=== PATIENT | female | born 1970 | race Caucasian/White ===

== ENCOUNTER → 2020-02-23 11:46 | Outpatient (BNVA) | payer OTHER, SELFPAY | PROVIDERS: PCP Internal Medicine; Visit Provider Internal Medicine Medical Oncology | DX: I26.99 Other pulmonary embolism without acute cor pulmonale (principal); Z51.81 Encounter for therapeutic drug level monitoring; Z79.01 Long term (current) use of anticoagulants | CPT/HCPCS: 85610; 99211 ==

== ENCOUNTER → 2020-03-08 10:54 | Outpatient (BNVA) | payer OTHER, SELFPAY | PROVIDERS: PCP Internal Medicine; Visit Provider Internal Medicine | DX: I26.99 Other pulmonary embolism without acute cor pulmonale (principal); Z79.01 Long term (current) use of anticoagulants; Z51.81 Encounter for therapeutic drug level monitoring | CPT/HCPCS: 85610; 99211 ==

== ENCOUNTER → 2020-03-17 08:52 | Outpatient (BNVA) | payer OTHER, SELFPAY | PROVIDERS: PCP Internal Medicine; Referring Provider Internal Medicine; Visit Provider Internal Medicine | DX: I26.99 Other pulmonary embolism without acute cor pulmonale (principal); Z51.81 Encounter for therapeutic drug level monitoring; Z79.01 Long term (current) use of anticoagulants | CPT/HCPCS: 85610 ==

== ENCOUNTER → 2020-03-24 09:44 | Outpatient (BNVA) | payer OTHER, SELFPAY | PROVIDERS: PCP Internal Medicine; Visit Provider Internal Medicine | DX: I26.99 Other pulmonary embolism without acute cor pulmonale (principal); Z51.81 Encounter for therapeutic drug level monitoring; Z79.01 Long term (current) use of anticoagulants | CPT/HCPCS: 85610; 99211 ==

== ENCOUNTER → 2020-03-31 09:30 | Outpatient (BNVA) | payer OTHER, SELFPAY | PROVIDERS: PCP Internal Medicine; Visit Provider Internal Medicine | DX: I26.99 Other pulmonary embolism without acute cor pulmonale (principal); Z51.81 Encounter for therapeutic drug level monitoring; Z79.01 Long term (current) use of anticoagulants | CPT/HCPCS: 85610; 99211 ==

== ENCOUNTER → 2020-04-12 09:40 | Outpatient (BNVA) | payer OTHER, SELFPAY | PROVIDERS: PCP Internal Medicine; Visit Provider Internal Medicine | DX: I26.99 Other pulmonary embolism without acute cor pulmonale (principal); Z51.81 Encounter for therapeutic drug level monitoring; Z79.01 Long term (current) use of anticoagulants | CPT/HCPCS: 85610; 99211 ==

== ENCOUNTER → 2020-04-20 08:56 | Outpatient (BNVA) | payer OTHER, SELFPAY | PROVIDERS: PCP Internal Medicine; Visit Provider Internal Medicine | DX: I26.99 Other pulmonary embolism without acute cor pulmonale (principal); Z51.81 Encounter for therapeutic drug level monitoring; Z79.01 Long term (current) use of anticoagulants | CPT/HCPCS: 85610; 99211 ==

== ENCOUNTER 2020-04-25 07:26 | Outpatient (REF) | payer OTHER, SELFPAY ==
--- NOTE | 2020-04-25 07:30 | MM_ITS ---
EXAMINATION: MM DIAGNOSTIC DIGITAL BREAST TOMOSYNTHESIS, BILATERAL TARGETED LEFT BREAST ULTRASOUND CLINICAL INFORMATION: Palpable abnormality upper outer aspect of the left breast with redness and pain. The lifetime risk of breast cancer based on the Tyrer-Cuzick Model is 17.3%. COMPARISON: Mammography: 12/02/2018 and studies dating back to 12/28/2010. TECHNIQUE: Digital breast tomosynthesis is performed in both the craniocaudal and mediolateral oblique views along with computer-aided detection (CAD). Synthesized 2D images are generated from the tomosynthesis. Targeted left breast ultrasound upper outer aspect. FINDINGS: The breasts are heterogeneously dense, which may obscure small masses (ACR BI-RADS breast composition Category c). 3 circumscribed densities are seen within the upper outer aspect of the left breast with one corresponding to previously biopsied solid lesion which was benign. Targeted left breast ultrasound demonstrated a 1 x 1.8 x 1.1 cm cyst 2 o'clock position 7 cm from the nipple. Previously biopsied solid lesion 2 o'clock position 6 cm from nipple noted measuring approximately 2.0 x 1.3 cm in size. At the 2 o'clock position 3 cm from nipple there is a cyst measuring approximately 1.1 x 0.8 x 1.2 cm in size. At approximately 2 o'clock position 4 cm from nipple there is a hypoechoic lesion with distal sound shadowing and no distal sound enhancement. Ultrasound-guided core biopsy of this lesion is recommended. Results are discussed with the patient at time of visit. Dr. Champagne was notified of the above recommendation. MM/MM tomosynthesis diagnostic BI IMPRESSION: Numerous cysts upper outer aspect of the left breast. Hypoechoic poorly-circumscribed lesion with distal sound shadowing 2 o'clock position approximately 4 cm from the nipple of the left breast for which ultrasound-guided core biopsy is recommended. ASSESSMENT: BI-RADS 4: Suspicious RECOMMENDATION: Ultrasound-guided core biopsy left breast.
--- NOTE | 2020-04-25 07:32 | US_ITS ---
EXAMINATION: US DIAGNOSTIC ULTRASOUND BREAST, LEFT CLINICAL INFORMATION: Palpable region which is red and tender. COMPARISON: 2018 and 11/23/2018. TECHNIQUE: Ultrasound of the breast is performed with real-time nguyen scale imaging and color Doppler. FINDINGS: Targeted left breast ultrasound demonstrated a 1 x 1.8 x 1.1 cm cyst 2 o'clock position 7 cm from the nipple. Previously biopsied solid lesion 2 o'clock position 6 cm from nipple noted measuring approximately 2.0 x 1.3 cm in size. At the 2 o'clock position 3 cm from nipple there is a cyst measuring approximately 1.1 x 0.8 x 1.2 cm in size. At approximately 2 o'clock position 4 cm from nipple there is a hypoechoic lesion with distal sound shadowing and no distal sound enhancement. Ultrasound-guided core biopsy of this lesion is recommended. Results are discussed with the patient at time of visit. Dr. Champagne was notified of the above recommendation. US/US breast LT limited IMPRESSION: Numerous cysts upper outer aspect of the left breast. Hypoechoic poorly-circumscribed lesion with distal sound shadowing 2 o'clock position approximately 4 cm from the nipple of the left breast for which ultrasound-guided core biopsy is recommended. ASSESSMENT: BI-RADS 4: Suspicious RECOMMENDATION: Ultrasound-guided core biopsy left breast.
== END 2020-04-25 07:27 | disposition home or self-care (01) ==
LOC: HO.MAMMO 07:26
PROVIDERS: PCP Internal Medicine; Visit Provider Internal Medicine Medical Oncology
DX: N64.89 Other specified disorders of breast (principal)
CPT/HCPCS: 76642; 77062; 77066

== ENCOUNTER → 2020-04-28 09:14 | Outpatient (BNVA) | payer OTHER, SELFPAY | PROVIDERS: PCP Internal Medicine; Visit Provider Internal Medicine | DX: I26.99 Other pulmonary embolism without acute cor pulmonale (principal); Z51.81 Encounter for therapeutic drug level monitoring; Z79.01 Long term (current) use of anticoagulants | CPT/HCPCS: 85610; 99211 ==

== ENCOUNTER → 2020-05-05 13:08 | Outpatient (BNVA) | payer OTHER, SELFPAY | PROVIDERS: PCP Internal Medicine; Visit Provider Internal Medicine | DX: I26.99 Other pulmonary embolism without acute cor pulmonale (principal); Z51.81 Encounter for therapeutic drug level monitoring; Z79.01 Long term (current) use of anticoagulants | CPT/HCPCS: 85610; 99211 ==

== ENCOUNTER 2020-05-08 07:43 | Outpatient (REF) | payer OTHER, SELFPAY ==
--- NOTE | 2020-05-08 | US_ITS ---
EXAMINATION: US DIAGNOSTIC ULTRASOUND BREAST, LEFT CLINICAL INFORMATION: 49-year-old female with recent diagnostic evaluation for palpable area of concern red and tender following minor trauma. No correlate on diagnostic mammography but diagnostic ultrasound suggests hypoechoic poorly circumscribed lesion 2:00 position 4 cm from nipple. Ultrasound-guided core biopsy of the ultrasound finding requested. Prior history benign left ultrasound guided core biopsy 12/02/2018 (PASH and fibrocystic changes). COMPARISON: Targeted ultrasound 04/25/2020, 11/23/2018, ultrasound-guided core biopsy 12/02/2018. Mammography 04/25/2020, 12/02/2018, 11/23/2018, and 12/28/2010. FINDINGS: Proper informed consent is obtained from the patient after discussion of the procedure, potential risks and complications, and alternatives. Patient was given an opportunity for questions. The patient appeared to understand. The patient consented to the procedure and signed the consent form. GUIDANCE: Ultrasound-guided; aseptic technique. ULTRASOUND TARGETING: Ultrasound upper outer left breast is performed targeted to the area described on recent diagnostic ultrasound 04/25/2020. There are numerous areas of shadowing in the upper outer left breast of similar appearance to recent exam. It is difficult to discern which of the areas corresponds to the finding recommended for sampling. Review of recent mammography shows no mammographic correlate with patient's palpable concern. Patient is asked to point to the area of persistent palpable concern at time of today's imaging. This corresponds to the mid to posterior 12:00 position, rather than the upper outer quadrant or anterior breast. Additional targeted ultrasound of this area shows no cystic or solid mass or focal architectural abnormality. Case discussed with recent interpreting radiologist. Management: The scheduled ultrasound-guided core biopsy was not performed due to uncertainty of ultrasound target. Recommend surgical consult. If clinically indicated, diagnostic breast MRI may be considered for further evaluation. Otherwise, follow-up diagnostic left mammography recommended in 6 months. Patient agrees with the plan. Results called to office ([facility]) for Dr. Champagne on 05/08/2020. Women's center navigator assisted in securing surgical consult for next week. A follow up diagnostic mammography appointment in 6 months was also scheduled. US/US breast LT limited IMPRESSION: The scheduled ultrasound-guided core biopsy was not performed due to uncertainty of ultrasound target. ASSESSMENT: BI-RADS 4: Suspicious RECOMMENDATION: 1. Surgical consult (scheduled for next week). 2. If clinically indicated, further evaluation of the breasts could be performed with MRI without and with gadolinium. 3. Otherwise, short interval six-month follow-up diagnostic left mammography recommended. This patient's information was entered into a reminder system with a target due date for their next mammogram.
== END 2020-05-08 07:44 | disposition home or self-care (01) ==
LOC: HO.MAMMO 07:43
PROVIDERS: PCP Internal Medicine; Visit Provider Internal Medicine Medical Oncology
DX: Z13.89 Encounter for screening for other disorder (principal)
CPT/HCPCS: 76642

== ENCOUNTER → 2020-05-11 09:16 | Outpatient (BNVA) | payer OTHER, SELFPAY | PROVIDERS: PCP Internal Medicine; Visit Provider Internal Medicine | DX: I26.99 Other pulmonary embolism without acute cor pulmonale (principal); Z79.01 Long term (current) use of anticoagulants; Z51.81 Encounter for therapeutic drug level monitoring | CPT/HCPCS: 85610; 99211 ==

== ENCOUNTER → 2020-05-16 09:08 | Outpatient (BNVA) | payer OTHER, SELFPAY | PROVIDERS: PCP Internal Medicine; Visit Provider Internal Medicine | DX: I26.99 Other pulmonary embolism without acute cor pulmonale (principal); Z51.81 Encounter for therapeutic drug level monitoring; Z79.01 Long term (current) use of anticoagulants; N63.21 Unspecified lump in the left breast, upper outer quadrant | CPT/HCPCS: 85610; 99211 ==

== ENCOUNTER 2020-05-25 14:54 | Outpatient (REF) | payer OTHER, SELFPAY ==
--- NOTE | 2020-05-25 15:24 | MR_ITS ---
EXAMINATION: MR BREAST WITHOUT AND WITH CONTRAST, BILATERAL CLINICAL INFORMATION: Palpable abnormality in the upper outer left breast. Mammogram and ultrasound workup revealed an area of abnormality in the upper outer quadrant of the left breast, biopsy was recommended however then not performed due to uncertainty of correlation with palpable finding. COMPARISON: Bilateral mammogram 04/25/2020, targeted left breast ultrasound 04/25/2020 TECHNIQUE: Imaging was performed with a dedicated breast coil. Prior to the administration of contrast, bilateral axial T1 and bilateral axial T2 weighted sequences were obtained. After the uneventful administration of?10 mL of Gadavist, dynamic contrast-enhanced VIBRANT series through the breasts in the axial plane were performed. Subtracted images were performed and reviewed. A delayed sagittal sequence through both breasts was acquired. Additionally, CAD post-processing, including maximum intensity projections, 3-D reconstructions and kinetic analysis, were performed an independent workstation and reviewed by the interpreting radiologist is a portion of this exam. FINDINGS: The patient's heterogeneously dense fibroglandular tissue demonstrates moderate background enhancement, with multiple bilateral and innumerable scattered enhancing foci. . The heterogeneous background enhancement and innumerable foci limits the sensitivity of the study. LEFT BREAST: In the 3:00 position, 4 cm from the nipple there is an oval, mixed T2 signal and heterogeneously enhancing mass containing a biopsy marker clip, this measures 1.8 cm and is consistent with the previously biopsied area of PASH. This area likely corresponds to the ultrasound finding detailed in report of 04/25/2020. There is no dominant suspicious enhancing mass, area of architectural distortion, skin thickening or nipple retraction present. No duct dilatation or ductal type enhancement is seen. RIGHT BREAST: No suspicious masslike or non-masslike enhancement. No abnormal skin thickening or nipple retraction. No abnormal architectural distortion. Review of the T2 weighted images demonstrates no fibrocystic changes or dilated ducts. Review of kinetic images reveals no additional findings. There is no suspicious internal mammary chain or axillary adenopathy. Limited views of the chest and abdomen are unremarkable. MR/MR breast BI wo/w con IMPRESSION: No MR specific evidence of malignancy. Limited exam due to background enhancement and scattered enhancing foci. The oval enhancing mass in the left breast at 3 o'clock position contains a biopsy marker clip and correlates to previously biopsied finding (benign results). ASSESSMENT: LEFT BREAST: BI-RADS 3, probably benign. RIGHT BREAST: BI-RADS 3, probably benign. RECOMMENDATIONS: Recommend follow-up MRI in 6-12 months to assess background enhancement and scattered foci for stability. Clinical follow-up for area of palpable concern without suspicious MR correlate.
== END 2020-05-25 14:55 | disposition home or self-care (01) ==
LOC: HO.MRI 14:54
PROVIDERS: Visit Provider Surgery
DX: N63.20 Unspecified lump in the left breast, unspecified quadrant (principal); N64.89 Other specified disorders of breast
CPT/HCPCS: 77049; 85610; 99211; A9585

== ENCOUNTER → 2020-05-30 10:33 | Outpatient (BNVA) | payer OTHER, SELFPAY | PROVIDERS: PCP Internal Medicine; Visit Provider Surgery | DX: Z76.89 Persons encountering health services in other specified circumstances (principal) ==

== ENCOUNTER → 2020-06-05 09:11 | Outpatient (BNVA) | payer OTHER, SELFPAY | PROVIDERS: PCP Internal Medicine; Visit Provider Internal Medicine | DX: I26.99 Other pulmonary embolism without acute cor pulmonale (principal); Z51.81 Encounter for therapeutic drug level monitoring; Z79.01 Long term (current) use of anticoagulants | CPT/HCPCS: 85610; 99211 ==

== ENCOUNTER → 2020-06-23 10:47 | Outpatient (BNVA) | payer OTHER, SELFPAY | PROVIDERS: PCP Internal Medicine; Visit Provider Internal Medicine | DX: I26.99 Other pulmonary embolism without acute cor pulmonale (principal); Z51.81 Encounter for therapeutic drug level monitoring; Z79.01 Long term (current) use of anticoagulants | CPT/HCPCS: 85610; 99211 ==

== ENCOUNTER → 2020-06-29 13:03 | Outpatient (BNVA) | payer OTHER, SELFPAY | PROVIDERS: PCP Internal Medicine; Visit Provider Internal Medicine | DX: I26.99 Other pulmonary embolism without acute cor pulmonale (principal); Z51.81 Encounter for therapeutic drug level monitoring; Z79.01 Long term (current) use of anticoagulants | CPT/HCPCS: 85610; 99211 ==

== ENCOUNTER → 2020-07-06 13:05 | Outpatient (BNVA) | payer OTHER, SELFPAY | PROVIDERS: PCP Internal Medicine; Visit Provider Internal Medicine | DX: I26.99 Other pulmonary embolism without acute cor pulmonale (principal); Z51.81 Encounter for therapeutic drug level monitoring; Z79.01 Long term (current) use of anticoagulants | CPT/HCPCS: 85610; 99211 ==

== ENCOUNTER → 2020-07-12 08:26 | Outpatient (BNVA) | payer OTHER, SELFPAY | PROVIDERS: PCP Internal Medicine; Visit Provider Internal Medicine | DX: I26.99 Other pulmonary embolism without acute cor pulmonale (principal); Z51.81 Encounter for therapeutic drug level monitoring; Z79.01 Long term (current) use of anticoagulants | CPT/HCPCS: 85610; 99211 ==

== ENCOUNTER → 2020-07-20 08:23 | Outpatient (BNVA) | payer OTHER, SELFPAY | PROVIDERS: PCP Internal Medicine; Visit Provider Internal Medicine | DX: I26.99 Other pulmonary embolism without acute cor pulmonale (principal); Z51.81 Encounter for therapeutic drug level monitoring; Z79.01 Long term (current) use of anticoagulants | CPT/HCPCS: 85610; 99211 ==

== ENCOUNTER → 2020-07-27 08:59 | Outpatient (BNVA) | payer OTHER, SELFPAY | PROVIDERS: PCP Internal Medicine; Visit Provider Internal Medicine | DX: I26.99 Other pulmonary embolism without acute cor pulmonale (principal); Z51.81 Encounter for therapeutic drug level monitoring; Z79.01 Long term (current) use of anticoagulants | CPT/HCPCS: 85610; 99211 ==

== ENCOUNTER → 2020-08-02 09:05 | Outpatient (BNVA) | payer OTHER, SELFPAY | PROVIDERS: PCP Internal Medicine; Visit Provider Internal Medicine | DX: I26.99 Other pulmonary embolism without acute cor pulmonale (principal); Z51.81 Encounter for therapeutic drug level monitoring; Z79.01 Long term (current) use of anticoagulants | CPT/HCPCS: 85610; 99211 ==

== ENCOUNTER → 2020-08-09 08:58 | Outpatient (BNVA) | payer OTHER, SELFPAY | PROVIDERS: PCP Internal Medicine; Visit Provider Internal Medicine | DX: I26.99 Other pulmonary embolism without acute cor pulmonale (principal); Z51.81 Encounter for therapeutic drug level monitoring; Z79.01 Long term (current) use of anticoagulants | CPT/HCPCS: 85610; 99211 ==

== ENCOUNTER → 2020-08-21 08:55 | Outpatient (BNVA) | payer OTHER, SELFPAY | PROVIDERS: PCP Internal Medicine; Visit Provider Internal Medicine | DX: I26.99 Other pulmonary embolism without acute cor pulmonale (principal); Z79.01 Long term (current) use of anticoagulants; Z51.81 Encounter for therapeutic drug level monitoring | CPT/HCPCS: 85610; 99211 ==

== ENCOUNTER → 2020-08-24 08:41 | Outpatient (BNVA) | payer OTHER, SELFPAY | PROVIDERS: PCP Internal Medicine; Visit Provider Internal Medicine | DX: I26.99 Other pulmonary embolism without acute cor pulmonale (principal); Z79.01 Long term (current) use of anticoagulants; Z51.81 Encounter for therapeutic drug level monitoring | CPT/HCPCS: 85610; 99211 ==

== ENCOUNTER → 2020-09-07 08:45 | Outpatient (BNVA) | payer OTHER, SELFPAY | PROVIDERS: PCP Internal Medicine; Visit Provider Internal Medicine | DX: I26.99 Other pulmonary embolism without acute cor pulmonale (principal); Z79.01 Long term (current) use of anticoagulants; Z51.81 Encounter for therapeutic drug level monitoring | CPT/HCPCS: 85610; 99211 ==

== ENCOUNTER → 2020-09-21 08:43 | Outpatient (BNVA) | payer OTHER, SELFPAY | PROVIDERS: PCP Internal Medicine; Visit Provider Internal Medicine | DX: I26.99 Other pulmonary embolism without acute cor pulmonale (principal); Z79.01 Long term (current) use of anticoagulants; Z51.81 Encounter for therapeutic drug level monitoring | CPT/HCPCS: 85610; 99211 ==

== ENCOUNTER → 2020-10-05 08:51 | Outpatient (BNVA) | payer OTHER, SELFPAY | PROVIDERS: PCP Internal Medicine; Visit Provider Internal Medicine | DX: I26.99 Other pulmonary embolism without acute cor pulmonale (principal); Z51.81 Encounter for therapeutic drug level monitoring; Z79.01 Long term (current) use of anticoagulants | CPT/HCPCS: 85610; 99211 ==

== ENCOUNTER → 2020-10-19 08:54 | Outpatient (BNVA) | payer OTHER, SELFPAY | PROVIDERS: PCP Internal Medicine; Visit Provider Internal Medicine | DX: I26.99 Other pulmonary embolism without acute cor pulmonale (principal); Z51.81 Encounter for therapeutic drug level monitoring; Z79.01 Long term (current) use of anticoagulants | CPT/HCPCS: 85610; 99211 ==

== ENCOUNTER → 2020-11-01 15:58 | Outpatient (BNVA) | payer OTHER, SELFPAY | PROVIDERS: PCP Internal Medicine; Visit Provider Internal Medicine | DX: I26.99 Other pulmonary embolism without acute cor pulmonale (principal); Z51.81 Encounter for therapeutic drug level monitoring; Z79.01 Long term (current) use of anticoagulants | CPT/HCPCS: 85610; 99211 ==

== ENCOUNTER → 2020-11-17 09:52 | Outpatient (BNVA) | payer OTHER, SELFPAY | PROVIDERS: PCP Internal Medicine; Visit Provider Internal Medicine | DX: I26.99 Other pulmonary embolism without acute cor pulmonale (principal); Z51.81 Encounter for therapeutic drug level monitoring; Z79.01 Long term (current) use of anticoagulants | CPT/HCPCS: 85610; 99211 ==

== ENCOUNTER → 2020-11-29 09:10 | Outpatient (BNVA) | payer OTHER, SELFPAY | PROVIDERS: PCP Internal Medicine; Visit Provider Internal Medicine | DX: I26.99 Other pulmonary embolism without acute cor pulmonale (principal); Z51.81 Encounter for therapeutic drug level monitoring; Z79.01 Long term (current) use of anticoagulants | CPT/HCPCS: 85610 ==

== ENCOUNTER → 2020-12-07 10:03 | Outpatient (BNVA) | payer OTHER, SELFPAY | PROVIDERS: PCP Internal Medicine; Visit Provider Internal Medicine | DX: I26.99 Other pulmonary embolism without acute cor pulmonale (principal); Z51.81 Encounter for therapeutic drug level monitoring; Z79.01 Long term (current) use of anticoagulants | CPT/HCPCS: 85610; 99211 ==

== ENCOUNTER → 2020-12-13 08:32 | Outpatient (BNVA) | payer OTHER, SELFPAY | PROVIDERS: PCP Internal Medicine; Visit Provider Internal Medicine | DX: I26.99 Other pulmonary embolism without acute cor pulmonale (principal); Z51.81 Encounter for therapeutic drug level monitoring; Z79.01 Long term (current) use of anticoagulants | CPT/HCPCS: 85610; 99211 ==

== ENCOUNTER → 2020-12-27 16:07 | Outpatient (BNVA) | payer OTHER, SELFPAY | PROVIDERS: PCP Internal Medicine; Visit Provider Internal Medicine | DX: I26.99 Other pulmonary embolism without acute cor pulmonale (principal); Z79.01 Long term (current) use of anticoagulants; Z51.81 Encounter for therapeutic drug level monitoring | CPT/HCPCS: 85610; 99211 ==

== ENCOUNTER → 2021-01-01 13:44 | Outpatient (BNVA) | payer OTHER, SELFPAY | PROVIDERS: PCP Internal Medicine | DX: Z76.89 Persons encountering health services in other specified circumstances (principal) ==

== ENCOUNTER 2021-01-01 14:03 | Outpatient (REF) | payer OTHER, SELFPAY ==
--- NOTE | ~2021-01-01 | MM_ITS ---
EXAMINATION: MM DIAGNOSTIC DIGITAL BREAST TOMOSYNTHESIS, LEFT CLINICAL INFORMATION: Prior history left breast biopsy 12/02/2018 (PASH and fibrocystic changes; no atypia or carcinoma). Planned ultrasound guided biopsy left breast 05/08/2020 for hypoechoic area upper outer quadrant cancelled as finding not clearly identified at time of procedure. Subsequent breast MR 05/25/2020 showed no suspicious finding for tissue sampling (BI-RADS 3 MR). Today's exam is short interval follow-up diagnostic left mammography. The lifetime risk of breast cancer based on the Tyrer-Cuzick Model is 18%. COMPARISON: Mammography: 04/25/2020, 12/02/2018, 11/23/2018; ultrasound left breast 05/08/2020, MRI breasts 06/04/2020. TECHNIQUE: Digital breast tomosynthesis is performed in both the craniocaudal and mediolateral oblique views along with computer-aided detection (CAD). Synthesized 2D images are generated from the tomosynthesis. FINDINGS: The breasts are heterogeneously dense, which may obscure small masses (ACR BI-RADS breast composition Category c). 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 The remainder of the breast is unremarkable. There is no interval mass or developing density. No abnormal calcifications. The axilla and skin contours are unremarkable. Results are provided to the patient at time of visit by the technologist. MM/MM tomosynthesis diagnostic LT IMPRESSION: No significant changes from prior studies. ASSESSMENT: BI-RADS 2: Benign RECOMMENDATION: 1. Routine annual mammography screening, due in 6 months. 2. Patient due for follow up bilateral breast MR (no later than 05/2021). This patient's information was entered into a reminder system with a target due date for their next mammogram.
== END 2021-01-01 14:04 | disposition home or self-care (01) ==
LOC: HO.MAMMO 14:03
PROVIDERS: Visit Provider Internal Medicine
DX: N63.20 Unspecified lump in the left breast, unspecified quadrant (principal)
CPT/HCPCS: 77061; 77065

== ENCOUNTER → 2021-01-10 15:54 | Outpatient (BNVA) | payer OTHER, SELFPAY | PROVIDERS: PCP Internal Medicine; Visit Provider Internal Medicine | DX: I26.99 Other pulmonary embolism without acute cor pulmonale (principal); Z51.81 Encounter for therapeutic drug level monitoring; Z79.01 Long term (current) use of anticoagulants | CPT/HCPCS: 85610; 99211 ==

== ENCOUNTER → 2021-01-17 16:07 | Outpatient (BNVA) | payer OTHER, SELFPAY | PROVIDERS: PCP Internal Medicine; Visit Provider Internal Medicine | DX: I26.99 Other pulmonary embolism without acute cor pulmonale (principal); Z51.81 Encounter for therapeutic drug level monitoring; Z79.01 Long term (current) use of anticoagulants | CPT/HCPCS: 85610; 99211 ==

== ENCOUNTER → 2021-01-26 08:43 | Outpatient (BNVA) | payer OTHER, SELFPAY | PROVIDERS: PCP Internal Medicine; Visit Provider Internal Medicine | DX: I26.99 Other pulmonary embolism without acute cor pulmonale (principal); Z51.81 Encounter for therapeutic drug level monitoring; Z79.01 Long term (current) use of anticoagulants | CPT/HCPCS: 85610; 99211 ==

== ENCOUNTER → 2021-02-02 11:04 | Outpatient (BNVA) | payer OTHER, SELFPAY | PROVIDERS: PCP Internal Medicine; Visit Provider Internal Medicine | DX: I26.99 Other pulmonary embolism without acute cor pulmonale (principal); Z51.81 Encounter for therapeutic drug level monitoring; Z79.01 Long term (current) use of anticoagulants | CPT/HCPCS: 85610; 99211 ==

== ENCOUNTER → 2021-02-09 08:49 | Outpatient (BNVA) | payer OTHER, SELFPAY | PROVIDERS: PCP Internal Medicine; Visit Provider Internal Medicine | DX: I26.99 Other pulmonary embolism without acute cor pulmonale (principal); Z51.81 Encounter for therapeutic drug level monitoring; Z79.01 Long term (current) use of anticoagulants | CPT/HCPCS: 85610; 99211 ==

== ENCOUNTER → 2021-02-23 08:37 | Outpatient (BNVA) | payer OTHER, SELFPAY | PROVIDERS: PCP Internal Medicine; Visit Provider Internal Medicine | DX: I26.99 Other pulmonary embolism without acute cor pulmonale (principal); Z51.81 Encounter for therapeutic drug level monitoring; Z79.01 Long term (current) use of anticoagulants | CPT/HCPCS: 85610; 99211 ==

== ENCOUNTER → 2021-03-16 08:41 | Outpatient (BNVA) | payer OTHER, SELFPAY | PROVIDERS: PCP Internal Medicine; Visit Provider Internal Medicine | DX: I26.99 Other pulmonary embolism without acute cor pulmonale (principal); Z51.81 Encounter for therapeutic drug level monitoring; Z79.01 Long term (current) use of anticoagulants | CPT/HCPCS: 85610; 99211 ==

== ENCOUNTER → 2021-03-23 08:27 | Outpatient (BNVA) | payer OTHER, SELFPAY | PROVIDERS: PCP Internal Medicine; Visit Provider Internal Medicine | DX: I26.99 Other pulmonary embolism without acute cor pulmonale (principal); Z51.81 Encounter for therapeutic drug level monitoring; Z79.01 Long term (current) use of anticoagulants | CPT/HCPCS: 85610; 99211 ==

== ENCOUNTER → 2021-03-30 08:29 | Outpatient (BNVA) | payer OTHER, SELFPAY | PROVIDERS: PCP Internal Medicine; Visit Provider Internal Medicine | DX: I26.99 Other pulmonary embolism without acute cor pulmonale (principal); Z51.81 Encounter for therapeutic drug level monitoring; Z79.01 Long term (current) use of anticoagulants | CPT/HCPCS: 85610; 99211 ==

== ENCOUNTER → 2021-04-06 08:30 | Outpatient (BNVA) | payer OTHER, SELFPAY | PROVIDERS: PCP Internal Medicine; Visit Provider Internal Medicine | DX: I26.99 Other pulmonary embolism without acute cor pulmonale (principal); Z51.81 Encounter for therapeutic drug level monitoring; Z79.01 Long term (current) use of anticoagulants | CPT/HCPCS: 85610; 99211 ==

== ENCOUNTER → 2021-04-11 08:31 | Outpatient (BNVA) | payer OTHER, SELFPAY | PROVIDERS: PCP Internal Medicine; Visit Provider Internal Medicine | DX: I26.99 Other pulmonary embolism without acute cor pulmonale (principal); Z51.81 Encounter for therapeutic drug level monitoring; Z79.01 Long term (current) use of anticoagulants | CPT/HCPCS: 85610; 99211 ==

== ENCOUNTER → 2021-04-20 10:42 | Outpatient (BNVA) | payer OTHER, SELFPAY | PROVIDERS: PCP Internal Medicine; Visit Provider Internal Medicine | DX: I26.99 Other pulmonary embolism without acute cor pulmonale (principal); Z51.81 Encounter for therapeutic drug level monitoring; Z79.01 Long term (current) use of anticoagulants | CPT/HCPCS: 85610; 99211 ==

== ENCOUNTER → 2021-04-27 08:46 | Outpatient (BNVA) | payer OTHER, SELFPAY | PROVIDERS: PCP Internal Medicine; Visit Provider Internal Medicine | DX: I26.99 Other pulmonary embolism without acute cor pulmonale (principal); Z51.81 Encounter for therapeutic drug level monitoring; Z79.01 Long term (current) use of anticoagulants | CPT/HCPCS: 85610; 99211 ==

== ENCOUNTER → 2021-05-08 09:06 | Outpatient (BNVA) | payer OTHER, SELFPAY | PROVIDERS: PCP Internal Medicine; Visit Provider Internal Medicine | DX: I26.99 Other pulmonary embolism without acute cor pulmonale (principal); Z51.81 Encounter for therapeutic drug level monitoring; Z79.01 Long term (current) use of anticoagulants | CPT/HCPCS: 85610; 99211 ==

== ENCOUNTER → 2021-05-21 13:02 | Outpatient (BNVA) | payer OTHER, SELFPAY | PROVIDERS: PCP Internal Medicine; Visit Provider Internal Medicine | DX: I26.99 Other pulmonary embolism without acute cor pulmonale (principal); Z51.81 Encounter for therapeutic drug level monitoring; Z79.01 Long term (current) use of anticoagulants | CPT/HCPCS: 85610; 99211 ==

== ENCOUNTER → 2021-05-24 15:20 | Outpatient (BNV) | payer OTHER, SELFPAY | PROVIDERS: PCP Internal Medicine; Visit Provider Internal Medicine Medical Oncology | DX: I26.99 Other pulmonary embolism without acute cor pulmonale (principal); I82.401 Acute embolism and thrombosis of unspecified deep veins of right lower extremity; Z79.01 Long term (current) use of anticoagulants; D64.9 Anemia, unspecified | CPT/HCPCS: 99213; 99214 ==

== ENCOUNTER → 2021-05-31 15:57 | Outpatient (BNVA) | payer OTHER, SELFPAY | PROVIDERS: PCP Internal Medicine; Visit Provider Internal Medicine | DX: I26.99 Other pulmonary embolism without acute cor pulmonale (principal); Z51.81 Encounter for therapeutic drug level monitoring; Z79.01 Long term (current) use of anticoagulants | CPT/HCPCS: 85610; 99211 ==

== ENCOUNTER 2021-06-04 16:16 | Emergency (ER) | payer OTHER, SELFPAY ==
--- NOTE | ~2021-06-04 | XR_ITS ---
EXAMINATION: PORTABLE CHEST 1 VIEW CLINICAL INFORMATION: CHEST PAIN . COMPARISON: 05/14/2006. TECHNIQUE: Portable frontal view of the chest was obtained. FINDINGS: The lungs are well expanded. No focal infiltrate, effusion, edema, or pneumothorax. Cardiac and mediastinal silhouettes are within normal limits for technique. No acute bony abnormality seen. XR/XR chest 1V IMPRESSION: No evidence of acute disease.
--- NOTE | 2021-06-04 16:27 | ECG_ITS ---
Test Reason : CHEST PAIN Blood Pressure : / mmHG Vent. Rate : 069 BPM Atrial Rate : 069 BPM P-R Int : 204 ms QRS Dur : 086 ms QT Int : 410 ms P-R-T Axes : 051 014 024 degrees QTc Int : 439 ms Normal sinus rhythm Normal ECG No previous ECGs available Referred By: Generic ED Physician Electronically Signed By:Cody Russell
[2021-06-04 16:41] VITALS: BP 147/84; PULSE 71; RESP 16; TEMP 36.8; O2SAT 100; BMI 33.9
[2021-06-04 16:43] LABS: MANUAL DIFF FLAG NO
[2021-06-04 16:53] LABS: Basophils Absolute Auto 0.1 X10*3/uL (0.0-0.2); Basophils Percent Auto 0.7 % (0-2); Eosinophils Absolute Auto 0.2 X10*3/uL (0.0-0.4); Eosinophils Percent Auto 2.3 % (0-4); Hematocrit 36.8 % (37.0-47.0); Hemoglobin 11.7 g/dl (12.0-16.0); Imm Gran Abs Auto 0.03 X10*3/uL (0.00-0.03); Imm Gran Pct Auto 0.3 % (0.0-0.4); Lymphocytes Absolute Auto 2.1 X10*3/uL (1.2-4.9); Lymphocytes Percent Auto 23.4 % (20-40); Mean Corpuscular HGB Conc 31.8 g/dl (31.0-35.0); Mean Corpuscular Hemoglobin 26.7 pg (27.0-33.0); Mean Platelet Volume 9.4 fL (9.4-12.3); Monocytes Absolute Auto 0.7 X10*3/uL (0.1-1.2); Monocytes Percent Auto 7.5 % (2-11); Neutrophils Absolute Auto 5.9 x10*3/uL (2.0-8.3); Neutrophils Percent Auto 65.8 % (45-73); Platelet Count 335 X10*3/uL (160-400); Red Blood Count 4.38 X10*6/uL (4.20-5.50); Red Cell Distribution Width 13.9 % (11.0-16.0)
[2021-06-04 16:57] LABS: Anion Gap 11 (12-20); Blood Urea Nitrogen 14 mg/dL (9-16); Calcium 8.9 mg/dL (8.4-10.2); Carbon Dioxide 26 mmol/L (22-29); Chloride 106 mmol/L (96-108); Creatinine Clr Calc Pharmacy 88.9; Estimated Glomerular Filt Rate > 60; Glucose Random 95 mg/dL (60-115); Potassium 4.1 mmol/L (3.3-5.1); Sodium 139 mmol/L (135-145)
[2021-06-04 17:01] LABS: COVID-19 Test Negative (Negative); IDNOW Serial# 9DD0AD1C
[2021-06-04 17:05] LABS: Troponin-I High Sensitivity 5.6 ng/L (<3.5-17.0)
== END 2021-06-04 21:51 | disposition left against medical advice (07) ==
PROVIDERS: Emergency Provider Emergency Medicine
DX: R07.9 Chest pain, unspecified (principal); R51.9 Headache, unspecified; Z20.822 Contact with and (suspected) exposure to COVID-19; Z86.711 Personal history of pulmonary embolism; Z79.01 Long term (current) use of anticoagulants
CPT/HCPCS: 36415; 71045; 80048; 84484; 85025; 87635; 93005; 99283

== ENCOUNTER → 2021-06-11 16:04 | Outpatient (BNVA) | payer OTHER, SELFPAY | PROVIDERS: Visit Provider Internal Medicine | DX: I26.99 Other pulmonary embolism without acute cor pulmonale (principal); Z51.81 Encounter for therapeutic drug level monitoring; Z79.01 Long term (current) use of anticoagulants | CPT/HCPCS: 85610; 99211 ==

== ENCOUNTER → 2021-06-25 15:40 | Outpatient (BNVA) | payer OTHER, SELFPAY | PROVIDERS: PCP Internal Medicine; Referring Provider Internal Medicine; Visit Provider Nurse Practitioner ==

== ENCOUNTER → 2021-06-26 08:49 | Outpatient (BNVA) | payer OTHER, SELFPAY | PROVIDERS: PCP Internal Medicine; Visit Provider Internal Medicine | DX: I26.99 Other pulmonary embolism without acute cor pulmonale (principal); Z51.81 Encounter for therapeutic drug level monitoring; Z79.01 Long term (current) use of anticoagulants | CPT/HCPCS: 85610; 99211 ==

== ENCOUNTER → 2021-07-04 08:31 | Outpatient (BNVA) | payer OTHER, SELFPAY | PROVIDERS: PCP Internal Medicine; Visit Provider Internal Medicine | DX: I26.99 Other pulmonary embolism without acute cor pulmonale (principal); Z51.81 Encounter for therapeutic drug level monitoring; Z79.01 Long term (current) use of anticoagulants | CPT/HCPCS: 85610; 99211 ==

== ENCOUNTER → 2021-07-18 15:52 | Outpatient (BNVA) | payer OTHER, SELFPAY | PROVIDERS: PCP Internal Medicine; Visit Provider Internal Medicine | DX: I26.99 Other pulmonary embolism without acute cor pulmonale (principal); Z51.81 Encounter for therapeutic drug level monitoring; Z79.01 Long term (current) use of anticoagulants | CPT/HCPCS: 85610; 99211 ==

== ENCOUNTER → 2021-08-07 08:27 | Outpatient (BNVA) | payer OTHER, SELFPAY | PROVIDERS: PCP Internal Medicine; Visit Provider Internal Medicine | DX: I26.99 Other pulmonary embolism without acute cor pulmonale (principal); Z51.81 Encounter for therapeutic drug level monitoring; Z79.01 Long term (current) use of anticoagulants | CPT/HCPCS: 85610; 99211 ==

== ENCOUNTER → 2021-08-15 08:31 | Outpatient (BNVA) | payer OTHER, SELFPAY | PROVIDERS: PCP Internal Medicine; Visit Provider Internal Medicine | DX: I26.99 Other pulmonary embolism without acute cor pulmonale (principal); Z51.81 Encounter for therapeutic drug level monitoring; Z79.01 Long term (current) use of anticoagulants | CPT/HCPCS: 85610; 99211 ==

== ENCOUNTER → 2021-08-29 09:08 | Outpatient (BNVA) | payer OTHER, SELFPAY | PROVIDERS: PCP Internal Medicine; Visit Provider Internal Medicine | DX: I26.99 Other pulmonary embolism without acute cor pulmonale (principal); Z79.01 Long term (current) use of anticoagulants; Z51.81 Encounter for therapeutic drug level monitoring | CPT/HCPCS: 85610; 99211 ==

== ENCOUNTER → 2021-09-07 15:33 | Outpatient (BNVA) | payer OTHER, SELFPAY | PROVIDERS: PCP Internal Medicine; Visit Provider Internal Medicine | DX: I26.99 Other pulmonary embolism without acute cor pulmonale (principal); Z79.01 Long term (current) use of anticoagulants; Z51.81 Encounter for therapeutic drug level monitoring | CPT/HCPCS: 85610; 99211 ==

== ENCOUNTER → 2021-09-12 08:39 | Outpatient (BNVA) | payer OTHER, SELFPAY | PROVIDERS: PCP Internal Medicine; Visit Provider Internal Medicine | DX: I26.99 Other pulmonary embolism without acute cor pulmonale (principal); Z79.01 Long term (current) use of anticoagulants; Z51.81 Encounter for therapeutic drug level monitoring | CPT/HCPCS: 85610; 99211 ==

== ENCOUNTER → 2021-09-26 08:54 | Outpatient (BNVA) | payer OTHER, SELFPAY | PROVIDERS: PCP Internal Medicine; Visit Provider Internal Medicine | DX: I26.99 Other pulmonary embolism without acute cor pulmonale (principal); Z79.01 Long term (current) use of anticoagulants; Z51.81 Encounter for therapeutic drug level monitoring | CPT/HCPCS: 85610; 99211 ==

== ENCOUNTER → 2021-10-26 09:24 | Outpatient (BNVA) | payer OTHER, SELFPAY | PROVIDERS: PCP Internal Medicine; Visit Provider Internal Medicine | DX: I26.99 Other pulmonary embolism without acute cor pulmonale (principal); Z79.01 Long term (current) use of anticoagulants; Z51.81 Encounter for therapeutic drug level monitoring | CPT/HCPCS: 85610; 99211 ==

== ENCOUNTER → 2021-10-31 15:55 | Outpatient (BNVA) | payer OTHER, SELFPAY | PROVIDERS: PCP Internal Medicine; Visit Provider Internal Medicine | DX: I26.99 Other pulmonary embolism without acute cor pulmonale (principal); Z79.01 Long term (current) use of anticoagulants; Z51.81 Encounter for therapeutic drug level monitoring | CPT/HCPCS: 85610; 99211 ==

== ENCOUNTER → 2021-11-05 15:45 | Outpatient (BNVA) | payer OTHER, SELFPAY | PROVIDERS: PCP Internal Medicine; Visit Provider Internal Medicine | DX: I26.99 Other pulmonary embolism without acute cor pulmonale (principal); Z51.81 Encounter for therapeutic drug level monitoring; Z79.01 Long term (current) use of anticoagulants | CPT/HCPCS: 85610; 99211 ==

== ENCOUNTER 2021-12-05 06:08 | Outpatient (REF) | payer OTHER, SELFPAY ==
[2021-12-05 06:18] LABS: MANUAL DIFF FLAG NO
[2021-12-05 07:32] LABS: Basophils Absolute Auto 0.1 X10*3/uL (0.0-0.2); Eosinophils Absolute Auto 0.2 X10*3/uL (0.0-0.4); Eosinophils Percent Auto 2.6 % (0-4); Hematocrit 36.3 % (37.0-47.0); Hemoglobin 11.7 g/dl (12.0-16.0); Imm Gran Abs Auto 0.03 X10*3/uL (0.00-0.03); Imm Gran Pct Auto 0.4 % (0.0-0.4); Lymphocytes Absolute Auto 2.1 X10*3/uL (1.2-4.9); Lymphocytes Percent Auto 29.1 % (20-40); Mean Corpuscular HGB Conc 32.2 g/dl (31.0-35.0); Mean Corpuscular Hemoglobin 26.6 pg (27.0-33.0); Mean Corpuscular Volume 82.5 fL (80.0-98.0); Mean Platelet Volume 9.9 fL (9.4-12.3); Monocytes Absolute Auto 0.7 X10*3/uL (0.1-1.2); Monocytes Percent Auto 9.8 % (2-11); Neutrophils Absolute Auto 4.2 x10*3/uL (2.0-8.3); Neutrophils Percent Auto 57.1 % (45-73); Platelet Count 308 X10*3/uL (160-400); Red Cell Distribution Width 15.5 % (11.0-16.0); White Blood Count 7.3 X10*3/uL (4.8-10.8)
[2021-12-05 07:41] LABS: D Dimer High Sensitivity < 150 NG/ML
[2021-12-05 08:06] LABS: Alanine Aminotransferase 29 U/L (0-31); Albumin Level 3.7 g/dL (3.5-5.0); Alkaline Phosphatase 94 U/L (39-117); Anion Gap 11 (12-20); Aspartate Amino Transferase 36 U/L (5-31); Bilirubin Total 0.2 mg/dL (0.0-1.0); Blood Urea Nitrogen 15 mg/dL (9-16); Calcium 8.8 mg/dL (8.4-10.2); Carbon Dioxide 24 mmol/L (22-29); Chloride 108 mmol/L (96-108); Estimated Glomerular Filt Rate > 60; Glucose Random 114 mg/dL (60-115); Potassium 4.7 mmol/L (3.3-5.1); Sodium 138 mmol/L (135-145); Total Protein 6.4 g/dL (6.5-8.0)
[2021-12-08 15:48] LABS: TS Negative Control Passed; TS Panel A 0; TS Panel B 0; TS Positive Control Passed; TSpotTB Negative (Negative)
== END 2021-12-05 06:09 | disposition home or self-care (01) ==
LOC: HO.LAB 06:08
PROVIDERS: PCP Internal Medicine; Visit Provider Internal Medicine Medical Oncology
DX: I26.99 Other pulmonary embolism without acute cor pulmonale (principal); I82.403 Acute embolism and thrombosis of unspecified deep veins of lower extremity, bilateral
CPT/HCPCS: 80053; 85025; 85379; 86481

== ENCOUNTER → 2021-12-10 10:00 | Outpatient (BNVA) | payer OTHER, SELFPAY | PROVIDERS: PCP Internal Medicine; Visit Provider Internal Medicine | DX: I26.99 Other pulmonary embolism without acute cor pulmonale (principal); Z51.81 Encounter for therapeutic drug level monitoring; Z79.01 Long term (current) use of anticoagulants | CPT/HCPCS: 85610; 99211 ==

== ENCOUNTER → 2021-12-25 09:05 | Outpatient (BNVA) | payer OTHER, SELFPAY | PROVIDERS: PCP Internal Medicine; Visit Provider Internal Medicine | DX: I26.99 Other pulmonary embolism without acute cor pulmonale (principal); Z51.81 Encounter for therapeutic drug level monitoring; Z79.01 Long term (current) use of anticoagulants | CPT/HCPCS: 85610; 99211 ==

== ENCOUNTER → 2021-12-25 09:49 | Outpatient (BNVA) | payer OTHER, SELFPAY | PROVIDERS: PCP Internal Medicine | DX: Z02.83 Encounter for blood-alcohol and blood-drug test (principal) ==

== ENCOUNTER → 2022-01-02 10:13 | Outpatient (BNVA) | payer OTHER, SELFPAY | PROVIDERS: PCP Internal Medicine; Visit Provider Internal Medicine | DX: I26.99 Other pulmonary embolism without acute cor pulmonale (principal); Z51.81 Encounter for therapeutic drug level monitoring; Z79.01 Long term (current) use of anticoagulants | CPT/HCPCS: 85610; 99211 ==

== ENCOUNTER → 2022-01-04 15:39 | Outpatient (BNVA) | payer OTHER, SELFPAY | PROVIDERS: PCP Internal Medicine; Visit Provider Internal Medicine | DX: I26.99 Other pulmonary embolism without acute cor pulmonale (principal); Z51.81 Encounter for therapeutic drug level monitoring; Z79.01 Long term (current) use of anticoagulants | CPT/HCPCS: Q3014 ==

== ENCOUNTER → 2022-01-07 08:41 | Outpatient (BNVA) | payer OTHER, SELFPAY | PROVIDERS: PCP Internal Medicine; Visit Provider Internal Medicine | DX: I26.99 Other pulmonary embolism without acute cor pulmonale (principal); Z51.81 Encounter for therapeutic drug level monitoring; Z79.01 Long term (current) use of anticoagulants | CPT/HCPCS: 85610; 99211 ==

== ENCOUNTER → 2022-01-16 08:57 | Outpatient (BNVA) | payer OTHER, SELFPAY | PROVIDERS: PCP Internal Medicine; Visit Provider Internal Medicine | DX: I26.99 Other pulmonary embolism without acute cor pulmonale (principal); Z51.81 Encounter for therapeutic drug level monitoring; Z79.01 Long term (current) use of anticoagulants | CPT/HCPCS: 85610; 99211 ==

== ENCOUNTER → 2022-01-23 15:36 | Outpatient (BNVA) | payer OTHER, SELFPAY | PROVIDERS: PCP Internal Medicine; Visit Provider Internal Medicine | DX: I26.99 Other pulmonary embolism without acute cor pulmonale (principal); Z51.81 Encounter for therapeutic drug level monitoring; Z79.01 Long term (current) use of anticoagulants | CPT/HCPCS: 85610; 99211 ==

== ENCOUNTER → 2022-02-01 08:35 | Outpatient (BNVA) | payer OTHER, SELFPAY | PROVIDERS: PCP Internal Medicine; Visit Provider Internal Medicine | DX: I26.99 Other pulmonary embolism without acute cor pulmonale (principal); Z51.81 Encounter for therapeutic drug level monitoring; Z79.01 Long term (current) use of anticoagulants | CPT/HCPCS: 85610; 99211 ==

== ENCOUNTER → 2022-02-07 08:28 | Outpatient (BNVA) | payer OTHER, SELFPAY | PROVIDERS: PCP Internal Medicine; Visit Provider Internal Medicine | DX: I26.99 Other pulmonary embolism without acute cor pulmonale (principal); Z51.81 Encounter for therapeutic drug level monitoring; Z79.01 Long term (current) use of anticoagulants | CPT/HCPCS: 85610; 99211 ==

== ENCOUNTER → 2022-02-13 10:55 | Outpatient (BNVA) | payer OTHER, SELFPAY | PROVIDERS: PCP Internal Medicine; Visit Provider Internal Medicine | DX: I26.99 Other pulmonary embolism without acute cor pulmonale (principal); Z79.01 Long term (current) use of anticoagulants; Z51.81 Encounter for therapeutic drug level monitoring | CPT/HCPCS: 85610; 99211 ==

== ENCOUNTER → 2022-02-20 11:03 | Outpatient (BNVA) | payer OTHER, SELFPAY | PROVIDERS: PCP Internal Medicine; Visit Provider Internal Medicine | DX: I26.99 Other pulmonary embolism without acute cor pulmonale (principal); Z79.01 Long term (current) use of anticoagulants; Z51.81 Encounter for therapeutic drug level monitoring | CPT/HCPCS: 85610; 99211 ==

== ENCOUNTER → 2022-03-06 11:14 | Outpatient (BNVA) | payer OTHER, SELFPAY | PROVIDERS: PCP Internal Medicine; Visit Provider Internal Medicine | DX: I26.99 Other pulmonary embolism without acute cor pulmonale (principal); Z79.01 Long term (current) use of anticoagulants; Z51.81 Encounter for therapeutic drug level monitoring | CPT/HCPCS: 85610; 99211 ==

== ENCOUNTER → 2022-03-20 11:16 | Outpatient (BNVA) | payer OTHER, SELFPAY | PROVIDERS: PCP Internal Medicine; Visit Provider Internal Medicine | DX: I26.99 Other pulmonary embolism without acute cor pulmonale (principal); Z79.01 Long term (current) use of anticoagulants; Z51.81 Encounter for therapeutic drug level monitoring | CPT/HCPCS: 85610; 99211 ==

== ENCOUNTER → 2022-04-03 11:12 | Outpatient (BNVA) | payer OTHER, SELFPAY | PROVIDERS: PCP Internal Medicine; Visit Provider Internal Medicine | DX: I26.99 Other pulmonary embolism without acute cor pulmonale (principal); Z79.01 Long term (current) use of anticoagulants; Z51.81 Encounter for therapeutic drug level monitoring | CPT/HCPCS: 85610; 99211 ==

== ENCOUNTER → 2022-04-17 11:01 | Outpatient (BNVA) | payer OTHER, SELFPAY | PROVIDERS: PCP Internal Medicine; Visit Provider Internal Medicine | DX: I26.99 Other pulmonary embolism without acute cor pulmonale (principal); Z51.81 Encounter for therapeutic drug level monitoring; Z79.01 Long term (current) use of anticoagulants | CPT/HCPCS: 85610; 99211 ==

== ENCOUNTER → 2022-05-02 09:24 | Outpatient (BNVA) | payer OTHER, SELFPAY | PROVIDERS: PCP Internal Medicine; Visit Provider Internal Medicine | DX: I26.99 Other pulmonary embolism without acute cor pulmonale (principal); Z79.01 Long term (current) use of anticoagulants; Z51.81 Encounter for therapeutic drug level monitoring | CPT/HCPCS: 85610; 99211 ==

== ENCOUNTER → 2022-05-21 08:58 | Outpatient (BNVA) | payer OTHER, SELFPAY | PROVIDERS: PCP Internal Medicine; Visit Provider Internal Medicine | DX: I26.99 Other pulmonary embolism without acute cor pulmonale (principal); Z51.81 Encounter for therapeutic drug level monitoring; Z79.01 Long term (current) use of anticoagulants | CPT/HCPCS: 85610; 99211 ==

== ENCOUNTER → 2022-05-27 10:08 | Outpatient (BNVA) | payer OTHER, SELFPAY | PROVIDERS: PCP Internal Medicine; Visit Provider Internal Medicine | DX: I26.99 Other pulmonary embolism without acute cor pulmonale (principal); Z51.81 Encounter for therapeutic drug level monitoring; Z79.01 Long term (current) use of anticoagulants | CPT/HCPCS: 85610; 99211 ==

== ENCOUNTER 2022-05-29 15:32 | Outpatient (REF) | payer OTHER, SELFPAY ==
[2022-05-29 16:52] LABS: Erythrocyte Sedimentation Rate 7 MM/HR (0-20)
[2022-05-31 05:28] LABS: Lyme Abs Screen <0.90 index
[2022-05-31 13:48] LABS: Anti Nuclear Antibody Screen NEGATIVE (NEGATIVE)
[2022-06-04 10:44] LABS: IgA 123 mg/dL (47-310); IgG 923 mg/dL (600-1640); IgM 65 mg/dL (50-300)
== END 2022-05-29 15:33 | disposition home or self-care (01) ==
LOC: HO.LAB 15:32
PROVIDERS: PCP Internal Medicine; Visit Provider Psychiatry & Neurology Neurology
DX: G93.40 Encephalopathy, unspecified (principal)
CPT/HCPCS: 36415; 82784; 85652; 86038; 86039; 86334; 86617; 86618

== ENCOUNTER 2022-05-30 10:10 | Outpatient (REF) | payer OTHER, SELFPAY ==
--- NOTE | ~2022-05-30 | MR_ITS ---
EXAMINATION: MR BRAIN WITHOUT AND WITH CONTRAST CLINICAL INFORMATION: Encephalopathy COMPARISON: None TECHNIQUE: Multiplanar multisequence MR imaging of the brain was obtained without and following the administration of 10 mL Gadavist intravenous contrast. FINDINGS: There is no acute infarct on diffusion-weighted imaging. There is no intracranial hemorrhage on iron-sensitive imaging. No extra-axial collection or mass effect/herniation. Normal parenchymal signal characteristics. No hydrocephalus. The ventricles are normal in morphology and size. No abnormal parenchymal or extra-axial enhancement. The major flow voids at the skull base are preserved. The midline structures are normal. The cerebellar tonsils are normally positioned. The craniocervical junction is normal. Marrow signal is within normal limits. The visualized soft tissues are without significant abnormality. Left mastoid fluid. MR/MR head/brain wo/w con IMPRESSION: Unremarkable contrast enhanced MRI of the brain.
== END 2022-05-30 10:11 | disposition home or self-care (01) ==
LOC: HO.MRI 10:10
PROVIDERS: PCP Internal Medicine; Visit Provider Psychiatry & Neurology Neurology
DX: G93.40 Encephalopathy, unspecified (principal)
CPT/HCPCS: 70553; A9585

== ENCOUNTER → 2022-06-03 08:56 | Outpatient (BNVA) | payer OTHER, SELFPAY | PROVIDERS: PCP Internal Medicine; Visit Provider Internal Medicine | DX: I26.99 Other pulmonary embolism without acute cor pulmonale (principal); Z51.81 Encounter for therapeutic drug level monitoring; Z79.01 Long term (current) use of anticoagulants | CPT/HCPCS: 85610; 99211 ==

== ENCOUNTER → 2022-06-06 10:24 | Outpatient (BNVA) | payer OTHER, SELFPAY | PROVIDERS: PCP Internal Medicine; Visit Provider Internal Medicine | DX: I26.99 Other pulmonary embolism without acute cor pulmonale (principal); Z51.81 Encounter for therapeutic drug level monitoring; Z79.01 Long term (current) use of anticoagulants | CPT/HCPCS: 85610; 99211 ==

== ENCOUNTER → 2022-06-11 11:15 | Outpatient (BNVA) | payer OTHER, SELFPAY | PROVIDERS: PCP Internal Medicine; Visit Provider Internal Medicine | DX: I26.99 Other pulmonary embolism without acute cor pulmonale (principal); Z51.81 Encounter for therapeutic drug level monitoring; Z79.01 Long term (current) use of anticoagulants | CPT/HCPCS: 85610; 99211 ==

== ENCOUNTER → 2022-06-19 11:00 | Outpatient (BNVA) | payer OTHER, SELFPAY | PROVIDERS: PCP Internal Medicine; Visit Provider Internal Medicine | DX: I26.99 Other pulmonary embolism without acute cor pulmonale (principal); Z51.81 Encounter for therapeutic drug level monitoring; Z79.01 Long term (current) use of anticoagulants | CPT/HCPCS: 85610; 99211 ==

== ENCOUNTER → 2022-07-03 11:09 | Outpatient (BNVA) | payer OTHER, SELFPAY | PROVIDERS: PCP Internal Medicine; Visit Provider Internal Medicine | DX: I26.99 Other pulmonary embolism without acute cor pulmonale (principal); Z51.81 Encounter for therapeutic drug level monitoring; Z79.01 Long term (current) use of anticoagulants | CPT/HCPCS: 85610; 99211 ==

== ENCOUNTER → 2022-07-18 08:36 | Outpatient (BNVA) | payer OTHER, SELFPAY | PROVIDERS: PCP Internal Medicine; Visit Provider Internal Medicine | DX: I26.99 Other pulmonary embolism without acute cor pulmonale (principal); Z51.81 Encounter for therapeutic drug level monitoring; Z79.01 Long term (current) use of anticoagulants | CPT/HCPCS: 85610; 99211 ==

== ENCOUNTER → 2022-08-06 10:51 | Outpatient (BNVA) | payer OTHER, SELFPAY | PROVIDERS: PCP Internal Medicine; Visit Provider Internal Medicine | DX: I26.99 Other pulmonary embolism without acute cor pulmonale (principal); Z51.81 Encounter for therapeutic drug level monitoring; Z79.01 Long term (current) use of anticoagulants | CPT/HCPCS: 85610; 99211 ==

== ENCOUNTER → 2022-08-13 11:15 | Outpatient (BNVA) | payer OTHER, SELFPAY | PROVIDERS: PCP Internal Medicine; Visit Provider Internal Medicine | DX: I26.99 Other pulmonary embolism without acute cor pulmonale (principal); Z51.81 Encounter for therapeutic drug level monitoring; Z79.01 Long term (current) use of anticoagulants | CPT/HCPCS: 85610; 99211 ==

== ENCOUNTER → 2022-08-21 10:29 | Outpatient (BNVA) | payer OTHER, SELFPAY | PROVIDERS: PCP Internal Medicine; Visit Provider Internal Medicine | DX: I26.99 Other pulmonary embolism without acute cor pulmonale (principal); Z51.81 Encounter for therapeutic drug level monitoring; Z79.01 Long term (current) use of anticoagulants | CPT/HCPCS: 85610; 99211 ==

== ENCOUNTER → 2022-09-10 11:06 | Outpatient (BNVA) | payer OTHER, SELFPAY | PROVIDERS: PCP Internal Medicine; Visit Provider Internal Medicine | DX: I26.99 Other pulmonary embolism without acute cor pulmonale (principal); Z51.81 Encounter for therapeutic drug level monitoring; Z79.01 Long term (current) use of anticoagulants | CPT/HCPCS: 85610; 99211 ==

== ENCOUNTER → 2022-09-25 10:46 | Outpatient (BNVA) | payer OTHER, SELFPAY | PROVIDERS: PCP Internal Medicine; Visit Provider Internal Medicine | DX: I26.99 Other pulmonary embolism without acute cor pulmonale (principal); Z51.81 Encounter for therapeutic drug level monitoring; Z79.01 Long term (current) use of anticoagulants | CPT/HCPCS: 85610; 99211 ==

== ENCOUNTER → 2022-10-02 08:23 | Outpatient (BNVA) | payer OTHER, SELFPAY | PROVIDERS: PCP Internal Medicine; Visit Provider Internal Medicine | DX: Z51.81 Encounter for therapeutic drug level monitoring (principal); Z79.01 Long term (current) use of anticoagulants; I26.99 Other pulmonary embolism without acute cor pulmonale | CPT/HCPCS: 85610; 99211 ==

== ENCOUNTER → 2022-10-10 08:16 | Outpatient (BNVA) | payer OTHER, SELFPAY | PROVIDERS: PCP Internal Medicine; Visit Provider Internal Medicine | DX: Z51.81 Encounter for therapeutic drug level monitoring (principal); Z79.01 Long term (current) use of anticoagulants; I26.99 Other pulmonary embolism without acute cor pulmonale | CPT/HCPCS: 85610; 99211 ==

== ENCOUNTER → 2022-10-17 08:21 | Outpatient (BNVA) | payer OTHER, SELFPAY | PROVIDERS: PCP Internal Medicine; Visit Provider Internal Medicine | DX: I26.99 Other pulmonary embolism without acute cor pulmonale (principal); Z51.81 Encounter for therapeutic drug level monitoring; Z79.01 Long term (current) use of anticoagulants | CPT/HCPCS: 85610; 99211 ==

== ENCOUNTER → 2022-10-31 08:18 | Outpatient (BNVA) | payer OTHER, SELFPAY | PROVIDERS: PCP Internal Medicine; Visit Provider Internal Medicine | DX: Z51.81 Encounter for therapeutic drug level monitoring (principal); Z79.01 Long term (current) use of anticoagulants; I26.99 Other pulmonary embolism without acute cor pulmonale | CPT/HCPCS: 85610; 99211 ==

== ENCOUNTER → 2022-11-14 08:26 | Outpatient (BNVA) | payer OTHER, SELFPAY | PROVIDERS: PCP Internal Medicine; Visit Provider Internal Medicine | DX: Z51.81 Encounter for therapeutic drug level monitoring (principal); Z79.01 Long term (current) use of anticoagulants | CPT/HCPCS: 85610; 99211 ==

== ENCOUNTER 2022-11-28 08:16 | Outpatient (AMB) | payer OTHER, SELFPAY ==
--- NOTE | 2022-11-28 08:23 | MHC.OFFVISCO ---
Intake Intake Visit Reasons: Anticoagulation Allergies ciprofloxacin [From CIPRO] Allergy (Severe, Verified 11/28/22 08:19) ANAPHYLAXIS coconut [COCONUT] Allergy (Severe, Verified 11/28/22 08:19) Anaphylaxis fentanyl [FENTANYL] Allergy (Severe, Verified 11/28/22 08:19) ANAPHYLAXIS levofloxacin [From LEVAQUIN] Allergy (Severe, Verified 11/28/22 08:19) Anaphylaxis morphine [MORPHINE] Allergy (Severe, Verified 11/28/22 08:19) ANAPHYLAXIS oxycodone [OXYCODONE] Allergy (Severe, Verified 11/28/22 08:19) ANAPHYLAXIS Narcotics Allergy (Severe, Uncoded 11/28/22 08:19) Anaphylaxis Medication List - Last Reconciled 11/28/22 by Lakesha Winkler RN atorvastatin 20 mg PO BEDTIME 90 days krill oil mg PO DAILY [L theanine 200 mg PO DAILY] [MULTI VITAMIN 1 tab PO DAILY] [MUSHROOM SUPPLEMENT PO .PRN] [TURMERIC PO .PRN] warfarin (Jantoven) 10 mg See Protocol PO DAILY warfarin 2.5 mg See Protocol PO DAILY Nursing Note INR: 3.0 in therapeutic range Medications and supplements reviewed- no changes No changes in health, diet, medications, or supplements, Denies any signs and symptoms of bleeding or bruising or clotting. Bleeding, bruising, clotting discussed Nutritional guidance given Dose: 7.5mg x 2, 10mg x 5 F/U INR: 2 weeks Patient verbalizes understanding of instructions given Anti-Coag Initial Assessment Social Hx Patient Tobacco Use Status: Former Tobacco user Tobacco use type: Cigarette alcohol intake: current Alcohol intake frequency: holidays/special occasions only Coding Level of Care Code Est Patient Level 1 Diagnoses Current use of anticoagulant therapy Z79.01 Assessment & Plan Assessment & Plan (1) Current use of anticoagulant therapy: Code(s): Z79.01 - [facility] (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
[2022-11-28 08:25] LABS: Prothrombin Time Whole Bld POC 35.8 sec (11.1-13.5)
== END 2022-11-28 08:28 | disposition home or self-care (01) ==
LOC: HO.ACS 08:16
PROVIDERS: PCP Internal Medicine; Visit Provider Internal Medicine
DX: Z79.01 Long term (current) use of anticoagulants (principal)

== ENCOUNTER → 2022-11-28 08:16 | Outpatient (BNVA) | payer OTHER, SELFPAY | PROVIDERS: PCP Internal Medicine; Visit Provider Internal Medicine | DX: Z51.81 Encounter for therapeutic drug level monitoring (principal); Z79.01 Long term (current) use of anticoagulants; I26.99 Other pulmonary embolism without acute cor pulmonale | CPT/HCPCS: 85610; 99211 ==

== ENCOUNTER 2022-12-12 08:12 | Outpatient (AMB) | payer OTHER, SELFPAY ==
--- NOTE | 2022-12-12 08:32 | MHC.OFFVISCO ---
Intake Intake Visit Reasons: Anticoagulation Allergies ciprofloxacin [From CIPRO] Allergy (Severe, Verified 12/12/22 08:27) ANAPHYLAXIS coconut [COCONUT] Allergy (Severe, Verified 12/12/22 08:27) Anaphylaxis fentanyl [FENTANYL] Allergy (Severe, Verified 12/12/22 08:27) ANAPHYLAXIS levofloxacin [From LEVAQUIN] Allergy (Severe, Verified 12/12/22 08:27) Anaphylaxis morphine [MORPHINE] Allergy (Severe, Verified 12/12/22 08:27) ANAPHYLAXIS oxycodone [OXYCODONE] Allergy (Severe, Verified 12/12/22 08:27) ANAPHYLAXIS Narcotics Allergy (Severe, Uncoded 12/12/22 08:27) Anaphylaxis Medication List - Last Reconciled 12/12/22 by Lakesha Winkler RN atorvastatin 20 mg PO BEDTIME 90 days krill oil mg PO DAILY [L theanine 200 mg PO DAILY] [MULTI VITAMIN 1 tab PO DAILY] [MUSHROOM SUPPLEMENT PO .PRN] [TURMERIC PO .PRN] warfarin (Jantoven) 10 mg See Protocol PO DAILY warfarin 2.5 mg See Protocol PO DAILY Nursing Note INR 1.8-?? out of therapeutic range Medications and supplements reviewed Patient status: pt dieting and eating large amounts of proteins, decreased stress Medications or supplements: no changes Diet: appetite good Denies any signs and symptoms of bleeding or clotting or unusual bruising Bleeding, bruising, clotting discussed Nutritional guidance given: no greens for 2 days, eat a red today Dose: 10mg today and increase weekly dosing to 10mg x6, 7.5mg x 1 due to increased protein intake F/U INR Date : 1 week? Patient verbalizing understanding of instructions given. 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
[2022-12-13 08:43] LABS: ~PT, ~INR - Anti Coag Clinic 1.8 (0.9-1.1)
== END 2022-12-12 08:41 | disposition home or self-care (01) ==
LOC: HO.ACS 08:12
PROVIDERS: PCP Internal Medicine; Visit Provider Internal Medicine
DX: Z79.01 Long term (current) use of anticoagulants (principal)

== ENCOUNTER → 2022-12-12 08:12 | Outpatient (BNVA) | payer OTHER, SELFPAY | PROVIDERS: PCP Internal Medicine; Visit Provider Internal Medicine | DX: Z51.81 Encounter for therapeutic drug level monitoring (principal); Z79.01 Long term (current) use of anticoagulants; I26.99 Other pulmonary embolism without acute cor pulmonale | CPT/HCPCS: 85610; 99211 ==

== ENCOUNTER 2022-12-19 08:36 | Outpatient (AMB) | payer OTHER, SELFPAY ==
[2022-12-19 08:51] LABS: Prothrombin Time Whole Bld POC 26.8 sec (11.1-13.5); ~PT, ~INR - Anti Coag Clinic 2.2 (0.9-1.1)
--- NOTE | 2022-12-19 08:54 | MHC.OFFVISCO ---
Intake Intake Visit Reasons: Anticoagulation Allergies ciprofloxacin [From CIPRO] Allergy (Severe, Verified 12/19/22 08:44) ANAPHYLAXIS coconut [COCONUT] Allergy (Severe, Verified 12/19/22 08:44) Anaphylaxis fentanyl [FENTANYL] Allergy (Severe, Verified 12/19/22 08:44) ANAPHYLAXIS levofloxacin [From LEVAQUIN] Allergy (Severe, Verified 12/19/22 08:44) Anaphylaxis morphine [MORPHINE] Allergy (Severe, Verified 12/19/22 08:44) ANAPHYLAXIS oxycodone [OXYCODONE] Allergy (Severe, Verified 12/19/22 08:44) ANAPHYLAXIS Narcotics Allergy (Severe, Uncoded 12/19/22 08:44) Anaphylaxis Medication List - Last Reconciled 12/19/22 by Kacey Duke RN atorvastatin 20 mg PO BEDTIME 90 days krill oil mg PO DAILY [L theanine 200 mg PO DAILY] [MULTI VITAMIN 1 tab PO DAILY] [MUSHROOM SUPPLEMENT PO .PRN] [TURMERIC PO .PRN] warfarin (Jantoven) 10 mg See Protocol PO DAILY warfarin 2.5 mg See Protocol PO DAILY Nursing Note Amb to [facility] feeling ok Medications and supplements reviewed No changes in health, diet, medications, or supplements- pt continues on her high protein diet Denies any unusual signs and symptoms of bruising, bleeding Denies any new Chest pain, SOB, or clotting INR:2.2 in therapeutic range Nutritional guidance given: balance greens and reds in diet Dose: continue new dosing; 7.5mg x 1 day and 10mg x 6 days F/U INR: 1 week, booked for a friday as leaving 12/26 Patient verbalizes understanding of instructions given with accurate read back/ teach back of dosing Anti-Coag Initial Assessment Social Hx Patient Tobacco Use Status: Former Tobacco user Tobacco use type: Cigarette alcohol intake: current Alcohol intake frequency: holidays/special occasions only Coding Level of Care Code Est Patient Level 1 Diagnoses Current use of anticoagulant therapy Z79.01 Time Spent (min) 15 Assessment & Plan Assessment & Plan (1) Current use of anticoagulant therapy: 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
== END 2022-12-19 09:25 | disposition home or self-care (01) ==
LOC: HO.ACS 08:36
PROVIDERS: PCP Internal Medicine; Visit Provider Internal Medicine
DX: Z79.01 Long term (current) use of anticoagulants (principal)

== ENCOUNTER → 2022-12-19 08:36 | Outpatient (BNVA) | payer OTHER, SELFPAY | PROVIDERS: PCP Internal Medicine; Visit Provider Internal Medicine | DX: Z51.81 Encounter for therapeutic drug level monitoring (principal); Z79.01 Long term (current) use of anticoagulants; I26.99 Other pulmonary embolism without acute cor pulmonale | CPT/HCPCS: 85610; 99211 ==

== ENCOUNTER 2022-12-25 08:37 | Outpatient (AMB) | payer OTHER, SELFPAY ==
[2022-12-25 08:43] LABS: Prothrombin Time Whole Bld POC 28.3 sec (11.1-13.5); ~PT, ~INR - Anti Coag Clinic 2.4 (0.9-1.1)
--- NOTE | 2022-12-25 08:48 | MHC.OFFVISCO ---
Intake Intake Visit Reasons: Anticoagulation Allergies ciprofloxacin [From CIPRO] Allergy (Severe, Verified 12/25/22 08:38) ANAPHYLAXIS coconut [COCONUT] Allergy (Severe, Verified 12/25/22 08:38) Anaphylaxis fentanyl [FENTANYL] Allergy (Severe, Verified 12/25/22 08:38) ANAPHYLAXIS levofloxacin [From LEVAQUIN] Allergy (Severe, Verified 12/25/22 08:38) Anaphylaxis morphine [MORPHINE] Allergy (Severe, Verified 12/25/22 08:38) ANAPHYLAXIS oxycodone [OXYCODONE] Allergy (Severe, Verified 12/25/22 08:38) ANAPHYLAXIS Narcotics Allergy (Severe, Uncoded 12/19/22 08:44) Anaphylaxis Medication List - Last Reconciled 12/25/22 by Tiffanie Rosario RN atorvastatin 20 mg PO BEDTIME 90 days krill oil mg PO DAILY [L theanine 200 mg PO DAILY] [MULTI VITAMIN 1 tab PO DAILY] [MUSHROOM SUPPLEMENT PO .PRN] [TURMERIC PO .PRN] warfarin (Jantoven) 10 mg See Protocol PO DAILY warfarin 2.5 mg See Protocol PO DAILY Nursing Note NO CP,SOB,DIET/MED CHANGES,FALLS OR SX OF BLEEDING. CONTINUE PRESENT DOSE AND FOLLOW-UP IN 2 WEEKS. GOOD UNDERSTANDING OF DOSING INSTR. 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
== END 2022-12-25 08:50 | disposition home or self-care (01) ==
LOC: HO.ACS 08:37
PROVIDERS: PCP Internal Medicine; Visit Provider Internal Medicine
DX: Z79.01 Long term (current) use of anticoagulants (principal)

== ENCOUNTER → 2022-12-25 08:37 | Outpatient (BNVA) | payer OTHER, SELFPAY | PROVIDERS: PCP Internal Medicine; Visit Provider Internal Medicine | DX: Z51.81 Encounter for therapeutic drug level monitoring (principal); Z79.01 Long term (current) use of anticoagulants; I26.99 Other pulmonary embolism without acute cor pulmonale | CPT/HCPCS: 85610; 99211 ==

== ENCOUNTER 2023-01-06 08:29 | Outpatient (AMB) | payer OTHER, SELFPAY ==
[2023-01-06 09:05] LABS: Prothrombin Time Whole Bld POC 20.6 sec (11.1-13.5); ~PT, ~INR - Anti Coag Clinic 1.7 (0.9-1.1)
--- NOTE | 2023-01-06 09:14 | MHC.OFFVISCO ---
Intake Intake Visit Reasons: Anticoagulation Allergies ciprofloxacin [From CIPRO] Allergy (Severe, Verified 01/06/23 08:54) ANAPHYLAXIS coconut [COCONUT] Allergy (Severe, Verified 01/06/23 08:54) Anaphylaxis fentanyl [FENTANYL] Allergy (Severe, Verified 01/06/23 08:54) ANAPHYLAXIS levofloxacin [From LEVAQUIN] Allergy (Severe, Verified 01/06/23 08:54) Anaphylaxis morphine [MORPHINE] Allergy (Severe, Verified 01/06/23 08:54) ANAPHYLAXIS oxycodone [OXYCODONE] Allergy (Severe, Verified 01/06/23 08:54) ANAPHYLAXIS Narcotics Allergy (Severe, Uncoded 01/06/23 08:54) Anaphylaxis Medication List - Last Reconciled 01/06/23 by Ericka Brady RN atorvastatin 20 mg PO BEDTIME 90 days krill oil mg PO DAILY [L theanine 200 mg PO DAILY] [LIVER HEALTH PO] [MULTI VITAMIN 1 tab PO DAILY] [MUSHROOM SUPPLEMENT PO .PRN] [TURMERIC PO .PRN] warfarin (Jantoven) 10 mg See Protocol PO DAILY warfarin 2.5 mg See Protocol PO DAILY Nursing Note INR: 1.7 OUT OF THERAPEUTIC RANGE Medications and supplements reviewed SHE STATED SHE STARTED ANOTHER SUPPLEMENT LIVER HEALTH CONTAINING SEVERAL INGREDIENTS THAT CAN ALTER THE INR - SOME MAY CANCLE EACH OTHER OUT - HOWEVER IT IS POSSIBLE IT MAY STILL RAISE THE INR - PT ENC TO PROCEED WITH CAUTION ONLY TAKING 1 TAB DAILY INSTEAD OF 2 DUE TO RISK OF BLEEDING Denies any signs and symptoms of bleeding or bruising or clotting. 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
== END 2023-01-06 11:16 | disposition home or self-care (01) ==
LOC: HO.ACS 08:29
PROVIDERS: PCP Internal Medicine; Visit Provider Internal Medicine
DX: Z79.01 Long term (current) use of anticoagulants (principal)

== ENCOUNTER → 2023-01-06 08:29 | Outpatient (BNVA) | payer OTHER, SELFPAY | PROVIDERS: PCP Internal Medicine; Visit Provider Internal Medicine | DX: I26.99 Other pulmonary embolism without acute cor pulmonale (principal); Z51.81 Encounter for therapeutic drug level monitoring; Z79.01 Long term (current) use of anticoagulants | CPT/HCPCS: 85610; 99211 ==

== ENCOUNTER 2023-01-13 08:44 | Outpatient (AMB) | payer OTHER, SELFPAY ==
[2023-01-13 09:43] LABS: Prothrombin Time Whole Bld POC 35.3 sec (11.1-13.5); ~PT, ~INR - Anti Coag Clinic 2.9 (0.9-1.1)
--- NOTE | 2023-01-13 09:45 | MHC.OFFVISCO ---
Intake Intake Visit Reasons: Anticoagulation Allergies ciprofloxacin [From CIPRO] Allergy (Severe, Verified 01/13/23 09:38) ANAPHYLAXIS coconut [COCONUT] Allergy (Severe, Verified 01/13/23 09:38) Anaphylaxis fentanyl [FENTANYL] Allergy (Severe, Verified 01/13/23 09:38) ANAPHYLAXIS levofloxacin [From LEVAQUIN] Allergy (Severe, Verified 01/13/23 09:38) Anaphylaxis morphine [MORPHINE] Allergy (Severe, Verified 01/13/23 09:38) ANAPHYLAXIS oxycodone [OXYCODONE] Allergy (Severe, Verified 01/13/23 09:38) ANAPHYLAXIS Narcotics Allergy (Severe, Uncoded 01/13/23 09:38) Anaphylaxis Medication List - Last Reconciled 01/13/23 by Lakesha Winkler RN atorvastatin 20 mg PO BEDTIME 90 days krill oil mg PO DAILY [L theanine 200 mg PO DAILY] [LIVER HEALTH PO] [MULTI VITAMIN 1 tab PO DAILY] [MUSHROOM SUPPLEMENT PO .PRN] [TURMERIC PO .PRN] warfarin (Jantoven) 10 mg See Protocol PO DAILY warfarin 2.5 mg See Protocol PO DAILY Nursing Note INR: 2.9- in therapeutic range Medications and supplements reviewed- cont on liver health supp, taking tumeric 3x week No changes in health, diet, medications, or supplements, Denies any signs and symptoms of bleeding or bruising or clotting. Bleeding, bruising, clotting discussed Nutritional guidance given Dose: 10mg x 7 F/U INR: 1 week Patient verbalizes understanding of instructions given Anti-Coag Initial Assessment Social Hx Patient Tobacco Use Status: Former Tobacco user Tobacco use type: Cigarette alcohol intake: current Alcohol intake frequency: holidays/special occasions only Coding Level of Care Code Est Patient Level 1 Diagnoses Current use of anticoagulant therapy Z79.01 Assessment & Plan Assessment & Plan (1) Current use of anticoagulant therapy: Code(s): Z79.01 - [facility] (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 Medications: Resumed [TURMERIC] PO .PRN
== END 2023-01-13 09:53 | disposition home or self-care (01) ==
LOC: HO.ACS 08:44
PROVIDERS: PCP Internal Medicine; Visit Provider Internal Medicine
DX: Z79.01 Long term (current) use of anticoagulants (principal)

== ENCOUNTER → 2023-01-13 08:44 | Outpatient (BNVA) | payer OTHER, SELFPAY | PROVIDERS: PCP Internal Medicine; Visit Provider Internal Medicine | DX: I26.99 Other pulmonary embolism without acute cor pulmonale (principal); Z51.81 Encounter for therapeutic drug level monitoring; Z79.01 Long term (current) use of anticoagulants | CPT/HCPCS: 85610; 99211 ==

== ENCOUNTER 2023-01-21 08:41 | Outpatient (AMB) | payer OTHER, SELFPAY ==
--- NOTE | 2023-01-21 08:57 | MHC.OFFVISCO ---
Intake Intake Visit Reasons: Anticoagulation Allergies ciprofloxacin [From CIPRO] Allergy (Severe, Verified 01/21/23 08:49) ANAPHYLAXIS fentanyl [FENTANYL] Allergy (Severe, Verified 01/21/23 08:49) ANAPHYLAXIS levofloxacin [From LEVAQUIN] Allergy (Severe, Verified 01/21/23 08:49) Anaphylaxis morphine [MORPHINE] Allergy (Severe, Verified 01/21/23 08:49) ANAPHYLAXIS oxycodone [OXYCODONE] Allergy (Severe, Verified 01/21/23 08:49) ANAPHYLAXIS Narcotics Allergy (Severe, Uncoded 01/21/23 08:49) Anaphylaxis Medication List - Last Reconciled 01/21/23 by Kacey Duke RN atorvastatin 20 mg PO BEDTIME 90 days krill oil mg PO DAILY [L theanine 200 mg PO DAILY] [LIVER HEALTH PO] [MULTI VITAMIN 1 tab PO DAILY] [MUSHROOM SUPPLEMENT PO .PRN] [TURMERIC PO .PRN] warfarin (Jantoven) 10 mg See Protocol PO DAILY warfarin 2.5 mg See Protocol PO DAILY Nursing Note Amb to [facility] feeling well Medications and supplements reviewed No changes in health, diet, medications, or supplements Denies any unusual signs and symptoms of bruising, bleeding Denies any new Chest pain, SOB, or clotting INR:2.9 in therapeutic range Nutritional guidance given: balance greens and reds in diet, sts she had a lot of raspberries this week but has also been on a high protein diet Dose: continue usual dosing; 10 mg daily F/U INR: 2 weeks, however requested 1 week as she knew her work schedule Patient verbalizes understanding of instructions given with accurate read back/ teach back of dosing Anti-Coag Initial Assessment Social Hx Patient Tobacco Use Status: Former Tobacco user Tobacco use type: Cigarette alcohol intake: current Alcohol intake frequency: holidays/special occasions only Coding Level of Care Code Est Patient Level 1 Diagnoses Current use of anticoagulant therapy Z79.01 Time Spent (min) 15 Assessment & Plan Assessment & Plan (1) Current use of anticoagulant therapy: Code(s): Z79.01 - [facility] (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
[2023-01-21 09:01] LABS: Prothrombin Time Whole Bld POC 33.6 sec (11.1-13.5); ~PT, ~INR - Anti Coag Clinic 2.8 (0.9-1.1)
== END 2023-01-21 11:27 | disposition home or self-care (01) ==
LOC: HO.ACS 08:41
PROVIDERS: PCP Internal Medicine; Visit Provider Internal Medicine
DX: Z79.01 Long term (current) use of anticoagulants (principal)

== ENCOUNTER → 2023-01-21 08:41 | Outpatient (BNVA) | payer OTHER, SELFPAY | PROVIDERS: PCP Internal Medicine; Visit Provider Internal Medicine | DX: I26.99 Other pulmonary embolism without acute cor pulmonale (principal); Z51.81 Encounter for therapeutic drug level monitoring; Z79.01 Long term (current) use of anticoagulants | CPT/HCPCS: 85610; 99211 ==

== ENCOUNTER 2023-01-29 08:35 | Outpatient (AMB) | payer OTHER, SELFPAY ==
--- NOTE | 2023-01-29 08:58 | MHC.OFFVISCO ---
Intake Intake Visit Reasons: Anticoagulation Allergies ciprofloxacin [From CIPRO] Allergy (Severe, Verified 01/29/23 08:54) ANAPHYLAXIS fentanyl [FENTANYL] Allergy (Severe, Verified 01/29/23 08:54) ANAPHYLAXIS levofloxacin [From LEVAQUIN] Allergy (Severe, Verified 01/29/23 08:54) Anaphylaxis morphine [MORPHINE] Allergy (Severe, Verified 01/29/23 08:54) ANAPHYLAXIS oxycodone [OXYCODONE] Allergy (Severe, Verified 01/29/23 08:54) ANAPHYLAXIS Narcotics Allergy (Severe, Uncoded 01/29/23 08:54) Anaphylaxis Medication List - Last Reconciled 01/29/23 by Lakesha Winkler RN atorvastatin 20 mg PO BEDTIME 90 days krill oil mg PO DAILY [L theanine 200 mg PO DAILY] [LIVER HEALTH PO] [MULTI VITAMIN 1 tab PO DAILY] [MUSHROOM SUPPLEMENT PO .PRN] [TURMERIC PO .PRN] warfarin (Jantoven) 10 mg See Protocol PO DAILY warfarin 2.5 mg See Protocol PO DAILY warfarin 2.5 mg PO DAILY Nursing Note INR 1.9-? out of therapeutic range Medications and supplements reviewed Patient status: no c.o, pt states has fatty liver and is taking liver supp with minerva, tumeric, milk thistle and dandelion root and artichoke Medications or supplements: no changes Diet: eating more protein Denies any signs and symptoms of bleeding or clotting or unusual bruising Bleeding, bruising, clotting discussed Nutritional guidance given: no greens for 2 days, eat a red today Dose: 12.5mg today then 10mg x 7 F/U INR Date : 2 weeks Patient verbalizing understanding of instructions given. 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
[2023-01-29 08:59] LABS: Prothrombin Time Whole Bld POC 22.8 sec (11.1-13.5); ~PT, ~INR - Anti Coag Clinic 1.9 (0.9-1.1)
== END 2023-01-29 09:05 | disposition home or self-care (01) ==
LOC: HO.ACS 08:35
PROVIDERS: PCP Internal Medicine; Visit Provider Internal Medicine
DX: Z79.01 Long term (current) use of anticoagulants (principal)

== ENCOUNTER → 2023-01-29 08:35 | Outpatient (BNVA) | payer OTHER, SELFPAY | PROVIDERS: PCP Internal Medicine; Visit Provider Internal Medicine | DX: I26.99 Other pulmonary embolism without acute cor pulmonale (principal); Z51.81 Encounter for therapeutic drug level monitoring; Z79.01 Long term (current) use of anticoagulants | CPT/HCPCS: 85610; 99211 ==

== ENCOUNTER 2023-02-06 10:33 | Outpatient (REF) | payer OTHER, SELFPAY ==
[2023-02-06 11:13] LABS: Alanine Aminotransferase 15 U/L (0-31); Albumin Level 4.2 g/dL (3.5-5.0); Alkaline Phosphatase 82 U/L (39-117); Anion Gap 11 (12-20); Aspartate Amino Transferase 22 U/L (5-31); Bilirubin Total 0.5 mg/dL (0.0-1.0); Blood Urea Nitrogen 11 mg/dL (9-16); Calcium 9.3 mg/dL (8.4-10.2); Carbon Dioxide 24 mmol/L (22-29); Chloride 109 mmol/L (96-108); Estimated Glomerular Filt Rate > 60; Glucose Random 100 mg/dL (60-115); Potassium 4.1 mmol/L (3.3-5.1); Sodium 140 mmol/L (135-145); Total Protein 6.8 g/dL (6.5-8.0)
[2023-02-06 11:23] LABS: Free T4 (Free Thyroxine) 0.91 ng/dL (0.71-1.85); Thyroid Stimulating Hormone 1.64 uIU/mL (0.32-4.0)
[2023-02-08 03:19] LABS: Triiodothyronine T3 Total 110 ng/dL (76-181)
== END 2023-02-06 10:34 | disposition home or self-care (01) ==
LOC: HO.LAB 10:33
PROVIDERS: PCP Internal Medicine; Visit Provider Internal Medicine
DX: R41.89 Other symptoms and signs involving cognitive functions and awareness (principal); R94.6 Abnormal results of thyroid function studies
CPT/HCPCS: 36415; 80053; 84439; 84443; 84480

== ENCOUNTER 2023-02-10 12:10 | Emergency (ER) | payer OTHER, SELFPAY ==
--- NOTE | ~2023-02-10 | XR_ITS ---
EXAMINATION: XR CHEST CLINICAL INFORMATION: Dizziness. COMPARISON: 06/04/2021 TECHNIQUE: 2 views of the chest were obtained. FINDINGS: The lungs are well expanded. No focal consolidation. No pleural effusion. Cardiac silhouette is unchanged. XR/XR chest 2V IMPRESSION: No acute abnormality.
--- NOTE | 2023-02-10 12:15 | ECG_ITS ---
Test Reason : BRADYCARDIA Blood Pressure : / mmHG Vent. Rate : 062 BPM Atrial Rate : 062 BPM P-R Int : 178 ms QRS Dur : 084 ms QT Int : 410 ms P-R-T Axes : 040 008 015 degrees QTc Int : 416 ms Normal sinus rhythm Possible Left atrial enlargement Borderline ECG When compared with ECG of 04-JUN-2021 16:30, No significant change was found Referred By: Generic ED Physician Electronically Signed By:BON NICK
[2023-02-10 12:49] VITALS: BP 126/86; PULSE 71; RESP 18; TEMP 36.6; O2SAT 98; BMI 32.3
--- NOTE | 2023-02-10 12:49 | ED.GENADULT ---
HPI - General Adult General Chief complaint: Dizziness Stated complaint: low pulse Time Seen by Provider: 02/10/23 17:50 Source: patient, RN notes reviewed and old records reviewed Mode of arrival: ambulatory Limitations: no limitations History of Present Illness HPI narrative: 52-year-old female with past medical history significant for fatty liver, IBS, anemia, GERD, rheumatoid arthritis, PE on Coumadin presents for evaluation of ?bradycardia. ? Patient reports for last few months she has had increased weakness dizziness. She states ?my watch tells me that I am bradycardic as low as 42 per minute. ? Patient states that she has not on any blood pressure medications was typically she is not on any beta-quirino She reports that she has been taking herbal supplements for her ?fatty liver. ? She states that she has been fatigued have decreased energy going back at least 4 years She feels that her primary doctor is not helping her Denies any chest pain, headache Related Data Home Medications Medication Instructions Recorded Confirmed MULTI VITAMIN 1 tab PO DAILY 08/24/20 01/21/23 L theanine 200 mg PO DAILY 09/25/22 01/21/23 MUSHROOM SUPPLEMENT PO .PRN 10/17/22 01/21/23 TURMERIC PO .PRN 10/17/22 01/21/23 krill oil 500 mg capsule mg PO DAILY 11/14/22 01/21/23 LIVER HEALTH PO 01/06/23 01/21/23 Previous Rx's Medication Instructions Recorded warfarin 10 mg tablet (Jantoven) 10 mg PO DAILY #90 tabs 11/13/21 atorvastatin 20 mg tablet 20 mg PO BEDTIME 90 days #90 tabs 01/13/23 warfarin 2.5 mg tablet 2.5 mg PO DAILY #90 tabs 01/27/23 Allergies Allergy/AdvReac Type Severity Reaction Status Date / Time ciprofloxacin [From CIPRO] Allergy Severe ANAPHYLAXIS Verified 01/29/23 08:54 fentanyl [FENTANYL] Allergy Severe ANAPHYLAXIS Verified 01/29/23 08:54 levofloxacin [From LEVAQUIN] Allergy Severe Anaphylaxis Verified 01/29/23 08:54 morphine [MORPHINE] Allergy Severe ANAPHYLAXIS Verified 01/29/23 08:54 oxycodone [OXYCODONE] Allergy Severe ANAPHYLAXIS Verified 01/29/23 08:54 Narcotics Allergy Severe Anaphylaxis Uncoded 01/29/23 08:54 Review of Systems Constitutional: Constitutional: Denies chills, Reports fatigue, Denies fever(s), Denies headache(s), Reports lethargy, Reports malaise and Denies weakness Eyes: Eyes: Denies blurry vision ENT: Denies headache(s) Cardiovascular: Cardiovascular: Denies chest pain and Denies dyspnea Comments: Reports slow heart rate Respiratory: Respiratory: Denies cough and Denies dyspnea Gastrointestinal: Gastrointestinal: Denies abdominal pain and Denies vomiting Genitourinary: Genitourinary: Denies difficulty voiding Musculoskeletal: Musculoskeletal: Denies back pain Integumentary/Breasts: Skin/Breast: Denies rash Neurologic: Denies headache(s) and Denies weakness Endocrine: Endocrine: Reports fatigue PMFSH Past Medical History Medical History (Updated 02/10/23 @ 18:24 by Sae Low) Headache Annual physical exam Pulmonary embolus Weight gain Epigastric pain Pure hypercholesterolemia Osteoarthritis of right knee Hypercoagulable state Obesity (BMI 30-39.9) Thrombophlebitis of lower extremities Attention deficit disorder (ADD) Irritable bowel syndrome (IBS) Lyme disease Rheumatoid arthritis Pseudoangiomatous stromal hyperplasia of breast Breast pain Surgical History H/O arthroscopy of right knee (~11/28/17) H/O colonoscopy Status post medial meniscus repair (~11/28/17) Status post laser ablation of incompetent vein (~2005) History of hernia repair (~2014) History of knee replacement (~10/2018) Family History Family History Paternal Uncle Family history of prostate cancer Paternal Aunt History of uterine cancer Other History of lung cancer Social History Social History Household Members: Spouse and Children Housing: House Are you a primary primary care physician to a significant other at home: No Do you presently have visiting nurse or other home services: No Alcohol intake: never Patient Tobacco Use Status: Former Tobacco user Tobacco use type: Cigarette Smoked in Last 30 Days: No e-Cigarette/Vaping Use: Never Used Second Hand Smoke Exposure: No Use of substances other than those prescribed or required for medical reasons: No Advance Directives: No Advance Directives Information Provided: Yes Patient : No service: No Current occupational status: employed Cognitive needs: No Hearing needs: No Vision needs: No Physical Exam ED Vital Signs: Vital Signs - 24 hr 02/10/23 12:49 02/10/23 17:27 Temperature 98 F Pulse Rate 71 60 Respiratory Rate 18 12 Blood Pressure 126/86 142/78 H Pulse Oximetry 98 100 Oxygen Delivery Method Room Air Room Air BMI result Body Mass Index 32.3 Const General: healthy appearing, comfortable, no acute distress, alert and awake Nutritional Appearance: well nourished Orientation/consciousness: patient oriented x3 HENMT Head: Yes normocephalic and Yes atraumatic Eyes Eyelids: Yes eyelids normal Conjunctivae: conjunctivae normal Sclerae: sclerae normal Corneas: corneas normal Pupils: Equal, round and reactive pupils present EOM: EOMs intact bilaterally Neck Neck: Yes full ROM Resp Effort & Inspection: normal respiratory effort, able to speak in complete sentences, no audible wheezes and not labored Auscultation: clear to auscultation bilaterally Cardio Rate: regular rate Rhythm: regular rhythm GI Inspection: No distended Palpation (GI): Soft to palpation, not firm, nontender, no guarding and not rigid Skin General skin exam: no rashes or lesions noted and elasticity normal Neuro General: patient oriented x3 Cranial nerves: Yes Equal, round and reactive pupils present and Yes Bilaterally intact EOM present Cognition (Neuro): normal cognition Extrem Other: Moving all extremities well without any obvious deformities Course Course Course Narrative: RME performed by Zahra Grimes PA-C. Patient is a 52 year old assigned female at presenting to the emergency department with dizziness / feeling drunk and a low pulse. Labs ordered. Patient placed back in the waiting room pending room availability and results. Medical Decision Making Medical Decision Making MDM Narrative: 52-year-old female presents for evaluation of ?bradycardia and dizziness. ? She is not on any beta-blockers or other rate control medications. Her EKG is sinus rhythm with a rate of 62 beats per minute. I saw her as low as 52 on the monitor. However given that she is not hypotensive, she is not on any kind of heart block, that she can be safely discharged to follow-up with her PCP. The remainder of her labs are reassuring Differential Diagnosis Differential Diagnoses: The differential diagnosis associated with the presentation includes Symptomatic bradycardia First-degree heart block Secondary heart block Arrhythmia Anemia Lab Data [facility] Lab Attestation statement: I reviewed the patient's lab results. No leukocytosis, no significant anemia, normal platelet count. No electrolyte abnormalities. Troponin less than 2 points of 02/10/23 14:05 02/10/23 14:05 Labs: Lab Results 02/10/23 02/10/23 Range/Units 14:05 17:33 WBC 7.3 (4.8-10.8) X10*3/uL RBC 4.77 (4.20-5.50) X10*6/uL Hgb 12.9 (12.0-16.0) g/dl Hct 39.7 (37.0-47.0) % MCV 83.2 (80.0-98.0) fL MCH 27.0 (27.0-33.0) pg MCHC 32.5 (31.0-35.0) g/dl RDW 13.7 (11.0-16.0) % Plt Count 287 (160-400) X10*3/uL MPV 9.6 (9.4-12.3) fL Immature Gran % (Auto) 0.4 (0.0-0.4) % Neut % (Auto) 63.4 (45-73) % Lymph % (Auto) 26.5 (20-40) % [place] % (Auto) 7.4 (2-11) % Eos % (Auto) 1.6 (0-4) % Baso % (Auto) 0.7 (0-2) % Lymph # (Auto) 1.9 (1.2-4.9) X10*3/uL [place] # (Auto) 0.5 (0.1-1.2) X10*3/uL Eos # (Auto) 0.1 (0.0-0.4) X10*3/uL Baso # (Auto) 0.1 (0.0-0.2) X10*3/uL Abs Immat Gran (auto) 0.03 (0.00-0.03) X10*3/uL Absolute Neuts (auto) 4.6 (2.0-8.3) x10*3/uL Absolute Nucleated RBC 0.000 (0.0-0.012) X10*3/uL Nucleated RBC % (auto) 0.0 (0.0-0.2) /100WBC PT 32.4 H (11.1-13.3) SEC INR 2.7 H (0.9-1.1) APTT 46.6 H (26.0-36.4) SEC Sodium 141 (135-145) mmol/L Potassium 3.9 (3.3-5.1) mmol/L Chloride 108 (96-108) mmol/L Carbon Dioxide 23 (22-29) mmol/L Anion Gap 14 (12-20) BUN 10 (9-16) mg/dL Creatinine 0.75 (0.5-1.4) mg/dL Estim Creat Clear Calc 99.5 Estimated GFR > 60 Random Glucose 97 (60-115) mg/dL Calcium 9.5 (8.4-10.2) mg/dL Magnesium 2.2 (1.6-2.6) mg/dL Total Bilirubin 0.4 (0.0-1.0) mg/dL AST 24 (5-31) U/L ALT 10 (0-31) U/L Alkaline Phosphatase 84 (39-117) U/L Troponin I High Sens < 2.7 (<3.5-17.0) ng/L Total Protein 6.9 (6.5-8.0) g/dL Albumin 4.3 (3.5-5.0) g/dL TSH 1.26 (0.32-4.0) uIU/mL Urine Color Yellow Urine Appearance Clear Urine pH 5.5 (5.0-9.0) Ur Specific [place] 1.015 (1.005-1.025) Urine Protein Negative (Neg-Trace) mg/dL Urine Glucose (UA) Negative (Negative) mg/dL Urine Ketones Negative (Negative) mg/dL Urine Blood Negative (Negative) Urine Nitrite Negative (Negative) Ur Leukocyte Esterase Negative (Negative) Discharge Plan Discharge Clinical Impression: Bradycardia Patient Disposition: Home, Self-Care Instructions: Bradycardia (ED) Additional Instructions: Your heart rate in the ER was as low as 52 This is a sinus rhythm and there is no evidence of heart block Your blood pressure has been adequate Your blood work was all reassuring Your EKG was a sinus rhythm at 62 beats per minute. You may follow-up with Cardiology given your symptoms Prescriptions: No Action atorvastatin 20 mg tablet 20 mg PO BEDTIME 90 Days Qty: 90 1RF warfarin 2.5 mg Tablet 2.5 mg PO DAILY Qty: 90 3RF Protocol: Dose Management Condition: Friday (Week One) Dose/Route: 10 mg Instruction: 1 x 10 mg tablet Condition: Friday Dose/Route: 10 mg Instruction: 1 x 10 mg tablet Condition: Friday Dose/Route: 10 mg Instruction: 1 x 10 mg tablet Condition: Friday Dose/Route: 12.5 mg Instruction: 1 x 2.5 mg tablet, 1 x 10 mg tablet Condition: Dose/Route: 10 mg Instruction: 1 x 10 mg tablet Condition: Friday Dose/Route: 10 mg Instruction: 1 x 10 mg tablet Condition: Friday Dose/Route: 10 mg Instruction: 1 x 10 mg tablet Condition: Friday ( Two) Dose/Route: 10 mg Instruction: 1 x 10 mg tablet Condition: Friday Dose/Route: 10 mg Instruction: 1 x 10 mg tablet Condition: Friday Dose/Route: 10 mg Instruction: 1 x 10 mg tablet Condition: Friday Dose/Route: 10 mg Instruction: 1 x 10 mg tablet Condition: Dose/Route: 10 mg Instruction: 1 x 10 mg tablet Condition: Friday Dose/Route: 10 mg Instruction: 1 x 10 mg tablet Condition: Friday Dose/Route: 10 mg Instruction: 1 x 10 mg tablet Protocol Text: Adjustment Start Date: Friday01/29/23 INR Value: 1.9 INR Date: 01/29/23 Recheck Date: 02/12/23 Additional Instructions: take 12.5mg today then cont reg dosing no greens for 2 days, eat a red today warfarin [Maytoven] 10 mg Tablet 10 mg PO DAILY Qty: 90 4RF Protocol: Dose Management Condition: Friday (Week One) Dose/Route: 10 mg Instruction: 1 x 10 mg tablet Condition: Friday Dose/Route: 10 mg Instruction: 1 x 10 mg tablet Condition: Friday Dose/Route: 10 mg Instruction: 1 x 10 mg tablet Condition: Friday Dose/Route: 12.5 mg Instruction: 1 x 2.5 mg tablet, 1 x 10 mg tablet Condition: Dose/Route: 10 mg Instruction: 1 x 10 mg tablet Condition: Friday Dose/Route: 10 mg Instruction: 1 x 10 mg tablet Condition: Friday Dose/Route: 10 mg Instruction: 1 x 10 mg tablet Condition: Friday (Week Two) Dose/Route: 10 mg Instruction: 1 x 10 mg tablet Condition: Friday Dose/Route: 10 mg Instruction: 1 x 10 mg tablet Condition: Friday Dose/Route: 10 mg Instruction: 1 x 10 mg tablet Condition: Friday Dose/Route: 10 mg Instruction: 1 x 10 mg tablet Condition: Dose/Route: 10 mg Instruction: 1 x 10 mg tablet Condition: Friday Dose/Route: 10 mg Instruction: 1 x 10 mg tablet Condition: Friday Dose/Route: 10 mg Instruction: 1 x 10 mg tablet Protocol Text: Adjustment Start Date: Friday01/29/23 INR Value: 1.9 INR Date: 01/29/23 Recheck Date: 02/12/23 Additional Instructions: take 12.5mg today then cont reg dosing no greens for 2 days, eat a red today Rx Instructions: Take 10 mg p.o. daily for 6 days a week. Take 7.5 mg p.o. 1 day a week. MULTI VITAMIN 1 tab PO DAILY Hold Instructions: PT NOT TAKING TURMERIC PO .PRN Hold Instructions: IN OTHER SUPPLEMENT MUSHROOM SUPPLEMENT PO .PRN Hold Instructions: PT NOT TAKING L theanine 200 mg PO DAILY Hold Instructions: PT NOT TAKING LIVER HEALTH PO Patient Comments: BEET ROOT, ARTICHOIKE EXTRACT, MILK THISTLE AND TUMERIC, DANDELION ROOT, L CYSTEINE, TUMERIC ROOT , VBEET ROOT, GLYCINE, AD ROOT, ORGANIC ALPHALPHA, BLACK LICORICE ROOT, BIOPRINE, BLACK PEPPER FRUIT EXTRACT krill oil 500 mg capsule PO DAILY Referrals: Hima Vazquez MD [Physician] - (bradycardia) Interventions: ED Discharge Assessment Last Done: 02/10/23 18:31 Discharge Date/Time: 02/10/23 18:34
[2023-02-10 14:09] LABS: MANUAL DIFF FLAG NO
[2023-02-10 14:14] LABS: Basophils Absolute Auto 0.1 X10*3/uL (0.0-0.2); Basophils Percent Auto 0.7 % (0-2); Eosinophils Absolute Auto 0.1 X10*3/uL (0.0-0.4); Eosinophils Percent Auto 1.6 % (0-4); Hematocrit 39.7 % (37.0-47.0); Hemoglobin 12.9 g/dl (12.0-16.0); Imm Gran Abs Auto 0.03 X10*3/uL (0.00-0.03); Imm Gran Pct Auto 0.4 % (0.0-0.4); Lymphocytes Absolute Auto 1.9 X10*3/uL (1.2-4.9); Lymphocytes Percent Auto 26.5 % (20-40); Mean Corpuscular HGB Conc 32.5 g/dl (31.0-35.0); Mean Corpuscular Volume 83.2 fL (80.0-98.0); Mean Platelet Volume 9.6 fL (9.4-12.3); Monocytes Absolute Auto 0.5 X10*3/uL (0.1-1.2); Monocytes Percent Auto 7.4 % (2-11); Neutrophils Absolute Auto 4.6 x10*3/uL (2.0-8.3); Neutrophils Percent Auto 63.4 % (45-73); Platelet Count 287 X10*3/uL (160-400); Red Blood Count 4.77 X10*6/uL (4.20-5.50); Red Cell Distribution Width 13.7 % (11.0-16.0); White Blood Count 7.3 X10*3/uL (4.8-10.8)
[2023-02-10 14:22] LABS: INTERNATIONAL NORM RATIO 2.7 (0.9-1.1); Prothrombin Time 32.4 SEC (11.1-13.3)
[2023-02-10 14:25] LABS: Partial Thromboplastin Time 46.6 SEC (26.0-36.4)
[2023-02-10 14:34] LABS: Alanine Aminotransferase 10 U/L (0-31); Albumin Level 4.3 g/dL (3.5-5.0); Alkaline Phosphatase 84 U/L (39-117); Anion Gap 14 (12-20); Aspartate Amino Transferase 24 U/L (5-31); Bilirubin Total 0.4 mg/dL (0.0-1.0); Blood Urea Nitrogen 10 mg/dL (9-16); Calcium 9.5 mg/dL (8.4-10.2); Carbon Dioxide 23 mmol/L (22-29); Chloride 108 mmol/L (96-108); Creatinine Clr Calc Pharmacy 99.5; Estimated Glomerular Filt Rate > 60; Glucose Random 97 mg/dL (60-115); Magnesium 2.2 mg/dL (1.6-2.6); Potassium 3.9 mmol/L (3.3-5.1); Sodium 141 mmol/L (135-145); Total Protein 6.9 g/dL (6.5-8.0)
[2023-02-10 14:37] LABS: Troponin-I High Sensitivity < 2.7 ng/L (<3.5-17.0)
[2023-02-10 14:49] LABS: TSH reflex Free T4 1.26 uIU/mL (0.32-4.0)
[2023-02-10 17:27] VITALS: BP 142/78; PULSE 60; RESP 12; O2SAT 100
[2023-02-10 17:39] LABS: Appearance Urine Clear; Color Urine Yellow; Glucose Urine UA Negative (Negative); Leukocyte Esterase Urine Negative (Negative); Nitrite Urine Negative (Negative); PH 5.5 (5.0-9.0); Specific Gravity - Urine 1.015 (1.005-1.025); Urine Blood Negative (Negative); Urine Ketones Negative (Negative); Urine Protein Negative (Neg-Trace)
--- NOTE | 2023-02-10 17:42 | PC.NURSE ---
pt a&ox3, vss, nsr/sinus ladi on the manager cardiac. pt comes in today d/t being bradycardic/dizzy/weak/lightheaded for the past 2 months. pt states that she feels like she has felt this way for about a year but didn't realize until she started wearing her watch to work when she realized that at the times she felt dizzy her heart rate drops on the watch. pt verbalizes that her friends notice an unsteady gait while she is ambulating at work. pt denies use of assistive devices. pt denies n/v/d lately. pt worried that she has a thyroid issue and would like to get those level checked. pt resting comfortably in no apparent distress. respirations even and unlabored.call baez placed within reach.
== END 2023-02-10 18:34 | disposition home or self-care (01) ==
PROVIDERS: Physician Assistant Medical; Emergency Provider Internal Medicine; PCP Internal Medicine
DX: R00.1 Bradycardia, unspecified (principal); E78.00 Pure hypercholesterolemia, unspecified; Z86.711 Personal history of pulmonary embolism; Z86.718 Personal history of other venous thrombosis and embolism; Z87.891 Personal history of nicotine dependence; Z79.01 Long term (current) use of anticoagulants
CPT/HCPCS: 36415; 71046; 80053; 81003; 83735; 84443; 84484; 85025; 85610; 85730; 93005; 99283; 99284

== ENCOUNTER 2023-02-13 08:13 | Outpatient (AMB) | payer OTHER, SELFPAY ==
[2023-02-13 08:34] LABS: Prothrombin Time Whole Bld POC 23.5 sec (11.1-13.5)
--- NOTE | 2023-02-13 08:42 | MHC.OFFVISCO ---
Intake Intake Visit Reasons: Anticoagulation Allergies ciprofloxacin [From CIPRO] Allergy (Severe, Verified 02/13/23 08:25) ANAPHYLAXIS fentanyl [FENTANYL] Allergy (Severe, Verified 02/13/23 08:25) ANAPHYLAXIS levofloxacin [From LEVAQUIN] Allergy (Severe, Verified 02/13/23 08:25) Anaphylaxis morphine [MORPHINE] Allergy (Severe, Verified 02/13/23 08:25) ANAPHYLAXIS oxycodone [OXYCODONE] Allergy (Severe, Verified 02/13/23 08:25) ANAPHYLAXIS Narcotics Allergy (Severe, Uncoded 02/13/23 08:25) Anaphylaxis Medication List - Last Reconciled 02/13/23 by Kacey Duke RN atorvastatin 20 mg PO BEDTIME 90 days krill oil mg PO DAILY [L theanine 200 mg PO DAILY] [LIVER HEALTH PO] [MULTI VITAMIN 1 tab PO DAILY] [MUSHROOM SUPPLEMENT PO .PRN] [TURMERIC PO .PRN] warfarin (Jantoven) 10 mg See Protocol PO DAILY warfarin 2.5 mg See Protocol PO DAILY Nursing Note Amb to [facility] feeling exhausted sts she has not felt well for a while, brain fog, tired sts went to the ED on Friday for symptomatic bradycardia pt relates to being very concerned over her symptoms, thyroid concerns, and no answers 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 and 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 for 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 thyroid concerns Medications and supplements reviewed-sts off most of the supplements at present No changes in health, diet, medications, or supplements, continues on a high protein diet for weight loss, sts down about 20lbs Denies any unusual signs and symptoms of bruising, bleeding Denies any new Chest pain, SOB, or clotting INR: 2.0 just in therapeutic range, sts it was 2.9 Saturday 02/10 in ED Nutritional guidance given: no greens next 2 days, reds to help raise, then balance greens and reds in diet Dose: continue usual dosing;10mg daily (may need weekly dosing adjustment if continued low or below range) F/U INR: 2 weeks Patient verbalizes understanding of instructions given with accurate read back/ teach back of dosing Anti-Coag Initial Assessment Social Hx Patient Tobacco Use Status: Former Tobacco user Tobacco use type: Cigarette alcohol intake: never Alcohol intake frequency: holidays/special occasions only Coding Level of Care Code Est Patient Level 1 Diagnoses Current use of anticoagulant therapy Z79.01 Time Spent (min) 15 Assessment & Plan Assessment & Plan (1) Current use of anticoagulant therapy: Code(s): Z79.01 - nursing 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
== END 2023-02-13 08:50 | disposition home or self-care (01) ==
LOC: HO.ACS 08:13
PROVIDERS: PCP Internal Medicine; Visit Provider Internal Medicine
DX: Z79.01 Long term (current) use of anticoagulants (principal)

== ENCOUNTER → 2023-02-13 08:13 | Outpatient (BNVA) | payer OTHER, SELFPAY | PROVIDERS: PCP Internal Medicine; Visit Provider Internal Medicine | DX: I26.99 Other pulmonary embolism without acute cor pulmonale (principal); Z51.81 Encounter for therapeutic drug level monitoring; Z79.01 Long term (current) use of anticoagulants | CPT/HCPCS: 85610; 99211 ==

== ENCOUNTER 2023-02-21 12:34 | Outpatient (AMB) | payer OTHER, SELFPAY ==
--- NOTE | 2023-02-21 12:47 | MHC.OFFVIS ---
Intake Vital Signs 02/21/23 12:48 Height 5 ft 6 in Weight 196 lb 3.382 oz BMI 31.7 BP 114/70 Blood Pressure Location Lt brachial Position Sitting Pulse 70 Intake Visit Reasons: New patient was in [facility] ed ? need Intake Note: New patient was in [facility] ED was told to have stress and holter c/o dizziness and chest pain Store Standards Associate Required: No Allergies ciprofloxacin [From CIPRO] Allergy (Severe, Verified 02/13/23 08:25) ANAPHYLAXIS fentanyl [FENTANYL] Allergy (Severe, Verified 02/13/23 08:25) ANAPHYLAXIS levofloxacin [From LEVAQUIN] Allergy (Severe, Verified 02/13/23 08:25) Anaphylaxis morphine [MORPHINE] Allergy (Severe, Verified 02/13/23 08:25) ANAPHYLAXIS oxycodone [OXYCODONE] Allergy (Severe, Verified 02/13/23 08:25) ANAPHYLAXIS Narcotics Allergy (Severe, Uncoded 02/13/23 08:25) Anaphylaxis Medication List - Last Reconciled 02/21/23 by Kiara Diaz NP atorvastatin 20 mg PO BEDTIME 90 days krill oil mg PO DAILY [LIVER HEALTH PO] [TURMERIC PO .PRN] warfarin (Jantoven) 10 mg See Protocol PO DAILY warfarin 2.5 mg See Protocol PO DAILY HPI HPI Comments History of Present Illness Details 52-year-old female presents today for a [facility] follow-up for bradycardia. 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 She states she has episodes of bradycardia with blurry vision that have been occurring for the last year. She reports as low as 42 bpm on her watch but when she has these episodes but usually high 40s-50s and feels as if she will faint but hasnt and feeling fatigued. This has been ongoing for about 1 year. She reports her mother has a history of CT and TIAs, her father has HLD and a mitral valve replacement, and her sister has Sick sinus syndrome. She does report she has been using diet supplements to assist with weight loss along with decreased carb intake but has since stopped the diet supplements with a little impovement in symptoms but she only recently stopped. [facility] Medical History Headache Annual physical exam Pulmonary embolus Weight gain Epigastric pain Pure hypercholesterolemia Osteoarthritis of right knee Hypercoagulable state Obesity (BMI 30-39.9) Thrombophlebitis of lower extremities Attention deficit disorder (ADD) Irritable bowel syndrome (IBS) Lyme disease Rheumatoid arthritis Pseudoangiomatous stromal hyperplasia of breast Breast pain Surgical History H/O arthroscopy of right knee (~11/28/17) H/O colonoscopy Status post medial meniscus repair (~11/28/17) Status post laser ablation of incompetent vein (~2005) History of hernia repair (~2014) History of knee replacement (~10/2018) Family History Paternal Uncle Family history of prostate cancer Paternal Aunt History of uterine cancer Mother Heart attack TIA (transient ischemic attack) Father Hyperlipidemia FH: mitral valve repair Sister Sick sinus syndrome Other History of lung cancer Social History Household Members: Spouse and Children Housing: House Are you a primary home care aide to a significant other at home: No Do you presently have visiting nurse or other home services: No Alcohol intake: never Patient Tobacco Use Status: Former Tobacco user Tobacco use type: Cigarette e-Cigarette/Vaping Use: Never Used Second Hand Smoke Exposure: No service: No Current occupational status: employed Cognitive needs: No Hearing needs: No Vision needs: No Review of Systems Const Denies chills, Denies daytime sleepiness, Denies fatigue, Denies fever(s), Denies frequent falls, Denies poor appetite, Denies snoring, Denies stops breathing during sleep, Denies weakness, Denies weight gain and Denies weight loss Eyes Denies loss of vision ENT Denies dizziness and Denies hearing loss Card Denies chest pain, Denies claudication, Denies leg edema, Denies lightheadedness, Denies palpitations, Denies dyspnea, Denies dyspnea on exertion and Denies orthopnea Resp Denies cough, Denies excessive phlegm production, Denies dyspnea, Denies dyspnea on exertion, Denies snoring and Denies wheezing GI Denies abdominal pain, Denies hematochezia, Denies change in bowel habits, Denies nausea and Denies vomiting Denies urinary frequency and Denies dysuria Musc Denies arthralgias, Denies muscle weakness, Denies numbness and Denies other (frequent falls) Skin/Breast Denies nail changes and Denies rash Neuro Denies Abnormal speech present, Denies dizziness, Denies frequent falls, Denies loss of vision, Denies memory loss, Denies numbness and Denies weakness Psych Denies depression and Denies memory loss Endo Denies fatigue and Denies palpitations Brenton/Lymph Reports easy bruising and Reports other (anemia) Aller/Immun Denies wheezing Physical Exam Vital Signs: Last Vital Signs Pulse 70 02/21/23 12:48 BP 114/70 02/21/23 12:48 BMI result Body Mass Index 31.7 Const General: healthy appearing and no acute distress Orientation/consciousness: patient oriented x3 HEENT Head: Yes normal to inspection Eyes General: appearance normal, both eyes and all related structures Neck Neck: Yes normal visual inspection Chest Chest palpation & inspection: normal inspection of the chest Resp Effort & Inspection: normal respiratory effort Auscultation: clear to auscultation bilaterally Cardio Jugular venous distension: no JVD Palpation: normal PMI Rate: regular rate Rhythm: regular rhythm Heart sounds: S1 normal heart sound present, S2 normal heart sound present, no click, no gallops, no murmurs and no rubs GI Inspection: Yes normal to inspection Palpation (GI): Soft to palpation Skin General skin exam: no rashes or lesions noted Neuro General: patient oriented x3 Speech: No Abnormal speech present Extrem General: Yes normal to inspection Psych Appearance: grossly normal Assessment & Plan Assessment & Plan (1) Bradycardia: Code(s): R00.1 - Bradycardia, unspecified Plan Will order heart monitor to assess for arrhythmias, echocardiogram to assess for structural issues, and a ETT to assess chronotropic competence. If any syncope to occur seek ED care. Will have her return in 6 months to meet with Dr. Vazquez or sooner if needed. Orders: Orders CA stress test Today R00.1 - Bradycardia, unspecified CA echo transthoracic complete Today R00.1 - Bradycardia, unspecified ECG 3 day holter monitor Today R00.1 - Bradycardia, unspecified Coding Level of Care Code Est Pt Level 3 (43382) Diagnoses Bradycardia R00.1
[2023-02-21 12:48] VITALS: BP 114/70; PULSE 70; BMI 31.7
== END 2023-02-21 13:23 | disposition home or self-care (01) ==
PROVIDERS: PCP Internal Medicine; Visit Provider Nurse Practitioner
DX: R00.1 Bradycardia, unspecified (principal)
CPT/HCPCS: 99213

== ENCOUNTER → 2023-02-21 12:34 | Outpatient (BNVA) | payer OTHER, SELFPAY | PROVIDERS: PCP Internal Medicine; Visit Provider Nurse Practitioner ==

== ENCOUNTER 2023-02-26 08:13 | Outpatient (AMB) | payer OTHER, SELFPAY ==
--- NOTE | 2023-02-26 08:36 | MHC.OFFVISCO ---
Intake Intake Visit Reasons: Anticoagulation Allergies ciprofloxacin [From CIPRO] Allergy (Severe, Verified 02/26/23 08:20) ANAPHYLAXIS fentanyl [FENTANYL] Allergy (Severe, Verified 02/26/23 08:20) ANAPHYLAXIS levofloxacin [From LEVAQUIN] Allergy (Severe, Verified 02/26/23 08:20) Anaphylaxis morphine [MORPHINE] Allergy (Severe, Verified 02/26/23 08:20) ANAPHYLAXIS oxycodone [OXYCODONE] Allergy (Severe, Verified 02/26/23 08:20) ANAPHYLAXIS Narcotics Allergy (Severe, Uncoded 02/26/23 08:20) Anaphylaxis Medication List - Last Reconciled 02/26/23 by Ericka Brady RN atorvastatin 20 mg PO BEDTIME 90 days krill oil mg PO DAILY [LIVER HEALTH PO] [TURMERIC PO .PRN] warfarin (Jantoven) 10 mg See Protocol PO DAILY warfarin 2.5 mg See Protocol PO DAILY Nursing Note INR: 2.2 in therapeutic range Medications and supplements reviewed Pt recovering from a cold s/p about 5 days mostly URI with cough, denies covid , states her bradycardia is better, still tiered, took tylenol x 1 day last week for headache stated that she stopped the high protein low carb diet, eating as usual, Denies any signs and symptoms of bleeding or bruising or clotting. Bleeding, bruising, clotting discussed Nutritional guidance given - eat a balanced diet, orange and reds onions and garlic can help raise the INR Dose: keep same for now 10mg daily f/u 2 weeks if still low then increase dose , states she may try a cabbage soup diet few days / week - she was strongly enc to add vegetables to offset the cabbage,she verbalized the vegetables she would use. F/U INR: 03/10/23 same day as PCP f/u appt Patient verbalizes understanding of instructions given Anti-Coag Initial Assessment Social Hx Patient Tobacco Use Status: Former Tobacco user Tobacco use type: Cigarette alcohol intake: never Alcohol intake frequency: holidays/special occasions only Coding Level of Care Code Est Patient Level 1 Diagnoses Current use of anticoagulant therapy Z79.01 Assessment & Plan Assessment & Plan (1) Current use of anticoagulant therapy: Code(s): Z79.01 - longterm (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 Medications: New [mushroom supplement] PO
== END 2023-02-26 08:43 | disposition home or self-care (01) ==
LOC: HO.ACS 08:13
PROVIDERS: PCP Internal Medicine; Visit Provider Internal Medicine
DX: Z79.01 Long term (current) use of anticoagulants (principal)

== ENCOUNTER → 2023-02-26 08:13 | Outpatient (BNVA) | payer OTHER, SELFPAY | PROVIDERS: PCP Internal Medicine; Visit Provider Internal Medicine | DX: I26.99 Other pulmonary embolism without acute cor pulmonale (principal); Z51.81 Encounter for therapeutic drug level monitoring; Z79.01 Long term (current) use of anticoagulants | CPT/HCPCS: 85610; 99211 ==

== ENCOUNTER 2023-03-10 08:52 | Outpatient (AMB) | payer OTHER, SELFPAY ==
[2023-03-10 09:27] LABS: Prothrombin Time Whole Bld POC 20.3 sec (11.1-13.5); ~PT, ~INR - Anti Coag Clinic 1.7 (0.9-1.1)
--- NOTE | 2023-03-10 09:36 | MHC.OFFVISCO ---
Intake Intake Visit Reasons: Anticoagulation Allergies ciprofloxacin [From CIPRO] Allergy (Severe, Verified 03/10/23 09:21) ANAPHYLAXIS fentanyl [FENTANYL] Allergy (Severe, Verified 03/10/23 09:21) ANAPHYLAXIS levofloxacin [From LEVAQUIN] Allergy (Severe, Verified 03/10/23 09:21) Anaphylaxis morphine [MORPHINE] Allergy (Severe, Verified 03/10/23 09:21) ANAPHYLAXIS oxycodone [OXYCODONE] Allergy (Severe, Verified 03/10/23 09:21) ANAPHYLAXIS Narcotics Allergy (Severe, Uncoded 03/10/23 09:21) Anaphylaxis Medication List - Last Reconciled 03/10/23 by Ericka Brady RN atorvastatin 20 mg PO BEDTIME 90 days krill oil mg PO DAILY [LIVER HEALTH PO] [mushroom supplement PO] [TURMERIC PO .PRN] warfarin 10 mg PO DAILY warfarin 2.5 mg See Protocol PO DAILY Nursing Note INR: 1.7 OUT OF therapeutic range Medications and supplements reviewed pt eating a cabbage soup diet daily to help loose weight Denies any signs and symptoms of bleeding or bruising or clotting. Bleeding, bruising, clotting discussed Nutritional guidance given - eat more orange and reds to offset the cabbage Dose: she stated she took 15mg yesterday due to the soup it was explained it needs a few more days to have an effect, then dose 12.5mg x 2 days/ 10mg x 5 days F/U INR: 1 week due to the drop Patient verbalizes understanding of instructions given Anti-Coag Initial Assessment Social Hx Patient Tobacco Use Status: Former Tobacco user Tobacco use type: Cigarette alcohol intake: never Alcohol intake frequency: holidays/special occasions only Coding Level of Care Code Est Patient Level 1 Diagnoses Current use of anticoagulant therapy Z79.01 Assessment & Plan Assessment & Plan (1) Current use of anticoagulant therapy: Code(s): Z79.01 - residential (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
== END 2023-03-10 09:39 | disposition home or self-care (01) ==
LOC: HO.ACS 08:52
PROVIDERS: PCP Internal Medicine; Visit Provider Internal Medicine
DX: Z79.01 Long term (current) use of anticoagulants (principal)

== ENCOUNTER → 2023-03-10 08:52 | Outpatient (BNVA) | payer OTHER, SELFPAY | PROVIDERS: PCP Internal Medicine; Visit Provider Internal Medicine | DX: I26.99 Other pulmonary embolism without acute cor pulmonale (principal); Z51.81 Encounter for therapeutic drug level monitoring; Z79.01 Long term (current) use of anticoagulants | CPT/HCPCS: 85610; 99211 ==

== ENCOUNTER 2023-03-18 07:58 | Outpatient (AMB) | payer OTHER, SELFPAY ==
[2023-03-18 08:30] LABS: Prothrombin Time Whole Bld POC 33.4 sec (11.1-13.5); ~PT, ~INR - Anti Coag Clinic 2.8 (0.9-1.1)
--- NOTE | 2023-03-18 08:32 | MHC.OFFVISCO ---
Intake Intake Visit Reasons: Anticoagulation Allergies ciprofloxacin [From CIPRO] Allergy (Severe, Verified 03/18/23 08:23) ANAPHYLAXIS fentanyl [FENTANYL] Allergy (Severe, Verified 03/18/23 08:23) ANAPHYLAXIS levofloxacin [From LEVAQUIN] Allergy (Severe, Verified 03/18/23 08:23) Anaphylaxis morphine [MORPHINE] Allergy (Severe, Verified 03/18/23 08:23) ANAPHYLAXIS oxycodone [OXYCODONE] Allergy (Severe, Verified 03/18/23 08:23) ANAPHYLAXIS Narcotics Allergy (Severe, Uncoded 03/18/23 08:23) Anaphylaxis Medication List - Last Reconciled 03/18/23 by Ericka Brady RN atorvastatin 20 mg PO BEDTIME 90 days krill oil mg PO DAILY [LIVER HEALTH PO] [mushroom supplement PO] [TURMERIC PO .PRN] warfarin 10 mg See Protocol PO DAILY warfarin 2.5 mg See Protocol PO DAILY Nursing Note INR: 2.8 in therapeutic range Medications and supplements reviewed PT STOPPED CABBAGE SOUP DIET, STARTED HERBAL LIFE MULTIVITAMIN Denies any signs and symptoms of bleeding or bruising or clotting. Bleeding, bruising, clotting discussed Nutritional guidance given Dose: 12.5MG X 1 DAY/ 10MG X 6 DAYS F/U INR: 2 WEEKS Patient verbalizes understanding of instructions given Anti-Coag Initial Assessment Social Hx Patient Tobacco Use Status: Former Tobacco user Tobacco use type: Cigarette alcohol intake: never Alcohol intake frequency: holidays/special occasions only Coding Level of Care Code Est Patient Level 1 Diagnoses Current use of anticoagulant therapy Z79.01 Assessment & Plan Assessment & Plan (1) Current use of anticoagulant therapy: Code(s): Z79.01 - convex grinder (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 Medications: New [herbal life multivitamin] PO
== END 2023-03-18 08:36 | disposition home or self-care (01) ==
LOC: HO.ACS 07:58
PROVIDERS: PCP Internal Medicine; Visit Provider Internal Medicine
DX: Z79.01 Long term (current) use of anticoagulants (principal)

== ENCOUNTER → 2023-03-18 07:58 | Outpatient (BNVA) | payer OTHER, SELFPAY | PROVIDERS: PCP Internal Medicine; Visit Provider Internal Medicine | DX: I26.99 Other pulmonary embolism without acute cor pulmonale (principal); Z51.81 Encounter for therapeutic drug level monitoring; Z79.01 Long term (current) use of anticoagulants | CPT/HCPCS: 85610; 99211 ==

== ENCOUNTER → 2023-03-27 07:39 | Outpatient (REF) | payer OTHER, SELFPAY ==
--- NOTE | 2023-03-27 08:10 | CA_ITS ---
Transthoracic Echocardiogram Patient (Last, First, Middle): Ravinder Vera J Gender: Female Date of : 1970 Age: 52 Procedure Date: 03/27/2023 Procedure Type: Transthoracic Echocardiogram Location: OP Height: 170.18 cm Weight: 85.73 kg BSA: 1.97 m2 Heart Rate: bpm BP: 112 / 68 mmHg Franchise Consultant: TO Referring MD: Kiara Diaz THEATRE DIRECTOR Radar Air Traffic Controller: Hima Vazquez MD Symptoms: R00.1 - Bradycardia, unspecified Study Quality: Adequate with contrast ECG Rhythm: Sinus Conclusions: - 1. Mildly reduced LV ejection fraction of 45-50% with grade 1 diastolic dysfunction 2. Mild aortic and mitral regurgitation 3. Upper limits of normal ascending aortic size 4. Normal RV systolic pressure 5. No pericardial effusion Findings Procedure Information Contrast agent, definity, is being given per protocol without apparent complications. Left Ventricle Normal left ventricular cavity size. There is normal left ventricular wall thickness. The left ventricular systolic function is mildly decreased. The visually estimated ejection fraction is between 45-50%. Spectral Doppler is indicative of an impaired relaxation filling pattern. E/E prime ratio is <8, consistent with normal filling pressures. Evidence suggests grade I (mild) diastolic dysfunction. Right Ventricle Normal right ventricular cavity size and systolic function. Atria The left atrium is mildly dilated. There is no evidence of interatrial shunt. The right atrium is normal in size. Aortic Valve Normal aortic valve structure and function. There is no aortic valve stenosis. There is mild aortic valve regurgitation. Mitral Valve There is mild anterior and posterior mitral leaflet thickening. There is mild mitral valve regurgitation. There is no mitral valve stenosis. Pulmonic Valve The pulmonic valve is likely normal. There is trace pulmonic valve regurgitation. Tricuspid Valve Normal tricuspid valve structure. There is mild tricuspid valve regurgitation. The right ventricular systolic pressure is normal. The right ventricular systolic pressure is 32 mmHg. Normal right atrial pressure. There is no evidence of pulmonary hypertension. Great Vessels The pulmonary artery was not well visualized. Venous The inferior vena cava is normal in size and collapses greater than 50% with inspiration. Pericardium/Pleural There is a trivial loculated pericardial effusion overlying the left ventricle. Prior Study Comparison No prior study available for comparison. Measurements 2D Linear Measurements IVSd: 0.78 0.6-0.9/0.6-1.0 cm LVIDd: 5.31 3.9-5.3/4.2-5.9 cm LVIDd Index: 2.70 2.4-3.2/2.2-3.1 cm/m2 LVIDs: 4.01 2.0-3.6 cm LVPWd: 0.78 0.7-1.1 cm LA Diam: 3.50 2.7-3.8/3.0-4.0 cm LAIDs Index: 1.78 1.5-2.3 cm/m2 LV Mass: 181.65 67-162/88-224 g LV Mass Index: 92.21 43-95/49-115 g/m2 LVOT Diam: 2.10 3.0+(-)1.3 cm 2D Systolic Function EF 4C: 49.50 >55% EF 2C: 50.30 >55% EF BiP: 46.20 >55% Mitral Valve MV Pk E: 0.68 MV PK A: 0.66 MV Decel Time: 194.00 E/A: 1.00 E'Lateral: 10.60 E'Medial: 6.31 E/E' Med: 10.80 E/E' Lat: 6.40 PHT: 57.00 MVA PHT: 3.86 Decel [place]: 3.52 Aortic Valve AoV Pk Gino: 1.46 AoV Mn Gino: 1.01 AoV VTI: 0.36 AoV Pk Grad: 9.00 Aov Mn Grad: 4.00 IFEOMA Cont.VTI: 1.91 AI Pk Gino: 3.84 AI [place]: 1.89 LVOT LVOT Pk Gino: 0.80 LVOT Mn Gino: 0.58 LVOT VTI: 0.20 LVOT Pk Grad: 3.00 LVOT Mn Grad: 1.00 LVOT Diam: 2.10 LVOT Area: 3.46 Diastolic Function MV Pk E: 0.68 MV Pk A: 0.66 E/A: 1.00 E'Medial: 6.31 E/E' Med: 10.80 E' Laterial: 10.60 E/E' Lat: 6.40 Right Ventricle TAPSE (mm): 30.00 TVS' Gino: 12.10 Tricuspid Valve TR Pk Gino: 2.43 TR Pk Grad: 24.00 RA Press: 8.00 RVSP: 32.00 Great Vessels Aorta Sinus of Valsalva: 2.99 2.0-3.5 cm Ao Asc: 3.50 2.1-3.4 cm Updated in Other Vendor System with Status of Final Hima Vazquez MD electronically signed on 03/28/2023 1:38:19 PM with status of Final
--- NOTE | 2023-03-27 10:34 | HM_ITS ---
* Total monitoring time about 3 days. * Underlying rhythm is sinus with an average rate of 68/Min. Range 42-131/Min. * Rare supraventricular ectopy with some brief runs. Longest 18 beats. Cannot exclude atrial fibrillation. * Very rare ventricular ectopy. * No significant pauses or AV blocks. * No patient markers or events in diary. MTDD
--- NOTE | 2023-03-27 11:13 | CA_ITS ---
Acquisition Time: 2023-03-27 09:16:22 Total Exercise Time: 00:08:13 Test Indications: Abnormal ECG BRADYCARDIA Medications: ATORVASTATIN WRFARIN Protocol: FRANCY Max HR: 144 BPM 85% of Pred: 168 BPM Max BP: 132/080 mmHG Max Work Load: 10.1 METS Exercise stress test exercise 8 min 13 sec of Francy protocol achieving 85% MPHR, without anginal symptoms, without arrhythmias, with normotensive and normal chronotropic response, without EKG chnages. Test reviewed with Dr. dudley Referred By: Kiara Diaz Overread By: Kiara Diaz
== END ==
LOC: HO.CARD 07:39
PROVIDERS: PCP Internal Medicine; Visit Provider Nurse Practitioner
DX: R00.1 Bradycardia, unspecified (principal)
CPT/HCPCS: 93017; 93242; 93306; Q9957

== ENCOUNTER → 2023-03-27 11:13 | Outpatient (BNV) | payer OTHER, SELFPAY | PROVIDERS: PCP Internal Medicine; Visit Provider Nurse Practitioner | DX: I47.10 Supraventricular tachycardia, unspecified (principal) | CPT/HCPCS: 93016; 93018; 93244; 93306 ==

== ENCOUNTER 2023-04-02 08:05 | Outpatient (AMB) | payer OTHER, SELFPAY ==
--- NOTE | 2023-04-02 08:40 | MHC.OFFVISCO ---
Intake Intake Visit Reasons: Anticoagulation Allergies ciprofloxacin [From CIPRO] Allergy (Severe, Verified 04/02/23 08:32) ANAPHYLAXIS fentanyl [FENTANYL] Allergy (Severe, Verified 04/02/23 08:32) ANAPHYLAXIS levofloxacin [From LEVAQUIN] Allergy (Severe, Verified 04/02/23 08:32) Anaphylaxis morphine [MORPHINE] Allergy (Severe, Verified 04/02/23 08:32) ANAPHYLAXIS oxycodone [OXYCODONE] Allergy (Severe, Verified 04/02/23 08:32) ANAPHYLAXIS Narcotics Allergy (Severe, Uncoded 04/02/23 08:32) Anaphylaxis Medication List - Last Reconciled 04/02/23 by Lakesha Winkler RN atorvastatin 20 mg PO BEDTIME 90 days [herbal life multivitamin PO] krill oil mg PO DAILY [LIVER HEALTH PO] [mushroom supplement PO] [TURMERIC PO .PRN] warfarin 10 mg See Protocol PO DAILY warfarin 2.5 mg See Protocol PO DAILY Nursing Note INR: 3.0- in therapeutic range 2-3 Medications and supplements reviewed- no changes No changes in health, diet, medications, or supplements, Denies any signs and symptoms of bleeding or bruising or clotting. Bleeding, bruising, clotting discussed Nutritional guidance given - eat a green today Dose: 10mg x 6, 12.5mg x 1 F/U INR: 2 weeks Patient verbalizes understanding of instructions given Anti-Coag Initial Assessment Social Hx Patient Tobacco Use Status: Former Tobacco user Tobacco use type: Cigarette alcohol intake: never Alcohol intake frequency: holidays/special occasions only Coding Level of Care Code Est Patient Level 1 Diagnoses Current use of anticoagulant therapy Z79.01 Results AMB INR Fingerstick AMB INR Fingerstick 3.0 Last Edit by Lakesha Winkler RN on 04/02/23 08:42 Assessment & Plan Assessment & Plan (1) Current use of anticoagulant therapy: Code(s): Z79.01 - FPC (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
[2023-04-03 13:34] LABS: Prothrombin Time Whole Bld POC 35.6 sec (11.1-13.5)
== END 2023-04-02 08:47 | disposition home or self-care (01) ==
LOC: HO.ACS 08:05
PROVIDERS: PCP Internal Medicine; Visit Provider Internal Medicine
DX: Z79.01 Long term (current) use of anticoagulants (principal)

== ENCOUNTER → 2023-04-02 08:05 | Outpatient (BNVA) | payer OTHER, SELFPAY | PROVIDERS: PCP Internal Medicine; Visit Provider Internal Medicine | DX: I26.99 Other pulmonary embolism without acute cor pulmonale (principal); Z51.81 Encounter for therapeutic drug level monitoring; Z79.01 Long term (current) use of anticoagulants | CPT/HCPCS: 85610; 99211 ==

== ENCOUNTER 2023-04-17 08:05 | Outpatient (AMB) | payer OTHER, SELFPAY ==
[2023-04-17 08:33] LABS: Prothrombin Time Whole Bld POC 15.3 sec (11.1-13.5); ~PT, ~INR - Anti Coag Clinic 1.3 (0.9-1.1)
--- NOTE | 2023-04-17 11:59 | MHC.OFFVISCO ---
Intake Intake Visit Reasons: Anticoagulation Allergies ciprofloxacin [From CIPRO] Allergy (Severe, Verified 04/17/23 08:20) ANAPHYLAXIS fentanyl [FENTANYL] Allergy (Severe, Verified 04/17/23 08:20) ANAPHYLAXIS levofloxacin [From LEVAQUIN] Allergy (Severe, Verified 04/17/23 08:20) Anaphylaxis morphine [MORPHINE] Allergy (Severe, Verified 04/17/23 08:20) ANAPHYLAXIS oxycodone [OXYCODONE] Allergy (Severe, Verified 04/17/23 08:20) ANAPHYLAXIS Narcotics Allergy (Severe, Uncoded 04/02/23 08:32) Anaphylaxis Medication List - Last Reconciled 04/17/23 by Tiffanie Rosario, RN atorvastatin 20 mg PO BEDTIME 90 days [herbal life multivitamin PO] krill oil mg PO DAILY [LIVER HEALTH PO] [mushroom supplement PO] [TURMERIC PO .PRN] warfarin 10 mg See Protocol PO DAILY warfarin 2.5 mg See Protocol PO DAILY Nursing Note PT.STATES THAT SHE MISSED ONE DOSE THIS WEEK. NO CP,SOB,DIET/MED CHANGE OR SX OF BLEEDING. 15MGM TODAY AND TOMORROW THEN RESUME USUAL DOSE AND FOLLOW-UP ON 04/21. NO GREENS 2-3 DAYS GOOD UNDERSTANDING VERB. (NADER,RN) NOTIFIED OF INR AND PLAN OF CARE. 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
== END 2023-04-17 12:04 | disposition home or self-care (01) ==
LOC: HO.ACS 08:05
PROVIDERS: PCP Internal Medicine; Visit Provider Internal Medicine
DX: Z79.01 Long term (current) use of anticoagulants (principal)

== ENCOUNTER → 2023-04-17 08:05 | Outpatient (BNVA) | payer OTHER, SELFPAY | PROVIDERS: PCP Internal Medicine; Visit Provider Internal Medicine | DX: I26.99 Other pulmonary embolism without acute cor pulmonale (principal); Z51.81 Encounter for therapeutic drug level monitoring; Z79.01 Long term (current) use of anticoagulants | CPT/HCPCS: 85610; 99211 ==

== ENCOUNTER 2023-04-21 08:25 | Outpatient (AMB) | payer OTHER, SELFPAY ==
[2023-04-21 08:44] VITALS: BP 114/62; PULSE 60; BMI 32.2
--- NOTE | 2023-04-21 08:44 | MHC.OFFVIS ---
Intake Vital Signs 04/21/23 08:44 Height 5 ft 6 in Weight 199 lb 4.766 oz BMI 32.2 BP 114/62 Blood Pressure Location Lt brachial Position Sitting Pulse 60 Pulse Source Pulse Oximeter Intake Visit Reasons: f/u after testing Allergies ciprofloxacin [From CIPRO] Allergy (Severe, Verified 04/21/23 09:43) ANAPHYLAXIS fentanyl [FENTANYL] Allergy (Severe, Verified 04/21/23 09:43) ANAPHYLAXIS levofloxacin [From LEVAQUIN] Allergy (Severe, Verified 04/21/23 09:43) Anaphylaxis morphine [MORPHINE] Allergy (Severe, Verified 04/21/23 09:43) ANAPHYLAXIS oxycodone [OXYCODONE] Allergy (Severe, Verified 04/21/23 09:43) ANAPHYLAXIS Narcotics Allergy (Severe, Uncoded 04/21/23 09:43) Anaphylaxis Medication List - Last Reconciled 04/21/23 by Gely Williamson, RN FIELD CASE MANAGER-C [herbal life multivitamin PO] krill oil mg PO DAILY [LIVER HEALTH PO] [TURMERIC PO .PRN] warfarin 10 mg See Protocol PO DAILY warfarin 2.5 mg See Protocol PO DAILY HPI f/u after testing HPI Details Ravinder is a 52-year-old female who had been seen in the emergency room with concern of bradycardia. She has a smart watch which recorded her heart rate as low as 42. On last visit she had cardiology consultation and Holter monitor, echocardiogram and ETT were ordered. She now presents for follow-up, to discuss test results. 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 She does 12 hour day shifts,has fatigue and high stress levels at home. She is not having any lightheadedness, presyncope, syncope, falls. When she lays down at night she can notice brief rapid heart palpitations at times. No chest discomfort at rest with activity. No shortness of breath, PND, orthopnea or edema. Active at work but no routine exercise. She has arthritis in her left knee and has no plans for total knee replacement. No routine alcohol use. No illicit substance use. Takes all meds as directed. [facility] Medical History Headache Annual physical exam Pulmonary embolus Weight gain Epigastric pain Pure hypercholesterolemia Osteoarthritis of right knee Hypercoagulable state Obesity (BMI 30-39.9) Thrombophlebitis of lower extremities Attention deficit disorder (ADD) Irritable bowel syndrome (IBS) Lyme disease Rheumatoid arthritis Pseudoangiomatous stromal hyperplasia of breast Breast pain Surgical History H/O arthroscopy of right knee (~11/28/17) H/O colonoscopy Status post medial meniscus repair (~11/28/17) Status post laser ablation of incompetent vein (~2005) History of hernia repair (~2014) History of knee replacement (~10/2018) Family History Paternal Uncle Family history of prostate cancer Paternal Aunt History of uterine cancer Mother Heart attack TIA (transient ischemic attack) Father Hyperlipidemia FH: mitral valve repair Sister Sick sinus syndrome Other History of lung cancer Social History Household Members: Spouse and Children Housing: House Are you a primary daytime caregiver to a significant other at home: No Do you presently have visiting nurse or other home services: No Alcohol intake: never Patient Tobacco Use Status: Former Tobacco user Tobacco use type: Cigarette e-Cigarette/Vaping Use: Never Used Second Hand Smoke Exposure: No service: No Current occupational status: employed Cognitive needs: No Hearing needs: No Vision needs: No Review of Systems Const Details: fatigue All systems reviewed & are unremarkable except as noted in HPI and below ENT Denies dizziness Card Details: brief rapid palpitations. Denies chest pain, Denies chest pain at rest, Denies chest pain with activity, Denies pedal edema, Denies edema, Denies leg edema, Denies lightheadedness, Denies palpitations, Denies dyspnea, Denies dyspnea on exertion and Denies orthopnea Resp Denies cough, Denies dyspnea and Denies dyspnea on exertion GI Denies hematochezia and Denies change in stool character Musc Denies abnormal gait, Denies limited range of motion, Denies muscle cramps, Denies muscle weakness, Denies numbness, Denies radiating pain into limb, Denies stiffness and Denies tingling Neuro Denies abnormal gait, Denies dizziness, Denies numbness and Denies tingling Endo Denies palpitations Physical Exam Vital Signs: Last Vital Signs Pulse 60 12/04/23 08:44 BP 114/62 04/21/23 08:44 BMI result Body Mass Index 32.2 Const General: cooperative, healthy appearing, comfortable and no acute distress Orientation/consciousness: patient oriented x3 Neck Neck: Yes normal visual inspection Resp Effort & Inspection: normal respiratory effort Auscultation: clear to auscultation bilaterally, no crackles, no rales, no rhonchi and no wheezes Cardio Jugular venous distension: no JVD Rate: regular rate Rhythm: regular rhythm Heart sounds: S1 normal heart sound present, S2 normal heart sound present, no murmurs and no rubs Neuro General: patient oriented x3 Extrem General: Yes normal to inspection, No no pedal edema and No calf tenderness Psych Appearance: grossly normal Mental Status: mental status grossly normal Speech and movement: Normal speech and movement present Assessment & Plan Assessment & Plan (1) Cardiomyopathy: Code(s): I42.9 - Cardiomyopathy, unspecified Qualifiers: Cardiomyopathy type: unspecified Qualified Code(s): I42.9 - Cardiomyopathy, unspecified Plan: Incidental finding of mild cardiomyopathy on recent echocardiogram. Echo 03/27/2023 shows EF 45-50%, grade 1 diastolic dysfunction, mild AR, mild MR, left atrium mildly dilated. Holter monitor done 03/27/2023 for 3 days shows sinus rhythm with average heart rate 68, heart rate range 42 to 131, rare SVE, short runs, can not exclude AF, rare VE. An exercise stress test was done 03/27/2023 with exercise just over 8 minutes, no anginal symptoms, normal chronotropic response and no EKG changes of ischemia. At present unclear cause of her cardiomyopathy. She does not appear fluid overloaded on exam. She is reporting an intermittent cough which started recently. Lungs are very clear on examination. Reviewed case with Dr. Vazquez. Recent labs show TSH normal. No known history of sleep apnea. She does have fatigue. Will order a sleep study to evaluate for sleep apnea. Will order a cardiac MRI to evaluate for any structural cause of her cardiomyopathy. Will order a repeat limited echocardiogram in 4-6 months to re-evaluate EF. Diagnosis of cardiomyopathy reviewed with her. Signs and symptoms of heart failure reviewed. Plan to call her with test results. Cardiology follow-up in office 6 months, sooner if needed. ED care if ever needed for concerning symptoms. (2) Bradycardia: Code(s): R00.1 - Bradycardia, unspecified Plan: Patient Concern for bradycardia. She monitors her pulse using a smart watch. She has been seen in the ER for reported heart rate in the 40s and No acute findings identified. Holter monitor as above showing sinus rhythm with average heart rate 68. Can not exclude brief AFib. She will continue to monitor heart rate and palpitations. Instructed to notify this office if she is having any increasing heart palpitations. She is already on Coumadin for hyper coagulable state. If has increasing heart palpitations and AFib is confirmed then she may need rate slowing agents. (3) Palpitation: Code(s): R00.2 - Palpitations Plan: As above. Brief episodes of AF not excluded (4) Current use of anticoagulant therapy: Code(s): Z79.01 - alf (current) use of anticoagulants Plan: Chronically on Coumadin. Orders: Orders MR cardiac morph fnct w con Today I42.9 - Cardiomyopathy, unspecified Basic Metabolic Panel Today I42.9 - Cardiomyopathy, unspecified RT home sleep study Today G47.10 - Hypersomnia, unspecified, I42.9 - Cardiomyopathy, unspecified CA echo limited 08/18/23 I42.9 - Cardiomyopathy, unspecified Coding Level of Care Code Est Pt Level 4 (60044) Diagnoses Cardiomyopathy, unspecified type I42.9 Cardiomyopathy type: unspecified Bradycardia R00.1 Palpitation R00.2 Current use of anticoagulant therapy Z79.01 Time Spent (min) 30
== END 2023-04-21 10:49 | disposition home or self-care (01) ==
PROVIDERS: PCP Internal Medicine; Visit Provider Nurse Practitioner Family
DX: I42.9 Cardiomyopathy, unspecified (principal); R00.1 Bradycardia, unspecified; R00.2 Palpitations; Z79.01 Long term (current) use of anticoagulants
CPT/HCPCS: 99214

== ENCOUNTER → 2023-04-21 08:25 | Outpatient (BNVA) | payer OTHER, SELFPAY | PROVIDERS: PCP Internal Medicine; Visit Provider Nurse Practitioner Family | DX: I42.9 Cardiomyopathy, unspecified (principal); R00.1 Bradycardia, unspecified; R00.2 Palpitations; D68.59 Other primary thrombophilia; Z79.01 Long term (current) use of anticoagulants | CPT/HCPCS: 85610; 99211 ==

== ENCOUNTER 2023-04-21 09:38 | Outpatient (AMB) | payer OTHER, SELFPAY ==
--- NOTE | 2023-04-21 09:50 | MHC.OFFVISCO ---
Intake Intake Visit Reasons: Anticoagulation Allergies ciprofloxacin [From CIPRO] Allergy (Severe, Verified 04/21/23 09:43) ANAPHYLAXIS fentanyl [FENTANYL] Allergy (Severe, Verified 04/21/23 09:43) ANAPHYLAXIS levofloxacin [From LEVAQUIN] Allergy (Severe, Verified 04/21/23 09:43) Anaphylaxis morphine [MORPHINE] Allergy (Severe, Verified 04/21/23 09:43) ANAPHYLAXIS oxycodone [OXYCODONE] Allergy (Severe, Verified 04/21/23 09:43) ANAPHYLAXIS Narcotics Allergy (Severe, Uncoded 04/21/23 09:43) Anaphylaxis Nursing Note INR: 2.2- in therapeutic range of 2-3 Medications and supplements reviewed, no changes No changes in health, diet, medications, or supplements, Denies any signs and symptoms of bleeding or bruising or clotting. 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
[2023-04-21 09:51] LABS: Prothrombin Time Whole Bld POC 26.2 sec (11.1-13.5); ~PT, ~INR - Anti Coag Clinic 2.2 (0.9-1.1)
--- NOTE | 2023-04-21 09:52 | MHC.OFFVISCO ---
Intake Intake Visit Reasons: Anticoagulation Allergies ciprofloxacin [From CIPRO] Allergy (Severe, Verified 04/21/23 09:43) ANAPHYLAXIS fentanyl [FENTANYL] Allergy (Severe, Verified 04/21/23 09:43) ANAPHYLAXIS levofloxacin [From LEVAQUIN] Allergy (Severe, Verified 04/21/23 09:43) Anaphylaxis morphine [MORPHINE] Allergy (Severe, Verified 04/21/23 09:43) ANAPHYLAXIS oxycodone [OXYCODONE] Allergy (Severe, Verified 04/21/23 09:43) ANAPHYLAXIS Narcotics Allergy (Severe, Uncoded 04/21/23 09:43) Anaphylaxis Nursing Note INR: 2.2- in therapeutic range of 2-3 Medications and supplements reviewed- no changes No changes in health, diet, medications, or supplements, Denies any signs and symptoms of bleeding or bruising or clotting. 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
== END 2023-04-21 09:59 | disposition home or self-care (01) ==
LOC: HO.ACS 09:38
PROVIDERS: PCP Internal Medicine; Visit Provider Internal Medicine
DX: Z79.01 Long term (current) use of anticoagulants (principal)

== ENCOUNTER 2023-05-08 08:13 | Outpatient (AMB) | payer OTHER, SELFPAY ==
[2023-05-08 08:43] LABS: ~PT, ~INR - Anti Coag Clinic 1.9 (0.9-1.1)
--- NOTE | 2023-05-08 08:48 | MHC.OFFVISCO ---
Intake Intake Visit Reasons: Anticoagulation Allergies ciprofloxacin [From CIPRO] Allergy (Severe, Verified 05/08/23 08:38) ANAPHYLAXIS fentanyl [FENTANYL] Allergy (Severe, Verified 05/08/23 08:38) ANAPHYLAXIS levofloxacin [From LEVAQUIN] Allergy (Severe, Verified 05/08/23 08:38) Anaphylaxis morphine [MORPHINE] Allergy (Severe, Verified 05/08/23 08:38) ANAPHYLAXIS oxycodone [OXYCODONE] Allergy (Severe, Verified 05/08/23 08:38) ANAPHYLAXIS Narcotics Allergy (Severe, Uncoded 05/08/23 08:38) Anaphylaxis Medication List - Last Reconciled 05/08/23 by Kacey Duke RN [herbal life multivitamin PO] krill oil mg PO DAILY [LIVER HEALTH PO] [TURMERIC PO .PRN] warfarin 10 mg See Protocol PO DAILY warfarin 2.5 mg See Protocol PO DAILY Nursing Note Amb to [facility] feeling ok Medications and supplements reviewed,has resumed multi-vitamin sts she was not feeling well last week, head cold, sts she didn't take anything for it upped fluids No other changes in health, diet, medications, or supplements Denies any unusual signs and symptoms of bruising, bleeding Denies any new Chest pain, SOB, or clotting INR:1.9 just below therapeutic range Nutritional guidance given: no greens today then balance greens and reds in diet Dose: increase dose today to 12.5mg then resume usual dosing;12.5mg x 1 day and 10mg x 6 days F/U INR: 2 weeks Patient verbalizes understanding of instructions given with accurate read back/ teach back of dosing Anti-Coag Initial Assessment Social Hx Patient Tobacco Use Status: Former Tobacco user Tobacco use type: Cigarette alcohol intake: never Alcohol intake frequency: holidays/special occasions only Questionnaires HAS-BLED Does the patient had uncontrolled Hypertension?: No Does the patient have renal disease?: No Does the patient have liver disease?: No Does the patient have a history of stroke?: No Has the patient had major bleeding or predisposition to bleeding?: No Does the patient have labile INRs?: Yes Is the patient over 65 years of age?: No Is the patient on medications that gives them a predisposition to bleeding?: Yes Does the patient use alcohol?: Yes HAS-BLED Score: 3 CHADSVASC Age: <65 Gender: Female Does the patient have a history of CHF?: No Does the patient have a history of Hypertension?: No Does the patient have a history of Stroke/TIA/Thromboembolism?: Yes Does the patient have a history of Vascular Disease (prior OR, PAD or aortic plaque)?: No Does the patient have a history of Diabetes?: No CHADS VACS Score: 3 Amanda Prediction Score Rsk VTE Active Cancer: No Previous VTE, excluding superficial vein thrombosis: Yes Reduced mobility: No With-in last month Trauma and/or Surgery: No Elderly 70 year or older: No Heart and/or Respiratory Failure: No Acute Myocardial infarction and/or Ischemic Stroke: No Acute Infection and/or Rheumatologic Disorder: No Obesity (BMI 30 or greater): Yes Ongoing Hormonal Treatment: No Score: 4 Amanda Score less than 4; Low Risk of VTE Amanda Score 4 or greater; High Risk of VTE Coding Level of Care Code Est Patient Level 1 Diagnoses Current use of anticoagulant therapy Z79.01 Time Spent (min) 15 Assessment & Plan Assessment & Plan (1) Current use of anticoagulant therapy: Code(s): Z79.01 - longterm (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
== END 2023-05-08 11:38 | disposition home or self-care (01) ==
LOC: HO.ACS 08:13
PROVIDERS: PCP Internal Medicine; Visit Provider Internal Medicine
DX: Z79.01 Long term (current) use of anticoagulants (principal)

== ENCOUNTER → 2023-05-08 08:13 | Outpatient (BNVA) | payer OTHER, SELFPAY | PROVIDERS: PCP Internal Medicine; Visit Provider Internal Medicine | DX: I26.99 Other pulmonary embolism without acute cor pulmonale (principal); Z51.81 Encounter for therapeutic drug level monitoring; Z79.01 Long term (current) use of anticoagulants | CPT/HCPCS: 85610; 99211 ==

== ENCOUNTER → 2023-05-23 08:29 | Outpatient (BNVA) | payer OTHER, SELFPAY | PROVIDERS: PCP Internal Medicine; Visit Provider Internal Medicine ==

== ENCOUNTER 2023-05-26 08:01 | Outpatient (AMB) | payer OTHER, SELFPAY ==
--- NOTE | 2023-05-26 08:45 | MHC.OFFVISCO ---
Intake Intake Visit Reasons: Anticoagulation Allergies ciprofloxacin [From CIPRO] Allergy (Severe, Verified 05/26/23 08:06) ANAPHYLAXIS fentanyl [FENTANYL] Allergy (Severe, Verified 05/26/23 08:06) ANAPHYLAXIS levofloxacin [From LEVAQUIN] Allergy (Severe, Verified 05/26/23 08:06) Anaphylaxis morphine [MORPHINE] Allergy (Severe, Verified 05/26/23 08:06) ANAPHYLAXIS oxycodone [OXYCODONE] Allergy (Severe, Verified 05/26/23 08:06) ANAPHYLAXIS Narcotics Allergy (Severe, Uncoded 05/26/23 08:06) Anaphylaxis Medication List - Last Reconciled 05/26/23 by Ericka Brady RN [herbal life multivitamin PO] krill oil mg PO DAILY [LIVER HEALTH PO] medroxyprogesterone 10 mg PO Q12H [TURMERIC PO .PRN] warfarin 10 mg See Protocol PO DAILY warfarin 2.5 mg See Protocol PO DAILY Nursing Note INR: 1.7 out of therapeutic range Medications and supplements reviewed pt had significant vaginal bleeding was treated at [facility] last week and is on depovera 10mg po bid x 30days to stop the bleeding, it has stopped, Micromedex states no known interactio Uptodate states it could either raise the INR or lower it and to monitor INR Her INR was 3.0 her Sat warfarin dose was decreased with hopes to have INR closer to 2.0 she may also have a UTI and will be discussing with md - she will call if she starts any new medications Denies any signs and symptoms of bleeding or bruising or clotting. Bleeding, bruising, clotting discussed Nutritional guidance given - avoid greens x 3 days, eat orange or reds or have a small glass of cranberry and or blueberry to help decrease UTI risk Dose: keep same for now due to recent bleeding 12.5mg mondays/ 10mg x 6 days recheck friday F/U INR: 05/30/23 Patient verbalizes understanding of instructions given Anti-Coag Initial Assessment Social Hx Patient Tobacco Use Status: Former Tobacco user Tobacco use type: Cigarette alcohol intake: never Alcohol intake frequency: holidays/special occasions only Coding Level of Care Code Est Patient Level 1 Diagnoses Current use of anticoagulant therapy Z79.01 Assessment & Plan Assessment & Plan (1) Current use of anticoagulant therapy: Code(s): 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
== END 2023-05-26 08:59 | disposition home or self-care (01) ==
LOC: HO.ACS 08:01
PROVIDERS: PCP Internal Medicine; Visit Provider Internal Medicine
DX: Z79.01 Long term (current) use of anticoagulants (principal)

== ENCOUNTER → 2023-05-26 08:01 | Outpatient (BNVA) | payer OTHER, SELFPAY | PROVIDERS: PCP Internal Medicine; Visit Provider Internal Medicine | DX: I26.99 Other pulmonary embolism without acute cor pulmonale (principal); Z51.81 Encounter for therapeutic drug level monitoring; Z79.01 Long term (current) use of anticoagulants | CPT/HCPCS: 85610; 99211 ==

== ENCOUNTER 2023-05-30 08:03 | Outpatient (AMB) | payer OTHER, SELFPAY ==
[2023-05-30 08:26] LABS: Prothrombin Time Whole Bld POC 25.6 sec (11.1-13.5); ~PT, ~INR - Anti Coag Clinic 2.1 (0.9-1.1)
--- NOTE | 2023-05-30 08:31 | MHC.OFFVISCO ---
Intake Intake Visit Reasons: Anticoagulation Allergies ciprofloxacin [From CIPRO] Allergy (Severe, Verified 05/30/23 08:21) ANAPHYLAXIS fentanyl [FENTANYL] Allergy (Severe, Verified 05/30/23 08:21) ANAPHYLAXIS levofloxacin [From LEVAQUIN] Allergy (Severe, Verified 05/30/23 08:21) Anaphylaxis morphine [MORPHINE] Allergy (Severe, Verified 05/30/23 08:21) ANAPHYLAXIS oxycodone [OXYCODONE] Allergy (Severe, Verified 05/30/23 08:21) ANAPHYLAXIS Narcotics Allergy (Severe, Uncoded 05/30/23 08:21) Anaphylaxis Medication List - Last Reconciled 05/30/23 by Ericka Brady, RN [herbal life multivitamin PO] krill oil mg PO DAILY [LIVER HEALTH PO] medroxyprogesterone 10 mg PO Q12H [TURMERIC PO .PRN] warfarin 10 mg See Protocol PO DAILY warfarin 2.5 mg See Protocol PO DAILY Nursing Note INR: 2.1 in therapeutic range Medications and supplements reviewed no current vaginal bleeding - still on Depovera 9 medroxyprogesterone -could increase or decrease INR planning possible D+C mid jun to see hem onc and cardiology firts Denies any signs and symptoms of bleeding or bruising or clotting. Bleeding, bruising, clotting discussed Nutritional guidance given - eat a mix of fruits and vegetables Dose: keep same for now 12.5mg x 1 day/ 10mg x 6days F/U INR: weekly for now Patient verbalizes understanding of instructions given Anti-Coag Initial Assessment Social Hx Patient Tobacco Use Status: Former Tobacco user Tobacco use type: Cigarette alcohol intake: never Alcohol intake frequency: holidays/special occasions only Coding Level of Care Code Est Patient Level 1 Diagnoses Current use of anticoagulant therapy Z79.01 Results AMB INR Fingerstick AMB INR Fingerstick 2.1 Last Edit by Ericka Brady RN on 05/30/23 08:26 manual entry Assessment & Plan Assessment & Plan (1) Current use of anticoagulant therapy: Code(s): Z79.01 - group 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
== END 2023-05-30 08:34 | disposition home or self-care (01) ==
LOC: HO.ACS 08:03
PROVIDERS: PCP Internal Medicine; Visit Provider Internal Medicine
DX: Z79.01 Long term (current) use of anticoagulants (principal)

== ENCOUNTER 2023-05-30 08:03 | Outpatient (REF) | payer OTHER, SELFPAY | END 2023-05-30 08:04 | disposition home or self-care (01) | LOC: CF 08:03 | PROVIDERS: PCP Internal Medicine; Visit Provider Internal Medicine | DX: I26.99 Other pulmonary embolism without acute cor pulmonale (principal); Z51.81 Encounter for therapeutic drug level monitoring; Z79.01 Long term (current) use of anticoagulants | CPT/HCPCS: 85610; 99211 ==

== ENCOUNTER → 2023-06-05 08:13 | Outpatient (REF) | payer OTHER, SELFPAY ==
--- NOTE | 2023-06-05 08:15 | HM_ITS ---
* Total monitoring time 4 days. * Underlying rhythm is sinus with an average rate of 70/Min. Range 46 to 123/Min. * Rare supraventricular ectopy. * Very rare ventricular ectopy. * No sustained arrhythmias. * No significant pauses or AV blocks. * No patient markers or diary events. MTDD
== END ==
LOC: HO.CARD 08:13
PROVIDERS: PCP Internal Medicine; Visit Provider Nurse Practitioner Family
DX: R00.2 Palpitations (principal); R00.0 Tachycardia, unspecified; R00.1 Bradycardia, unspecified
CPT/HCPCS: 85610; 93242; 99211

== ENCOUNTER → 2023-06-05 08:15 | Outpatient (BNV) | payer OTHER, SELFPAY | PROVIDERS: PCP Internal Medicine; Visit Provider Internal Medicine | DX: I47.10 Supraventricular tachycardia, unspecified (principal) | CPT/HCPCS: 93244 ==

== ENCOUNTER 2023-06-05 08:27 | Outpatient (AMB) | payer OTHER, SELFPAY ==
[2023-06-05 08:40] LABS: ~PT, ~INR - Anti Coag Clinic 2.3 (0.9-1.1)
--- NOTE | 2023-06-05 08:44 | MHC.OFFVISCO ---
Intake Intake Visit Reasons: Anticoagulation Allergies ciprofloxacin [From CIPRO] Allergy (Severe, Verified 06/05/23 08:33) ANAPHYLAXIS fentanyl [FENTANYL] Allergy (Severe, Verified 06/05/23 08:33) ANAPHYLAXIS levofloxacin [From LEVAQUIN] Allergy (Severe, Verified 06/05/23 08:33) Anaphylaxis morphine [MORPHINE] Allergy (Severe, Verified 06/05/23 08:33) ANAPHYLAXIS oxycodone [OXYCODONE] Allergy (Severe, Verified 06/05/23 08:33) ANAPHYLAXIS Narcotics Allergy (Severe, Uncoded 06/05/23 08:33) Anaphylaxis Medication List - Last Reconciled 06/05/23 by Kacey Duke RN [herbal life multivitamin PO] krill oil mg PO DAILY [LIVER HEALTH PO] medroxyprogesterone 10 mg PO Q12H [TURMERIC PO .PRN] warfarin 10 mg See Protocol PO DAILY warfarin 2.5 mg See Protocol PO DAILY Nursing Note Amb to [facility] feeling well, no further vag bleeding, waiting on further exams and possible hysterectomy, nothing conclusive or booked at present Medications and supplements reviewed No changes in health, diet, medications, or supplements Denies any unusual signs and symptoms of bruising, bleeding, as noted above Denies any new Chest pain, SOB, or clotting INR: 2.3 in therapeutic range Nutritional guidance given: balance greens and reds in diet, be consistent Dose: continue usual dosing;12.5mg on Mondays and 10mg all other days F/U INR:2 weeks Patient verbalizes understanding of instructions given with accurate read back/ teach back of dosing Anti-Coag Initial Assessment Social Hx Patient Tobacco Use Status: Former Tobacco user Tobacco use type: Cigarette alcohol intake: never Alcohol intake frequency: holidays/special occasions only Coding Level of Care Code Est Patient Level 1 Diagnoses Current use of anticoagulant therapy Z79.01 Time Spent (min) 15 Assessment & Plan Assessment & Plan (1) Current use of anticoagulant therapy: Code(s): Z79.01 - alf (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
== END 2023-06-05 08:49 | disposition home or self-care (01) ==
LOC: HO.ACS 08:27
PROVIDERS: PCP Internal Medicine; Visit Provider Internal Medicine
DX: Z79.01 Long term (current) use of anticoagulants (principal)

== ENCOUNTER 2023-06-13 08:06 | Outpatient (AMB) | payer OTHER, SELFPAY ==
--- NOTE | 2023-06-13 08:53 | MHC.OFFVISCO ---
Intake Intake Visit Reasons: Anticoagulation Allergies ciprofloxacin [From CIPRO] Allergy (Severe, Verified 06/13/23 08:40) ANAPHYLAXIS fentanyl [FENTANYL] Allergy (Severe, Verified 06/13/23 08:40) ANAPHYLAXIS levofloxacin [From LEVAQUIN] Allergy (Severe, Verified 06/13/23 08:40) Anaphylaxis morphine [MORPHINE] Allergy (Severe, Verified 06/13/23 08:40) ANAPHYLAXIS oxycodone [OXYCODONE] Allergy (Severe, Verified 06/13/23 08:40) ANAPHYLAXIS Narcotics Allergy (Severe, Uncoded 06/13/23 08:40) Anaphylaxis Medication List - Last Reconciled 06/13/23 by Ericka Brady RN [herbal life multivitamin PO] krill oil mg PO DAILY [LIVER HEALTH PO] medroxyprogesterone 10 mg PO DAILY [TURMERIC PO .PRN] warfarin 10 mg See Protocol PO DAILY warfarin 2.5 mg See Protocol PO DAILY Nursing Note INR: 2.5 in therapeutic range Medications and supplements reviewed has decreased medroxyprogesterone frm bid to daily * no vaginal bleeding * date of D+C pending Denies any signs and symptoms of bleeding or bruising or clotting. Bleeding, bruising, clotting discussed Nutritional guidance given - eat a selvin of fruits and vegetables Dose: 12.5mg x 1 day/ 10mg x 6 days F/U INR: 2 weeks Patient verbalizes understanding of instructions given Anti-Coag Initial Assessment Social Hx Patient Tobacco Use Status: Former Tobacco user Tobacco use type: Cigarette alcohol intake: never Alcohol intake frequency: holidays/special occasions only Coding Level of Care Code Est Patient Level 1 Diagnoses Current use of anticoagulant therapy Z79.01 Results AMB INR Fingerstick AMB INR Fingerstick 2.5 Last Edit by Ericka Brady RN on 06/13/23 08:50 manual entry Assessment & Plan Assessment & Plan (1) Current use of anticoagulant therapy: Code(s): Z79.01 - half-way (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
[2023-06-16 17:35] LABS: Prothrombin Time Whole Bld POC 30.4 sec (11.1-13.5); ~PT, ~INR - Anti Coag Clinic 2.5 (0.9-1.1)
== END 2023-06-13 08:58 | disposition home or self-care (01) ==
LOC: HO.ACS 08:07
PROVIDERS: PCP Internal Medicine; Visit Provider Internal Medicine
DX: Z79.01 Long term (current) use of anticoagulants (principal)

== ENCOUNTER → 2023-06-13 08:06 | Outpatient (BNVA) | payer OTHER, SELFPAY | PROVIDERS: PCP Internal Medicine; Visit Provider Internal Medicine | DX: I26.99 Other pulmonary embolism without acute cor pulmonale (principal); Z51.81 Encounter for therapeutic drug level monitoring; Z79.01 Long term (current) use of anticoagulants | CPT/HCPCS: 85610; 99211 ==

== ENCOUNTER 2023-06-27 08:19 | Outpatient (AMB) | payer OTHER, SELFPAY ==
[2023-06-27 08:27] LABS: Prothrombin Time Whole Bld POC 32.4 sec (11.1-13.5); ~PT, ~INR - Anti Coag Clinic 2.7 (0.9-1.1)
--- NOTE | 2023-06-27 08:36 | MHC.OFFVISCO ---
Intake Intake Visit Reasons: Anticoagulation Allergies ciprofloxacin [From CIPRO] Allergy (Severe, Verified 06/27/23 08:22) ANAPHYLAXIS fentanyl [FENTANYL] Allergy (Severe, Verified 06/27/23 08:22) ANAPHYLAXIS levofloxacin [From LEVAQUIN] Allergy (Severe, Verified 06/27/23 08:22) Anaphylaxis morphine [MORPHINE] Allergy (Severe, Verified 06/27/23 08:22) ANAPHYLAXIS oxycodone [OXYCODONE] Allergy (Severe, Verified 06/27/23 08:22) ANAPHYLAXIS Narcotics Allergy (Severe, Uncoded 06/27/23 08:22) Anaphylaxis Medication List - Last Reconciled 06/27/23 by Kacey Duke RN [herbal life multivitamin PO] krill oil mg PO DAILY [LIVER HEALTH PO] medroxyprogesterone 10 mg PO DAILY [TURMERIC PO .PRN] warfarin 10 mg See Protocol PO DAILY warfarin 2.5 mg See Protocol PO DAILY Nursing Note Amb to ACS feeling well Medications and supplements reviewed, 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 07/03- scraping and insertion IUD- sts she was told by Dr Champagne no hold sts PATIENT SAFETY TECH is aware No changes in health, diet, medications, or supplements Denies any unusual signs and symptoms of bruising, bleeding Denies any new Chest pain, SOB, or clotting INR: 2.7 in therapeutic range Nutritional guidance given: balance greens and reds in diet, have a moderate green evening before procedure Dose: continue usual dosing; 12.5mg x 1 day and 10mg all other days F/U INR: 2 weeks (call earlier for appointment if any issues post procedure- INR at [facility] day before procedure, no warfarin hold) Patient verbalizes understanding of instructions given with accurate read back/ teach back of dosing Anti-Coag Initial Assessment Social Hx Patient Tobacco Use Status: Former Tobacco user Tobacco use type: Cigarette alcohol intake: never Alcohol intake frequency: holidays/special occasions only Coding Level of Care Code Est Patient Level 1 Diagnoses Current use of anticoagulant therapy Z79.01 Time Spent (min) 15 Assessment & Plan Assessment & Plan (1) Current use of anticoagulant therapy: Code(s): Z79.01 - rn long term care (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
== END 2023-06-27 08:43 | disposition home or self-care (01) ==
LOC: HO.ACS 08:19
PROVIDERS: PCP Internal Medicine; Visit Provider Internal Medicine
DX: Z79.01 Long term (current) use of anticoagulants (principal)

== ENCOUNTER → 2023-06-27 08:19 | Outpatient (BNVA) | payer OTHER, SELFPAY | PROVIDERS: PCP Internal Medicine; Visit Provider Internal Medicine | DX: I26.99 Other pulmonary embolism without acute cor pulmonale (principal); Z51.81 Encounter for therapeutic drug level monitoring; Z79.01 Long term (current) use of anticoagulants | CPT/HCPCS: 85610; 99211 ==

== ENCOUNTER 2023-07-29 08:09 | Outpatient (AMB) | payer OTHER, SELFPAY ==
[2023-07-29 08:25] LABS: Prothrombin Time Whole Bld POC 35.3 sec (11.1-13.5); ~PT, ~INR - Anti Coag Clinic 2.9 (0.9-1.1)
--- NOTE | 2023-07-29 08:39 | MHC.OFFVISCO ---
Intake Intake Visit Reasons: Anticoagulation Allergies ciprofloxacin [From CIPRO] Allergy (Severe, Verified 07/29/23 08:13) ANAPHYLAXIS fentanyl [FENTANYL] Allergy (Severe, Verified 07/29/23 08:13) ANAPHYLAXIS levofloxacin [From LEVAQUIN] Allergy (Severe, Verified 07/29/23 08:13) Anaphylaxis morphine [MORPHINE] Allergy (Severe, Verified 07/29/23 08:13) ANAPHYLAXIS oxycodone [OXYCODONE] Allergy (Severe, Verified 07/29/23 08:13) ANAPHYLAXIS Narcotics Allergy (Severe, Uncoded 07/29/23 08:13) Anaphylaxis Medication List - Last Reconciled 07/29/23 by Ericka Brady RN [herbal life multivitamin PO] krill oil mg PO DAILY levonorgestrel (Liletta) intrauterine [LIVER HEALTH PO] [TURMERIC PO .PRN] warfarin 10 mg See Protocol PO DAILY warfarin 2.5 mg See Protocol PO DAILY Nursing Note INR: 2.9 in therapeutic range Medications and supplements reviewed hAD IUD PLACED- 07/03/23MAY POSSIBLY RAISE OR LOWER THE INR - WITH DELAYED ONSET, HAD PROCEDURE ABOUT 1 MONTH AGO, SHE IS OFF MEDROXYPREDNISONE Denies any signs and symptoms of bleeding or bruising or clotting. Bleeding, bruising, clotting discussed Nutritional guidance given - REVEIW FOOD LIST, EAT A MIX OF FRUITS AND VEGETABLES Dose: KEEP SAME 12.5MG X 1 DAYS/ 10MG X 6 DAYS F/U INR: 2 WEEKS JUST TO MAKE SURE INR STABLE POST PROCEDURE AND HORMONAL EFFECTS Patient verbalizes understanding of instructions given Anti-Coag Initial Assessment Social Hx Patient Tobacco Use Status: Former Tobacco user Tobacco use type: Cigarette alcohol intake: never Alcohol intake frequency: holidays/special occasions only Coding Level of Care Code Est Patient Level 1 Diagnoses Current use of anticoagulant therapy Z79.01 Assessment & Plan Assessment & Plan (1) Current use of anticoagulant therapy: Code(s): Z79.01 - [facility] (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
== END 2023-07-29 08:45 | disposition home or self-care (01) ==
LOC: HO.ACS 08:10
PROVIDERS: PCP Internal Medicine; Visit Provider Internal Medicine
DX: Z79.01 Long term (current) use of anticoagulants (principal)

== ENCOUNTER → 2023-07-29 08:09 | Outpatient (BNVA) | payer OTHER, SELFPAY | PROVIDERS: PCP Internal Medicine; Visit Provider Internal Medicine | DX: I26.99 Other pulmonary embolism without acute cor pulmonale (principal); Z51.81 Encounter for therapeutic drug level monitoring; Z79.01 Long term (current) use of anticoagulants | CPT/HCPCS: 85610; 99211 ==

== ENCOUNTER 2023-08-13 08:17 | Outpatient (AMB) | payer OTHER, SELFPAY ==
[2023-08-13 08:27] LABS: Prothrombin Time Whole Bld POC 26.6 sec (11.1-13.5); ~PT, ~INR - Anti Coag Clinic 2.2 (0.9-1.1)
--- NOTE | 2023-08-13 08:32 | MHC.OFFVISCO ---
Intake Intake Visit Reasons: Anticoagulation Allergies ciprofloxacin [From CIPRO] Allergy (Severe, Verified 08/13/23 08:21) ANAPHYLAXIS fentanyl [FENTANYL] Allergy (Severe, Verified 08/13/23 08:21) ANAPHYLAXIS levofloxacin [From LEVAQUIN] Allergy (Severe, Verified 08/13/23 08:21) Anaphylaxis morphine [MORPHINE] Allergy (Severe, Verified 08/13/23 08:21) ANAPHYLAXIS oxycodone [OXYCODONE] Allergy (Severe, Verified 08/13/23 08:21) ANAPHYLAXIS Narcotics Allergy (Severe, Uncoded 08/13/23 08:21) Anaphylaxis Medication List - Last Reconciled 08/13/23 by Ericka Brady RN [herbal life multivitamin PO] krill oil 1,000 mg PO DAILY levonorgestrel (Liletta) intrauterine [LIVER HEALTH PO] [TURMERIC PO .PRN] warfarin 10 mg See Protocol PO DAILY warfarin 2.5 mg See Protocol PO DAILY Nursing Note INR: 2.2 in therapeutic range Medications and supplements reviewed No changes in health, diet, medications, or supplements, Denies any signs and symptoms of bleeding or bruising or clotting. 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
== END 2023-08-13 08:35 | disposition home or self-care (01) ==
LOC: HO.ACS 08:17
PROVIDERS: PCP Internal Medicine; Visit Provider Internal Medicine
DX: Z79.01 Long term (current) use of anticoagulants (principal)

== ENCOUNTER → 2023-08-13 08:17 | Outpatient (BNVA) | payer OTHER, SELFPAY | PROVIDERS: PCP Internal Medicine; Visit Provider Internal Medicine | DX: I26.99 Other pulmonary embolism without acute cor pulmonale (principal); Z51.81 Encounter for therapeutic drug level monitoring; Z79.01 Long term (current) use of anticoagulants | CPT/HCPCS: 85610; 99211 ==

== ENCOUNTER → 2023-08-14 08:12 | Outpatient (REF) | payer OTHER, SELFPAY ==
--- NOTE | 2023-08-14 08:15 | CA_ITS ---
Transthoracic Echocardiogram Patient (Last, First, Middle): Ravinder Vera J Gender: Female Date of : 1970 Age: 53 Procedure Date: 08/14/2023 Procedure Type: Transthoracic Echocardiogram Location: OP Height: 167.64 cm Weight: 79.38 kg BSA: 1.89 m2 Heart Rate: bpm BP: 116 / 64 mmHg Fish Icer: MIGUE Referring MD: Gely Williamson HOME SUPPORT WORKERTriston Global Head [employer]vertiser [employer]: Hima Vazquez MD Symptoms: I42.9 - Cardiomyopathy, unspecified Study Quality: Adequate ECG Rhythm: Sinus Conclusions: - Low normal LV systolic function Findings Left Ventricle Normal left ventricular cavity size. There is normal left ventricular wall thickness. The left ventricular systolic function is low normal. The visually estimated ejection fraction is between 50-55%. Spectral Doppler is indicative of a normal filling pattern. Peak GLS is -22.9%, within normal limits. Prior Study Comparison Changes noted compared to prior study dated: 03/27/2023. LV systolic function is marginally improved Measurements 2D Linear Measurements IVSd: 0.83 0.6-0.9/0.6-1.0 cm LVIDd: 5.18 3.9-5.3/4.2-5.9 cm LVIDd Index: 2.74 2.4-3.2/2.2-3.1 cm/m2 LVIDs: 3.43 2.0-3.6 cm LVPWd: 0.74 0.7-1.1 cm LA Diam: 3.60 2.7-3.8/3.0-4.0 cm LAIDs Index: 1.90 1.5-2.3 cm/m2 LV Mass: 175.01 67-162/88-224 g LV Mass Index: 92.60 43-95/49-115 g/m2 LVOT Diam: 2.00 3.0+(-)1.3 cm 2D Systolic Function EF 4C: 54.40 >55% EF 2C: 54.40 >55% EF BiP: 52.80 >55% Mitral Valve MV Pk E: 0.79 MV PK A: 0.51 MV Decel Time: 231.00 E/A: 1.50 E'Lateral: 10.40 E'Medial: 7.07 E/E' Med: 11.20 E/E' Lat: 7.60 PHT: 68.00 MVA PHT: 3.24 Decel [place]: 3.43 LVOT LVOT Pk Gino: 0.82 LVOT Mn Gino: 0.53 LVOT VTI: 0.21 LVOT Pk Grad: 3.00 LVOT Mn Grad: 1.00 LVOT Diam: 2.00 LVOT Area: 3.14 Diastolic Function MV Pk E: 0.79 MV Pk A: 0.51 E/A: 1.50 E'Medial: 7.07 E/E' Med: 11.20 E' Laterial: 10.40 E/E' Lat: 7.60 Tricuspid Valve RA Press: 3.00 Updated in Other Vendor System with Status of Final Hima Vazquez MD electronically signed on 08/14/2023 4:55:14 PM with status of Final
== END ==
LOC: HO.CARD 08:12
PROVIDERS: PCP Internal Medicine; Visit Provider Nurse Practitioner Family
DX: I42.9 Cardiomyopathy, unspecified (principal)
CPT/HCPCS: 93308; 93356

== ENCOUNTER → 2023-08-14 08:15 | Outpatient (BNV) | payer OTHER, SELFPAY | PROVIDERS: PCP Internal Medicine; Visit Provider Internal Medicine Cardiovascular Disease | DX: I42.9 Cardiomyopathy, unspecified (principal) | CPT/HCPCS: 93308; 93321; 93356 ==

== ENCOUNTER 2023-08-15 06:22 | Outpatient (REF) | payer OTHER, SELFPAY ==
[2023-08-15 06:39] LABS: MANUAL DIFF FLAG NO
[2023-08-15 07:40] LABS: Basophils Absolute Auto 0.1 X10*3/uL (0.0-0.2); Basophils Percent Auto 1.1 % (0-2); Eosinophils Absolute Auto 0.2 X10*3/uL (0.0-0.4); Eosinophils Percent Auto 3.7 % (0-4); Hematocrit 38.9 % (37.0-47.0); Hemoglobin 12.4 g/dl (12.0-16.0); Imm Gran Abs Auto 0.01 X10*3/uL (0.00-0.03); Imm Gran Pct Auto 0.2 % (0.0-0.4); Lymphocytes Absolute Auto 1.9 X10*3/uL (1.2-4.9); Lymphocytes Percent Auto 34.2 % (20-40); Mean Corpuscular HGB Conc 31.9 g/dl (31.0-35.0); Mean Corpuscular Hemoglobin 27.8 pg (27.0-33.0); Mean Corpuscular Volume 87.2 fL (80.0-98.0); Mean Platelet Volume 9.6 fL (9.4-12.3); Monocytes Absolute Auto 0.5 X10*3/uL (0.1-1.2); Neutrophils Absolute Auto 2.9 x10*3/uL (2.0-8.3); Neutrophils Percent Auto 51.8 % (45-73); Platelet Count 315 X10*3/uL (160-400); Red Blood Count 4.46 X10*6/uL (4.20-5.50); Red Cell Distribution Width 12.9 % (11.0-16.0); White Blood Count 5.7 X10*3/uL (4.8-10.8)
[2023-08-15 07:55] LABS: Alanine Aminotransferase 16 U/L (0-31); Albumin Level 4.1 g/dL (3.5-5.0); Alkaline Phosphatase 75 U/L (39-117); Anion Gap 9 (12-20); Aspartate Amino Transferase 25 U/L (5-31); Bilirubin Total 0.5 mg/dL (0.0-1.0); Blood Urea Nitrogen 18 mg/dL (9-16); Calcium 9.3 mg/dL (8.4-10.2); Carbon Dioxide 27 mmol/L (22-29); Chloride 108 mmol/L (96-108); Cholesterol 207 mg/dL (<200); Estimated Glomerular Filt Rate > 60; Glucose Fasting 86 mg/dL (60-99); HDL Cholesterol 60 mg/dL (>40); LDL Cholesterol Calculated 129 mg/dL (<100); Potassium 4.2 mmol/L (3.3-5.1); Sodium 140 mmol/L (135-145); Total Protein 6.9 g/dL (6.5-8.0); Triglycerides 94 mg/dL (<150)
[2023-08-15 08:00] LABS: Appearance Urine Cloudy; Color Urine Yellow; Glucose Urine UA Negative (Negative); Leukocyte Esterase Urine Moderate (2+) (Negative); Nitrite Urine Negative (Negative); PH 6.5 (5.0-9.0); UMIC TRIGGER UACC YES; Urine Blood Negative (Negative); Urine Ketones Negative (Negative); Urine Protein Negative (Neg-Trace)
[2023-08-15 08:03] LABS: Bacteria Urine 1+ (None Seen); Hyaline Casts Urine 0-2 /LPF (0-2); RBC Urine 0-2 /HPF (0-2); Squamous Epithelial Cell Urine >20 /HPF (0-2); UACC Culture Trigger YES; WBC Urine 21-50 /HPF (0-5)
[2023-08-15 08:15] LABS: TSH reflex Free T4 1.74 uIU/mL (0.32-4.0); Vitamin D 25-OH Total 26.4 ng/mL (>30)
== END 2023-08-15 06:23 | disposition home or self-care (01) ==
LOC: HO.LAB 06:22
PROVIDERS: Absent Provider Nurse Practitioner Family; PCP Internal Medicine; Visit Provider Internal Medicine
DX: E78.00 Pure hypercholesterolemia, unspecified (principal); I10 Essential (primary) hypertension; E55.9 Vitamin D deficiency, unspecified; R30.0 Dysuria
CPT/HCPCS: 36415; 80053; 80061; 81001; 81003; 82306; 84443; 85025; 87086

== ENCOUNTER 2023-08-19 14:46 | Outpatient (AMB) | payer OTHER, SELFPAY ==
[2023-08-19 15:05] VITALS: BP 120/72; PULSE 82; BMI 30.5
--- NOTE | 2023-08-19 15:05 | A.OFFVIS_ITS ---
Intake Vital Signs 08/19/23 15:05 Height 5 ft 6 in Weight 188 lb 11.451 oz BMI 30.5 BP 120/72 Blood Pressure Location Lt brachial Position Sitting Pulse 82 Pulse Source Pulse Oximeter Intake Visit Reasons: f/u after testing Food Production Associate Required: No Allergies ciprofloxacin [From CIPRO] Allergy (Severe, Verified 08/19/23 15:07) ANAPHYLAXIS fentanyl [FENTANYL] Allergy (Severe, Verified 08/19/23 15:07) ANAPHYLAXIS levofloxacin [From LEVAQUIN] Allergy (Severe, Verified 08/19/23 15:07) Anaphylaxis morphine [MORPHINE] Allergy (Severe, Verified 08/19/23 15:07) ANAPHYLAXIS oxycodone [OXYCODONE] Allergy (Severe, Verified 08/19/23 15:07) ANAPHYLAXIS Narcotics Allergy (Severe, Uncoded 08/19/23 15:07) Anaphylaxis Medication List - Last Reconciled 08/19/23 by Gely Williamson, VP DIRECTOR OF FINANCE-C [herbal life multivitamin PO] krill oil 1,000 mg PO DAILY levonorgestrel (Liletta) intrauterine [LIVER HEALTH PO] [TURMERIC PO .PRN] warfarin 10 mg See Protocol PO DAILY warfarin 2.5 mg See Protocol PO DAILY HPI f/u after testing HPI Details Ravinder is a 53-year-old female who had been seen in the emergency room with concern of bradycardia. She has a smart watch which recorded her heart rate as low as 42. On follow up visit she had cardiology consultation and Holter monitor, echocardiogram and ETT were ordered. She was found to have mild nonischemic cardiomyopathy. She then had cardiac MRI and repeat echo and nnow presents for follow-up, to discuss test results. Today she reports she has been feeling very well without any concerning symptoms. 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 She does 12 hour day shifts,has fatigue and high stress levels at home. She is not having any lightheadedness, presyncope, syncope, falls. When she lays down at night she can notice brief rapid heart palpitations at times. No chest discomfort at rest with activity. No shortness of breath, PND, orthopnea or edema. Active at work but no routine exercise. Takes all meds as directed. [facility] Medical History Headache Annual physical exam Pulmonary embolus Weight gain Epigastric pain Pure hypercholesterolemia Osteoarthritis of right knee Hypercoagulable state Obesity (BMI 30-39.9) Thrombophlebitis of lower extremities Attention deficit disorder (ADD) Irritable bowel syndrome (IBS) Lyme disease Rheumatoid arthritis Pseudoangiomatous stromal hyperplasia of breast Breast pain Surgical History H/O arthroscopy of right knee (~11/28/17) H/O colonoscopy Status post medial meniscus repair (~11/28/17) Status post laser ablation of incompetent vein (~2005) History of hernia repair (~2014) History of knee replacement (~10/2018) Family History Paternal Uncle Family history of prostate cancer Paternal Aunt History of uterine cancer Mother Heart attack TIA (transient ischemic attack) Father Hyperlipidemia FH: mitral valve repair Sister Sick sinus syndrome Other History of lung cancer Social History Household Members: Spouse and Children Housing: House Are you a primary direct care counselor to a significant other at home: No Do you presently have visiting nurse or other home services: No Alcohol intake: never Patient Tobacco Use Status: Former Tobacco user Tobacco use type: Cigarette e-Cigarette/Vaping Use: Never Used Second Hand Smoke Exposure: No service: No Current occupational status: employed Cognitive needs: No Hearing needs: No Vision needs: No Review of Systems Const All systems reviewed & are unremarkable except as noted in HPI and below ENT Denies dizziness Card Denies chest pain, Denies chest pain at rest, Denies chest pain with activity, Denies rapid heart rate, Denies pedal edema, Denies edema, Denies leg edema, Denies lightheadedness, Denies palpitations, Denies dyspnea, Denies dyspnea on exertion and Denies orthopnea Resp Denies cough, Denies dyspnea and Denies dyspnea on exertion GI Denies hematochezia and Denies change in stool character Musc Denies abnormal gait, Denies limited range of motion, Denies muscle cramps, Denies muscle weakness, Denies numbness, Denies radiating pain into limb, Denies stiffness and Denies tingling Neuro Denies abnormal gait, Denies dizziness, Denies numbness and Denies tingling Endo Denies palpitations Physical Exam Vital Signs: Last Vital Signs Pulse 82 08/19/23 15:05 BP 120/72 08/19/23 15:05 BMI result Body Mass Index 30.5 Const General: cooperative, healthy appearing, comfortable and no acute distress Orientation/consciousness: patient oriented x3 Neck Neck: Yes normal visual inspection and Yes no JVD Resp Effort & Inspection: normal respiratory effort Auscultation: clear to auscultation bilaterally, no crackles, no rales, no rhonchi and no wheezes Cardio Jugular venous distension: no JVD Rate: regular rate Rhythm: regular rhythm Heart sounds: S1 normal heart sound present, S2 normal heart sound present, no murmurs and no rubs Neuro General: patient oriented x3 Extrem General: Yes normal to inspection and No no pedal edema Psych Appearance: grossly normal Mental Status: mental status grossly normal Speech and movement: Normal speech and movement present Assessment & Plan Assessment & Plan (1) Cardiomyopathy: Code(s): I42.9 - Cardiomyopathy, unspecified Qualifiers: Cardiomyopathy type: unspecified Qualified Code(s): I42.9 - Cardiomyopathy, unspecified Plan: Incidental finding of mild cardiomyopathy on recent echocardiogram. Echo 03/27/2023 shows EF 45-50%, grade 1 diastolic dysfunction, mild AR, mild MR, left atrium mildly dilated. Holter monitor done 03/27/2023 for 3 days shows sinus rhythm with average heart rate 68, heart rate range 42 to 131, rare SVE, short runs, can not exclude AF, rare VE. An exercise stress test was done 03/27/2023 with exercise just over 8 minutes, no anginal symptoms, normal chronotropic response and no EKG changes of ischemia. A sleep study had been ordered however she was not able to complete due to scheduling difficulties. She strongly believes that she does not have sleep apnea. Only rare alcohol consumption. The cause of her mild cardiomyopathy is unclear. She did have COVID which she feels may have contributed. A repeat echocardiogram was done on 08/14/2023 showing EF 50-55%. She had a cardiac MRI done on 08/17/2023 showing LV normal size and wall thickness, EF 43%, no hemodynamically significant valve dysfunction, no evidence of SD, myocarditis, infiltrative or hypertrophic cardiomyopathy, conclusion nonischemic cardiomyopathy without evidence of fibrosis. Patient informed of these results and discussed in detail. I gave her copy of the MRI report. She does not appear fluid overloaded on exam. She offers no concerning symptoms at this time. She does not want to proceed with the sleep study. Her blood pressure today is 120/72. She tells me that is high for her in her home blood pressures typically run 110 systolic. Will avoid med management at this time. Her EF did improve based on echocardiogram findings. Instructed to call if any change in symptoms. Will arrange for echo prior to her next visit. Cardiology follow-up in 1 year, sooner if needed. (2) Bradycardia: Code(s): R00.1 - Bradycardia, unspecified Plan: Patient Concern for bradycardia. She monitors her pulse using a smart watch. She has been seen in the ER for reported heart rate in the 40s and No acute findings identified. Holter monitor as above showing sinus rhythm with average heart rate 68. Can not exclude brief AFib. She will continue to monitor heart rate and palpitations. Instructed to notify this office if she is having any increasing heart palpitations. She is already on Coumadin for hyper coagulable state. If has increasing heart palpitations and AFib is confirmed then she may need rate slowing agents. (3) Palpitation: Code(s): R00.2 - Palpitations Plan: As above. Brief episodes of AF not excluded (4) Current use of anticoagulant therapy: Code(s): Z79.01 - [facility] (current) use of anticoagulants Plan: Chronically on Coumadin. Plan Time spent on chart review, documentation, interview assessment Orders: Orders CA echo transthoracic complete 1 Year I42.9 - Cardiomyopathy, unspecified Coding Level of Care Code Est Pt Level 4 (52540) Diagnoses Cardiomyopathy, unspecified type I42.9 Cardiomyopathy type: unspecified Bradycardia R00.1 Palpitation R00.2 Current use of anticoagulant therapy Z79.01 Time Spent (min) 30
== END 2023-08-19 15:56 | disposition home or self-care (01) ==
PROVIDERS: PCP Internal Medicine; Visit Provider Nurse Practitioner Family
DX: I42.9 Cardiomyopathy, unspecified (principal); R00.1 Bradycardia, unspecified; R00.2 Palpitations; Z79.01 Long term (current) use of anticoagulants
CPT/HCPCS: 99214

== ENCOUNTER → 2023-08-19 14:46 | Outpatient (BNVA) | payer OTHER, SELFPAY | PROVIDERS: PCP Internal Medicine; Visit Provider Nurse Practitioner Family ==

== ENCOUNTER 2023-08-28 08:08 | Outpatient (AMB) | payer OTHER, SELFPAY ==
[2023-08-28 08:15] LABS: Prothrombin Time Whole Bld POC 20.9 sec (11.1-13.5); ~PT, ~INR - Anti Coag Clinic 1.7 (0.9-1.1)
--- NOTE | 2023-08-28 08:23 | MHC.OFFVISCO ---
Intake Intake Visit Reasons: Anticoagulation Allergies ciprofloxacin [From CIPRO] Allergy (Severe, Verified 08/28/23 08:10) ANAPHYLAXIS fentanyl [FENTANYL] Allergy (Severe, Verified 08/28/23 08:10) ANAPHYLAXIS levofloxacin [From LEVAQUIN] Allergy (Severe, Verified 08/28/23 08:10) Anaphylaxis morphine [MORPHINE] Allergy (Severe, Verified 08/28/23 08:10) ANAPHYLAXIS oxycodone [OXYCODONE] Allergy (Severe, Verified 08/28/23 08:10) ANAPHYLAXIS Narcotics Allergy (Severe, Uncoded 08/19/23 15:07) Anaphylaxis Medication List - Last Reconciled 08/28/23 by Tiffanie Rosario RN [herbal life multivitamin PO] krill oil 1,000 mg PO DAILY levonorgestrel (Liletta) intrauterine [LIVER HEALTH PO] [TURMERIC PO .PRN] warfarin 10 mg See Protocol PO DAILY warfarin 2.5 mg See Protocol PO DAILY Nursing Note PT.MISSED 1 DOSE THIS WEEK. NO CP,SOB,DIET/MED CHANGES,FALLS OR SX OF BLEEDING. PT.STATES THAT SHE HAS LOST APPROX 35-40 LBS ON A LOW CARB DIET. BOOST WARFARIN TO 5MGM TODAY THEN RESUME USUAL DOSE AND FOLLOW-UP ON 09/08 AFTER RETURNING FROM [place] TO [facility]. PT.WILL INCREASE REDS/FRUIT AND AVOID GREENS X 3 DAYS WILL MOVE ABOUT ON THE PLANE AND WEAR HER COMPRESSION STOCKINGS. GOOD UNDERSTANDING OF DOSING INSTR. 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
== END 2023-08-28 08:29 | disposition home or self-care (01) ==
LOC: HO.ACS 08:08
PROVIDERS: PCP Internal Medicine; Visit Provider Internal Medicine
DX: Z79.01 Long term (current) use of anticoagulants (principal)

== ENCOUNTER → 2023-08-28 08:08 | Outpatient (BNVA) | payer OTHER, SELFPAY | PROVIDERS: PCP Internal Medicine; Visit Provider Internal Medicine | DX: I26.99 Other pulmonary embolism without acute cor pulmonale (principal); Z51.81 Encounter for therapeutic drug level monitoring; Z79.01 Long term (current) use of anticoagulants | CPT/HCPCS: 85610; 99211 ==

== ENCOUNTER 2023-09-09 08:07 | Outpatient (AMB) | payer OTHER, SELFPAY ==
--- NOTE | 2023-09-09 08:31 | MHC.OFFVISCO ---
Intake Intake Visit Reasons: Anticoagulation Allergies ciprofloxacin [From CIPRO] Allergy (Severe, Verified 09/09/23 08:27) ANAPHYLAXIS fentanyl [FENTANYL] Allergy (Severe, Verified 09/09/23 08:27) ANAPHYLAXIS levofloxacin [From LEVAQUIN] Allergy (Severe, Verified 09/09/23 08:27) Anaphylaxis morphine [MORPHINE] Allergy (Severe, Verified 09/09/23 08:27) ANAPHYLAXIS oxycodone [OXYCODONE] Allergy (Severe, Verified 09/09/23 08:27) ANAPHYLAXIS Narcotics Allergy (Severe, Uncoded 09/09/23 08:27) Anaphylaxis Medication List - Last Reconciled 09/09/23 by Lakesha Winkler RN [herbal life multivitamin PO] krill oil 1,000 mg PO DAILY levonorgestrel (Liletta) intrauterine [LIVER HEALTH PO] [TURMERIC PO .PRN] warfarin 10 mg See Protocol PO DAILY warfarin 2.5 mg See Protocol PO DAILY Nursing Note INR 1.8-?? out of therapeutic range of 2-3 Medications and supplements reviewed Patient status: returned from cruise, eating less but more greens, exercising Medications or supplements: no changes Diet: trying to lose weight- eating more greens and proteins Denies any signs and symptoms of bleeding or clotting or unusual bruising Bleeding, bruising, clotting discussed Nutritional guidance given: no greens for 2-3 days, eat a red today Dose: 15mg today then increase weekly dose to 12.5mg x 2, 10mg x 2 F/U INR Date : 2 weeks? Patient verbalizing understanding of instructions given. 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
[2023-09-09 08:32] LABS: ~PT, ~INR - Anti Coag Clinic 1.8 (0.9-1.1)
== END 2023-09-09 08:43 | disposition home or self-care (01) ==
LOC: HO.ACS 08:07
PROVIDERS: PCP Internal Medicine; Visit Provider Internal Medicine
DX: Z79.01 Long term (current) use of anticoagulants (principal)

== ENCOUNTER → 2023-09-09 08:07 | Outpatient (BNVA) | payer OTHER, SELFPAY | PROVIDERS: PCP Internal Medicine; Visit Provider Internal Medicine | DX: I26.99 Other pulmonary embolism without acute cor pulmonale (principal); Z51.81 Encounter for therapeutic drug level monitoring; Z79.01 Long term (current) use of anticoagulants | CPT/HCPCS: 85610; 99211 ==

== ENCOUNTER 2023-09-22 08:10 | Outpatient (AMB) | payer OTHER, SELFPAY ==
[2023-09-22 08:42] LABS: Prothrombin Time Whole Bld POC 23.7 sec (11.1-13.5)
--- NOTE | 2023-09-22 08:52 | MHC.OFFVISCO ---
Intake Intake Visit Reasons: Anticoagulation Allergies ciprofloxacin [From CIPRO] Allergy (Severe, Verified 09/22/23 08:36) ANAPHYLAXIS fentanyl [FENTANYL] Allergy (Severe, Verified 09/22/23 08:36) ANAPHYLAXIS levofloxacin [From LEVAQUIN] Allergy (Severe, Verified 09/22/23 08:36) Anaphylaxis morphine [MORPHINE] Allergy (Severe, Verified 09/22/23 08:36) ANAPHYLAXIS oxycodone [OXYCODONE] Allergy (Severe, Verified 09/22/23 08:36) ANAPHYLAXIS Narcotics Allergy (Severe, Uncoded 09/22/23 08:36) Anaphylaxis Medication List - Last Reconciled 09/22/23 by Ericka Brady RN [herbal life multivitamin PO] krill oil 1,000 mg PO DAILY levonorgestrel (Liletta) intrauterine [LIVER HEALTH PO] [TURMERIC PO .PRN] warfarin 10 mg See Protocol PO DAILY warfarin 2.5 mg See Protocol PO DAILY Nursing Note INR: 2.0 in therapeutic range Medications and supplements reviewed No changes in health, diet, medications, or supplements, Denies any signs and symptoms of bleeding or bruising or clotting. Bleeding, bruising, clotting discussed Nutritional guidance given - REVIEW FOOD LIST WEEKLY, AVOID GREENS TODAY Dose: KEEP SAME 12.5MG X 2 DAYS/ 10MG X 5 DAYS F/U INR: 2 WKS Patient verbalizes understanding of instructions given Anti-Coag Initial Assessment Social Hx Patient Tobacco Use Status: Former Tobacco user Tobacco use type: Cigarette alcohol intake: never Alcohol intake frequency: holidays/special occasions only Coding Level of Care Code Est Patient Level 1 Diagnoses Current use of anticoagulant therapy Z79.01 Assessment & Plan Assessment & Plan (1) Current use of anticoagulant therapy: Code(s): Z79.01 - correction (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 Medications: New [NUTRITIVE HAIR SKIN AND NAILS] PO
== END 2023-09-22 08:54 | disposition home or self-care (01) ==
LOC: HO.ACS 08:10
PROVIDERS: PCP Internal Medicine; Visit Provider Internal Medicine
DX: Z79.01 Long term (current) use of anticoagulants (principal)

== ENCOUNTER → 2023-09-22 08:10 | Outpatient (BNVA) | payer OTHER, SELFPAY | PROVIDERS: PCP Internal Medicine; Visit Provider Internal Medicine | DX: I26.99 Other pulmonary embolism without acute cor pulmonale (principal); Z51.81 Encounter for therapeutic drug level monitoring; Z79.01 Long term (current) use of anticoagulants | CPT/HCPCS: 85610; 99211 ==

== ENCOUNTER 2023-10-06 08:05 | Outpatient (AMB) | payer OTHER, SELFPAY ==
[2023-10-06 08:19] LABS: Prothrombin Time Whole Bld POC 20.4 sec (11.1-13.5); ~PT, ~INR - Anti Coag Clinic 1.7 (0.9-1.1)
--- NOTE | 2023-10-06 08:31 | MHC.OFFVISCO ---
Intake Intake Visit Reasons: Anticoagulation Allergies ciprofloxacin [From CIPRO] Allergy (Severe, Verified 10/06/23 08:09) ANAPHYLAXIS fentanyl [FENTANYL] Allergy (Severe, Verified 10/06/23 08:09) ANAPHYLAXIS levofloxacin [From LEVAQUIN] Allergy (Severe, Verified 10/06/23 08:09) Anaphylaxis morphine [MORPHINE] Allergy (Severe, Verified 10/06/23 08:09) ANAPHYLAXIS oxycodone [OXYCODONE] Allergy (Severe, Verified 10/06/23 08:09) ANAPHYLAXIS Narcotics Allergy (Severe, Uncoded 10/06/23 08:09) Anaphylaxis Medication List - Last Reconciled 10/06/23 by Kacey Falcon, SALOME [herbal life multivitamin PO] krill oil 1,000 mg PO DAILY levonorgestrel (Liletta) intrauterine [LIVER HEALTH PO] [NUTRITIVE HAIR SKIN AND NAILS PO] [TURMERIC PO .PRN] warfarin 10 mg See Protocol PO DAILY warfarin 2.5 mg See Protocol PO DAILY Nursing Note INR 1.7?out of therapeutic range of 2-3 Medications and supplements reviewed Patient status: well Medications or supplements: no change Diet: pt states she is eating more greens and dieting Denies any signs and symptoms of bleeding or clotting or unusual bruising Bleeding, bruising, clotting discussed Nutritional guidance given: to avoid greens today and then balance reds and greens Dose: 15mg today then will increase weekly dose to 12.5mg X 3 days and 10mg X4 days F/U INR Date : 2 weeks Patient verbalizing understanding of instructions given. 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
== END 2023-10-06 08:40 | disposition home or self-care (01) ==
LOC: HO.ACS 08:05
PROVIDERS: PCP Internal Medicine; Visit Provider Internal Medicine
DX: Z79.01 Long term (current) use of anticoagulants (principal)

== ENCOUNTER → 2023-10-06 08:05 | Outpatient (BNVA) | payer OTHER, SELFPAY | PROVIDERS: PCP Internal Medicine; Visit Provider Internal Medicine | DX: I26.99 Other pulmonary embolism without acute cor pulmonale (principal); Z51.81 Encounter for therapeutic drug level monitoring; Z79.01 Long term (current) use of anticoagulants | CPT/HCPCS: 85610; 99211 ==

== ENCOUNTER 2023-10-20 08:11 | Outpatient (AMB) | payer OTHER, SELFPAY ==
[2023-10-20 08:26] LABS: Prothrombin Time Whole Bld POC 29.2 sec (11.1-13.5); ~PT, ~INR - Anti Coag Clinic 2.4 (0.9-1.1)
--- NOTE | 2023-10-20 08:35 | MHC.OFFVISCO ---
Intake Intake Visit Reasons: Anticoagulation Allergies ciprofloxacin [From CIPRO] Allergy (Severe, Verified 10/20/23 08:21) ANAPHYLAXIS fentanyl [FENTANYL] Allergy (Severe, Verified 10/20/23 08:21) ANAPHYLAXIS levofloxacin [From LEVAQUIN] Allergy (Severe, Verified 10/20/23 08:21) Anaphylaxis morphine [MORPHINE] Allergy (Severe, Verified 10/20/23 08:21) ANAPHYLAXIS oxycodone [OXYCODONE] Allergy (Severe, Verified 10/20/23 08:21) ANAPHYLAXIS Narcotics Allergy (Severe, Uncoded 10/20/23 08:21) Anaphylaxis Medication List - Last Reconciled 10/20/23 by Kacey Duke RN [herbal life multivitamin PO] krill oil 1,000 mg PO DAILY levonorgestrel (Liletta) intrauterine [LIVER HEALTH PO] [NUTRITIVE HAIR SKIN AND NAILS PO] warfarin 10 mg See Protocol PO DAILY warfarin 2.5 mg See Protocol PO DAILY Nursing Note Amb to [facility] feeling well, sts she is on special Keto diet and weight is not moving Medications and supplements reviewed, sts she has stopped Tumeric a few months ago as it wasn't helping sts she has a light therapy for her knees and joints which is helping No other changes in health, diet, medications, or supplements, Denies any signs and symptoms of bleeding, bruising, or clotting. INR 2.4 in therapeutic range to continue usual dosing of 12.5mg x 2 days and 10mg x 5 days, discussed with pt that it was noted she was to increase her weekly dosing of warfarin to 12.5mg x 3 days (vs 2 days) and drop 10mg to 4 days (vs 5 days) sts she did not do that I did the increase one day to 15mg then did my usual dosing Nutritional guidance given balance greens and reds in diet, be consistent, sts she is starting an new smoothie with sweta (vitamin C), minerva (raises INR) and 400ml water F/U INR: 2 weeks Patient verbalizes understanding of instructions given Anti-Coag Initial Assessment Social Hx Patient Tobacco Use Status: Former Tobacco user Tobacco use type: Cigarette alcohol intake: never Alcohol intake frequency: holidays/special occasions only Coding Level of Care Code Est Patient Level 1 Diagnoses Current use of anticoagulant therapy Z79.01 Time Spent (min) 15 Results AMB INR Fingerstick AMB INR Fingerstick 2.4 Last Edit by Kacey Duke RN on 10/20/23 08:31 Interface delay Assessment & Plan Assessment & Plan (1) Current use of anticoagulant therapy: Code(s): 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
== END 2023-10-20 09:03 | disposition home or self-care (01) ==
LOC: HO.ACS 08:11
PROVIDERS: PCP Internal Medicine; Visit Provider Internal Medicine
DX: Z79.01 Long term (current) use of anticoagulants (principal)

== ENCOUNTER → 2023-10-20 08:11 | Outpatient (BNVA) | payer OTHER, SELFPAY | PROVIDERS: PCP Internal Medicine; Visit Provider Internal Medicine | DX: I26.99 Other pulmonary embolism without acute cor pulmonale (principal); Z51.81 Encounter for therapeutic drug level monitoring; Z79.01 Long term (current) use of anticoagulants | CPT/HCPCS: 85610; 99211 ==

== ENCOUNTER 2023-11-03 08:04 | Outpatient (AMB) | payer OTHER, SELFPAY ==
[2023-11-03 08:16] LABS: Prothrombin Time Whole Bld POC 25.7 sec (11.1-13.5); ~PT, ~INR - Anti Coag Clinic 2.1 (0.9-1.1)
--- NOTE | 2023-11-03 08:21 | MHC.OFFVISCO ---
Intake Intake Visit Reasons: Anticoagulation Allergies ciprofloxacin [From CIPRO] Allergy (Severe, Verified 11/03/23 08:07) ANAPHYLAXIS fentanyl [FENTANYL] Allergy (Severe, Verified 11/03/23 08:07) ANAPHYLAXIS levofloxacin [From LEVAQUIN] Allergy (Severe, Verified 11/03/23 08:07) Anaphylaxis morphine [MORPHINE] Allergy (Severe, Verified 11/03/23 08:07) ANAPHYLAXIS oxycodone [OXYCODONE] Allergy (Severe, Verified 11/03/23 08:07) ANAPHYLAXIS Narcotics Allergy (Severe, Uncoded 11/03/23 08:07) Anaphylaxis Medication List - Last Reconciled 11/03/23 by Kacey Falcon, SALOME [herbal life multivitamin PO] krill oil 1,000 mg PO DAILY levonorgestrel (Liletta) intrauterine [LIVER HEALTH PO] [NUTRITIVE HAIR SKIN AND NAILS PO] warfarin 10 mg See Protocol PO DAILY warfarin 2.5 mg See Protocol PO DAILY Nursing Note INR: 2.1 in therapeutic range of 2-3 Medications and supplements reviewed No changes in health, diet, medications, or supplements, Denies any signs and symptoms of bleeding or bruising or clotting. Bleeding, bruising, clotting discussed Nutritional guidance given: pt will have a serving of foods that raise the INR today and hold greens today Dose: 10mg X 5 days and 12.5mg X2 days F/U INR: 2 weeks Patient verbalizes understanding of instructions given Anti-Coag Initial Assessment Social Hx Patient Tobacco Use Status: Former Tobacco user Tobacco use type: Cigarette alcohol intake: never Alcohol intake frequency: holidays/special occasions only Coding Level of Care Code Est Patient Level 1 Diagnoses Current use of anticoagulant therapy Z79.01 Assessment & Plan Assessment & Plan (1) Current use of anticoagulant therapy: Code(s): 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
== END 2023-11-03 08:23 | disposition home or self-care (01) ==
LOC: HO.ACS 08:04
PROVIDERS: PCP Internal Medicine; Visit Provider Internal Medicine
DX: Z79.01 Long term (current) use of anticoagulants (principal)

== ENCOUNTER → 2023-11-03 08:04 | Outpatient (BNVA) | payer OTHER, SELFPAY | PROVIDERS: PCP Internal Medicine; Visit Provider Internal Medicine | DX: I26.99 Other pulmonary embolism without acute cor pulmonale (principal); Z51.81 Encounter for therapeutic drug level monitoring; Z79.01 Long term (current) use of anticoagulants | CPT/HCPCS: 85610; 99211 ==

== ENCOUNTER 2023-11-17 08:09 | Outpatient (AMB) | payer OTHER, SELFPAY ==
--- NOTE | 2023-11-17 08:24 | MHC.OFFVISCO ---
Intake Intake Visit Reasons: Anticoagulation Allergies ciprofloxacin [From CIPRO] Allergy (Severe, Verified 11/17/23 08:16) ANAPHYLAXIS fentanyl [FENTANYL] Allergy (Severe, Verified 11/17/23 08:16) ANAPHYLAXIS levofloxacin [From LEVAQUIN] Allergy (Severe, Verified 11/17/23 08:16) Anaphylaxis morphine [MORPHINE] Allergy (Severe, Verified 11/17/23 08:16) ANAPHYLAXIS oxycodone [OXYCODONE] Allergy (Severe, Verified 11/17/23 08:16) ANAPHYLAXIS Narcotics Allergy (Severe, Uncoded 11/17/23 08:16) Anaphylaxis Medication List - Last Reconciled 11/17/23 by Lakesha Winkler RN [herbal life multivitamin PO] krill oil 1,000 mg PO DAILY levonorgestrel (Liletta) intrauterine [LIVER HEALTH PO] [NUTRITIVE HAIR SKIN AND NAILS PO] warfarin 10 mg See Protocol PO DAILY warfarin 2.5 mg See Protocol PO DAILY Nursing Note INR: 2.0- in therapeutic range of 2-3 Medications and supplements reviewed No changes in health, diet, medications, or supplements, Denies any signs and symptoms of bleeding or bruising or clotting. Bleeding, bruising, clotting discussed Nutritional guidance given - increase reds in diet has been eating more salads Dose: 12.5mg x 2, 10mg x 5 F/U INR: 2 weeks Patient verbalizes understanding of instructions given Anti-Coag Initial Assessment Social Hx Patient Tobacco Use Status: Former Tobacco user Tobacco use type: Cigarette alcohol intake: never Alcohol intake frequency: holidays/special occasions only Coding Level of Care Code Est Patient Level 1 Diagnoses Current use of anticoagulant therapy Z79.01 Results AMB INR Fingerstick AMB INR Fingerstick 2.0 Last Edit by Lakesha Winkler RN on 11/17/23 08:27 Assessment & Plan Assessment & Plan (1) Current use of anticoagulant therapy: Code(s): Z79.01 - half-way (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
[2023-11-17 08:32] LABS: Prothrombin Time Whole Bld POC 24.2 sec (11.1-13.5)
== END 2023-11-17 08:44 | disposition home or self-care (01) ==
LOC: HO.ACS 08:09
PROVIDERS: PCP Internal Medicine; Visit Provider Internal Medicine
DX: Z79.01 Long term (current) use of anticoagulants (principal)

== ENCOUNTER → 2023-11-17 08:09 | Outpatient (BNVA) | payer OTHER, SELFPAY | PROVIDERS: PCP Internal Medicine; Visit Provider Internal Medicine | DX: I26.99 Other pulmonary embolism without acute cor pulmonale (principal); Z51.81 Encounter for therapeutic drug level monitoring; Z79.01 Long term (current) use of anticoagulants | CPT/HCPCS: 85610; 99211 ==

== ENCOUNTER 2023-12-01 08:22 | Outpatient (AMB) | payer OTHER, SELFPAY ==
[2023-12-01 08:42] LABS: Prothrombin Time Whole Bld POC 21.4 sec (11.1-13.5); ~PT, ~INR - Anti Coag Clinic 1.8 (0.9-1.1)
--- NOTE | 2023-12-01 08:43 | MHC.OFFVISCO ---
Intake Intake Visit Reasons: Anticoagulation Allergies ciprofloxacin [From CIPRO] Allergy (Severe, Verified 12/01/23 08:23) ANAPHYLAXIS fentanyl [FENTANYL] Allergy (Severe, Verified 12/01/23 08:23) ANAPHYLAXIS levofloxacin [From LEVAQUIN] Allergy (Severe, Verified 12/01/23 08:23) Anaphylaxis morphine [MORPHINE] Allergy (Severe, Verified 12/01/23 08:23) ANAPHYLAXIS oxycodone [OXYCODONE] Allergy (Severe, Verified 12/01/23 08:23) ANAPHYLAXIS Narcotics Allergy (Severe, Uncoded 12/01/23 08:23) Anaphylaxis Medication List - Last Reconciled 12/01/23 by Kacey Falcon, SALOME [herbal life multivitamin PO] krill oil 1,000 mg PO DAILY levonorgestrel (Liletta) intrauterine [LIVER HEALTH PO] [NUTRITIVE HAIR SKIN AND NAILS PO] warfarin 10 mg See Protocol PO DAILY warfarin 2.5 mg See Protocol PO DAILY Nursing Note INR: 1.8 out of therapeutic range of 2-3 Medications and supplements reviewed No changes in health, diet, medications, or supplements, Denies any signs and symptoms of bleeding or bruising or clotting. Bleeding, bruising, clotting discussed Nutritional guidance given: pt does not want to stop greens. She is eating healthier and more active so will increase dose. Dose: increase todays dose to 15mg (12.5mg) then weekly dose increased to 10 mg X 4 days and 12.5mg X 3 days, a weekly increase of 2.5mg F/U INR: 2 weeks Patient verbalizes understanding of instructions given Anti-Coag Initial Assessment Social Hx Patient Tobacco Use Status: Former Tobacco user Tobacco use type: Cigarette alcohol intake: never Alcohol intake frequency: holidays/special occasions only Coding Level of Care Code Est Patient Level 1 Diagnoses Current use of anticoagulant therapy Z79.01 Results AMB INR Fingerstick AMB INR Fingerstick 1.8 Last Edit by Kacey Falcon RN on 12/01/23 08:36 interface delay Assessment & Plan Assessment & Plan (1) Current use of anticoagulant therapy: 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
== END 2023-12-01 08:47 | disposition home or self-care (01) ==
LOC: HO.ACS 08:22
PROVIDERS: PCP Internal Medicine; Visit Provider Internal Medicine
DX: Z79.01 Long term (current) use of anticoagulants (principal)

== ENCOUNTER → 2023-12-01 08:22 | Outpatient (BNVA) | payer OTHER, SELFPAY | PROVIDERS: PCP Internal Medicine; Visit Provider Internal Medicine | DX: I26.99 Other pulmonary embolism without acute cor pulmonale (principal); Z51.81 Encounter for therapeutic drug level monitoring; Z79.01 Long term (current) use of anticoagulants | CPT/HCPCS: 85610; 99211 ==

== ENCOUNTER 2023-12-15 08:09 | Outpatient (AMB) | payer OTHER, SELFPAY ==
[2023-12-15 08:39] LABS: Prothrombin Time Whole Bld POC 15.7 sec (11.1-13.5); ~PT, ~INR - Anti Coag Clinic 1.3 (0.9-1.1)
--- NOTE | 2023-12-15 08:46 | MHC.OFFVISCO ---
Intake Intake Visit Reasons: Anticoagulation Allergies ciprofloxacin [From CIPRO] Allergy (Severe, Verified 12/15/23 08:32) ANAPHYLAXIS fentanyl [FENTANYL] Allergy (Severe, Verified 12/15/23 08:32) ANAPHYLAXIS levofloxacin [From LEVAQUIN] Allergy (Severe, Verified 12/15/23 08:32) Anaphylaxis morphine [MORPHINE] Allergy (Severe, Verified 12/15/23 08:32) ANAPHYLAXIS oxycodone [OXYCODONE] Allergy (Severe, Verified 12/15/23 08:32) ANAPHYLAXIS Narcotics Allergy (Severe, Uncoded 12/15/23 08:32) Anaphylaxis Medication List - Last Reconciled 12/15/23 by Ericka Brady RN [herbal life multivitamin PO] krill oil 1,000 mg PO DAILY levonorgestrel (Liletta) intrauterine [LIVER HEALTH PO] [NUTRITIVE HAIR SKIN AND NAILS PO] warfarin 10 mg See Protocol PO DAILY warfarin 2.5 mg See Protocol PO DAILY Nursing Note INR 1.3 out of therapeutic range Medications and supplements reviewed Patient status: MISSED 2 DOSES - POSSIBLY MORE DUE TO THE INR Medications or supplements: NO CHANGES Diet: TAKES UPPLEMENTS, NO CHANGES AVOID ALL GREENS, EAT ORANGE AND REDS TO HELP RAISE THE INR Denies any signs and symptoms of bleeding or clotting or unusual bruising Bleeding, bruising, clotting discussed Nutritional guidance given: YES Dose: 15MG Fri 10MG UR RECHECK FRIDAY - RECOMMENDED SOONER APPT BUT PT DECLINED BECAUSE SHE HAS TO WORK( pt stated at end of visit she took 15mg friday) F/U INR Date : 12/19/23 ?? PT STATES SHE REFUSES TO TAKE LOVENOX - SHE IS AWARE OF THE RISKS OF CLOTTING, SHE WAS ENC TO TAKE 10MG OF WARFARIN NOW THEN 5MG TONINGHT, STAY HYDRATED WITH WATER AND KEEP MOVING, TO GO TO ER WITH ANY S/SX OF CLOTTING, Patient verbalizing understanding of instructions given. 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
== END 2023-12-15 08:56 | disposition home or self-care (01) ==
LOC: HO.ACS 08:09
PROVIDERS: PCP Internal Medicine; Visit Provider Internal Medicine
DX: Z79.01 Long term (current) use of anticoagulants (principal)

== ENCOUNTER → 2023-12-15 08:09 | Outpatient (BNVA) | payer OTHER, SELFPAY | PROVIDERS: PCP Internal Medicine; Visit Provider Internal Medicine | DX: I26.99 Other pulmonary embolism without acute cor pulmonale (principal); Z51.81 Encounter for therapeutic drug level monitoring; Z79.01 Long term (current) use of anticoagulants | CPT/HCPCS: 85610; 99211 ==

== ENCOUNTER 2023-12-19 08:14 | Outpatient (AMB) | payer OTHER, SELFPAY ==
[2023-12-19 08:48] LABS: Prothrombin Time Whole Bld POC 31.3 sec (11.1-13.5); ~PT, ~INR - Anti Coag Clinic 2.6 (0.9-1.1)
--- NOTE | 2023-12-19 08:55 | MHC.OFFVISCO ---
Intake Intake Visit Reasons: Anticoagulation Allergies ciprofloxacin [From CIPRO] Allergy (Severe, Verified 12/19/23 08:40) ANAPHYLAXIS fentanyl [FENTANYL] Allergy (Severe, Verified 12/19/23 08:40) ANAPHYLAXIS levofloxacin [From LEVAQUIN] Allergy (Severe, Verified 12/19/23 08:40) Anaphylaxis morphine [MORPHINE] Allergy (Severe, Verified 12/19/23 08:40) ANAPHYLAXIS oxycodone [OXYCODONE] Allergy (Severe, Verified 12/19/23 08:40) ANAPHYLAXIS Narcotics Allergy (Severe, Uncoded 12/19/23 08:40) Anaphylaxis Medication List - Last Reconciled 12/19/23 by Ericka Brady RN [herbal life multivitamin PO] krill oil 1,000 mg PO DAILY levonorgestrel (Liletta) intrauterine [LIVER HEALTH PO] [NUTRITIVE HAIR SKIN AND NAILS PO] warfarin 10 mg See Protocol PO DAILY warfarin 2.5 mg See Protocol PO DAILY Nursing Note INR: 2.6 in therapeutic range- TRYING TO EAT HEALTHY AND EXERCISE Medications and supplements reviewed No changes in health, diet, medications, or supplements, Denies any signs and symptoms of bleeding or bruising or clotting. Bleeding, bruising, clotting discussed Nutritional guidance given - EAT A MIX OF FRUITS AND VEGETABLES Dose: 12.5MG X 3 DAYS /15MG X 4 DAYS F/U INR: 1 WEEK Patient verbalizes understanding of instructions given Anti-Coag Initial Assessment Social Hx Patient Tobacco Use Status: Former Tobacco user Tobacco use type: Cigarette alcohol intake: never Alcohol intake frequency: holidays/special occasions only Coding Level of Care Code Est Patient Level 1 Diagnoses Current use of anticoagulant therapy Z79.01 Results AMB INR Fingerstick AMB INR Fingerstick 2.6 Last Edit by Ericka Brady RN on 12/19/23 08:51 MANUAL ENTRY Assessment & Plan Assessment & Plan (1) Current use of anticoagulant therapy: Code(s): Z79.01 - care 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
== END 2023-12-19 08:58 | disposition home or self-care (01) ==
LOC: HO.ACS 08:14
PROVIDERS: PCP Internal Medicine; Visit Provider Internal Medicine
DX: Z79.01 Long term (current) use of anticoagulants (principal)

== ENCOUNTER → 2023-12-19 08:14 | Outpatient (BNVA) | payer OTHER, SELFPAY | PROVIDERS: PCP Internal Medicine; Visit Provider Internal Medicine | DX: I26.99 Other pulmonary embolism without acute cor pulmonale (principal); Z51.81 Encounter for therapeutic drug level monitoring; Z79.01 Long term (current) use of anticoagulants | CPT/HCPCS: 85610; 99211 ==

== ENCOUNTER 2024-01-08 09:13 | Outpatient (AMB) | payer OTHER, SELFPAY ==
--- NOTE | 2024-01-08 09:39 | MHC.OFFVISCO ---
Intake Intake Visit Reasons: Anticoagulation Allergies ciprofloxacin [From CIPRO] Allergy (Severe, Verified 01/08/24 09:24) ANAPHYLAXIS fentanyl [FENTANYL] Allergy (Severe, Verified 01/08/24 09:24) ANAPHYLAXIS levofloxacin [From LEVAQUIN] Allergy (Severe, Verified 01/08/24 09:24) Anaphylaxis morphine [MORPHINE] Allergy (Severe, Verified 01/08/24 09:24) ANAPHYLAXIS oxycodone [OXYCODONE] Allergy (Severe, Verified 01/08/24 09:24) ANAPHYLAXIS Narcotics Allergy (Severe, Uncoded 01/08/24 09:24) Anaphylaxis Medication List - Last Reconciled 01/08/24 by Ericka Brady RN [herbal life multivitamin PO] krill oil 1,000 mg PO DAILY levonorgestrel (Liletta) intrauterine [LIVER HEALTH PO] [NUTRITIVE HAIR SKIN AND NAILS PO] warfarin 10 mg See Protocol PO DAILY warfarin 2.5 mg See Protocol PO DAILY Nursing Note INR: 2.5 in therapeutic range Medications and supplements reviewed No changes in health, diet, medications, or supplements, Denies any signs and symptoms of bleeding or bruising or clotting. Bleeding, bruising, clotting discussed Nutritional guidance given Dose: 12.5MG X 3 DAYS/ 10MG X 4 DAYS F/U INR: 2 WEEKS Patient verbalizes understanding of instructions given Anti-Coag Initial Assessment Social Hx Patient Tobacco Use Status: Former Tobacco user Tobacco use type: Cigarette alcohol intake: never Alcohol intake frequency: holidays/special occasions only Coding Level of Care Code Est Patient Level 1 Diagnoses Current use of anticoagulant therapy Z79.01 Results AMB INR Fingerstick AMB INR Fingerstick 2.5 Last Edit by Ericka Brady RN on 01/08/24 09:36 MANUAL ENTRY Assessment & Plan Assessment & Plan (1) Current use of anticoagulant therapy: 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
[2024-01-08 09:53] LABS: Prothrombin Time Whole Bld POC 29.8 sec (11.1-13.5); ~PT, ~INR - Anti Coag Clinic 2.5 (0.9-1.1)
== END 2024-01-08 09:42 | disposition home or self-care (01) ==
LOC: HO.ACS 09:13
PROVIDERS: PCP Internal Medicine; Visit Provider Internal Medicine
DX: Z79.01 Long term (current) use of anticoagulants (principal)

== ENCOUNTER → 2024-01-08 09:13 | Outpatient (BNVA) | payer OTHER, SELFPAY | PROVIDERS: PCP Internal Medicine; Visit Provider Internal Medicine | DX: I26.99 Other pulmonary embolism without acute cor pulmonale (principal); Z51.81 Encounter for therapeutic drug level monitoring; Z79.01 Long term (current) use of anticoagulants | CPT/HCPCS: 85610; 99211 ==

== ENCOUNTER 2024-01-22 08:06 | Outpatient (AMB) | payer OTHER, SELFPAY ==
--- NOTE | 2024-01-22 08:31 | MHC.OFFVISCO ---
Intake Intake Visit Reasons: Anticoagulation Allergies ciprofloxacin [From CIPRO] Allergy (Severe, Verified 01/22/24 08:24) ANAPHYLAXIS fentanyl [FENTANYL] Allergy (Severe, Verified 01/22/24 08:24) ANAPHYLAXIS levofloxacin [From LEVAQUIN] Allergy (Severe, Verified 01/22/24 08:24) Anaphylaxis morphine [MORPHINE] Allergy (Severe, Verified 01/22/24 08:24) ANAPHYLAXIS oxycodone [OXYCODONE] Allergy (Severe, Verified 01/22/24 08:24) ANAPHYLAXIS Narcotics Allergy (Severe, Uncoded 01/22/24 08:24) Anaphylaxis Medication List - Last Reconciled 01/22/24 by Lakesha Winkler RN [herbal life multivitamin PO] krill oil 1,000 mg PO DAILY levonorgestrel (Liletta) intrauterine [LIVER HEALTH PO] [NUTRITIVE HAIR SKIN AND NAILS PO] warfarin 10 mg See Protocol PO DAILY warfarin 2.5 mg See Protocol PO DAILY Nursing Note INR 1.8-?? out of therapeutic range of 2-3 Medications and supplements reviewed Patient status: pt states has been taking 12.5mg x 2 on mon and wed, 10mg x 5 pt also c.o occ constipation and taking prn Medications or supplements: no changes Diet: same, has been eating pickling cukes Denies any signs and symptoms of bleeding or clotting or unusual bruising Bleeding, bruising, clotting discussed Nutritional guidance given: no greens for 2 days, eat a red today Dose: 15mg today then increase weekly dosing to 12.5mg x 3, 10mg x 4 F/U INR Date : 1 week Patient verbalizing understanding of instructions given. 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
[2024-01-22 08:32] LABS: Prothrombin Time Whole Bld POC 21.4 sec (11.1-13.5); ~PT, ~INR - Anti Coag Clinic 1.8 (0.9-1.1)
== END 2024-01-22 09:15 | disposition home or self-care (01) ==
LOC: HO.ACS 08:06
PROVIDERS: PCP Internal Medicine; Visit Provider Internal Medicine
DX: Z79.01 Long term (current) use of anticoagulants (principal)

== ENCOUNTER → 2024-01-22 08:06 | Outpatient (BNVA) | payer OTHER, SELFPAY | PROVIDERS: PCP Internal Medicine; Visit Provider Internal Medicine | DX: I26.99 Other pulmonary embolism without acute cor pulmonale (principal); Z79.01 Long term (current) use of anticoagulants; Z51.81 Encounter for therapeutic drug level monitoring | CPT/HCPCS: 85610; 99211 ==

== ENCOUNTER 2024-01-28 09:09 | Outpatient (AMB) | payer OTHER, SELFPAY ==
--- NOTE | 2024-01-28 09:25 | MHC.OFFVISCO ---
Intake Intake Visit Reasons: Anticoagulation Allergies ciprofloxacin [From CIPRO] Allergy (Severe, Verified 01/28/24 09:21) ANAPHYLAXIS fentanyl [FENTANYL] Allergy (Severe, Verified 01/28/24 09:21) ANAPHYLAXIS levofloxacin [From LEVAQUIN] Allergy (Severe, Verified 01/28/24 09:21) Anaphylaxis morphine [MORPHINE] Allergy (Severe, Verified 01/28/24 09:21) ANAPHYLAXIS oxycodone [OXYCODONE] Allergy (Severe, Verified 01/28/24 09:21) ANAPHYLAXIS Narcotics Allergy (Severe, Uncoded 01/28/24 09:21) Anaphylaxis Medication List - Last Reconciled 01/28/24 by Lakesha Winkler RN [herbal life multivitamin PO] krill oil 1,000 mg PO DAILY levonorgestrel (Liletta) intrauterine [LIVER HEALTH PO] [NUTRITIVE HAIR SKIN AND NAILS PO] warfarin 10 mg See Protocol PO DAILY warfarin 2.5 mg See Protocol PO DAILY Nursing Note INR: 2.3- in therapeutic range of 2-3 Medications and supplements reviewed No changes in health, diet, medications, or supplements, Denies any signs and symptoms of bleeding or bruising or clotting. Bleeding, bruising, clotting discussed Nutritional guidance given Dose: 12.5mg x 3, 10mg x 4 F/U INR: 2 weeks Patient verbalizes understanding of instructions given Anti-Coag Initial Assessment Social Hx Patient Tobacco Use Status: Former Tobacco user Tobacco use type: Cigarette alcohol intake: never Alcohol intake frequency: holidays/special occasions only Coding Level of Care Code Est Patient Level 1 Diagnoses Current use of anticoagulant therapy Z79.01 Results AMB INR Fingerstick AMB INR Fingerstick 2.3 Last Edit by Lakesha Winkler RN on 01/28/24 10:34 Assessment & Plan Assessment & Plan (1) Current use of anticoagulant therapy: 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
[2024-01-28 09:27] LABS: Prothrombin Time Whole Bld POC 28.2 sec (11.1-13.5); ~PT, ~INR - Anti Coag Clinic 2.3 (0.9-1.1)
== END 2024-01-28 09:34 | disposition home or self-care (01) ==
LOC: HO.ACS 09:09
PROVIDERS: PCP Internal Medicine; Visit Provider Internal Medicine
DX: Z79.01 Long term (current) use of anticoagulants (principal)

== ENCOUNTER → 2024-01-28 09:09 | Outpatient (BNVA) | payer OTHER, SELFPAY | PROVIDERS: PCP Internal Medicine; Visit Provider Internal Medicine | DX: I26.99 Other pulmonary embolism without acute cor pulmonale (principal); Z79.01 Long term (current) use of anticoagulants; Z51.81 Encounter for therapeutic drug level monitoring | CPT/HCPCS: 85610; 99211 ==

== ENCOUNTER 2024-02-09 08:58 | Outpatient (AMB) | payer OTHER, SELFPAY ==
--- NOTE | 2024-02-09 09:04 | MHC.OFFVISCO ---
Intake Intake Visit Reasons: Anticoagulation Allergies ciprofloxacin [From CIPRO] Allergy (Severe, Verified 02/09/24 09:00) ANAPHYLAXIS fentanyl [FENTANYL] Allergy (Severe, Verified 02/09/24 09:00) ANAPHYLAXIS levofloxacin [From LEVAQUIN] Allergy (Severe, Verified 02/09/24 09:00) Anaphylaxis morphine [MORPHINE] Allergy (Severe, Verified 02/09/24 09:00) ANAPHYLAXIS oxycodone [OXYCODONE] Allergy (Severe, Verified 02/09/24 09:00) ANAPHYLAXIS Narcotics Allergy (Severe, Uncoded 02/09/24 09:00) Anaphylaxis Medication List - Last Reconciled 02/09/24 by Kacey Falcon, SALOME [herbal life multivitamin PO] krill oil 1,000 mg PO DAILY levonorgestrel (Liletta) intrauterine [LIVER HEALTH PO] [NUTRITIVE HAIR SKIN AND NAILS PO] warfarin 10 mg See Protocol PO DAILY warfarin 2.5 mg See Protocol PO DAILY Nursing Note INR: 2.1 in therapeutic range of 2-3 Medications and supplements reviewed No changes in health, diet, medications, or supplements, Denies any signs and symptoms of bleeding or bruising or clotting. 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
[2024-02-09 09:05] LABS: Prothrombin Time Whole Bld POC 25.4 sec (11.1-13.5); ~PT, ~INR - Anti Coag Clinic 2.1 (0.9-1.1)
== END 2024-02-09 09:16 | disposition home or self-care (01) ==
LOC: HO.ACS 08:58
PROVIDERS: PCP Internal Medicine; Visit Provider Internal Medicine
DX: Z79.01 Long term (current) use of anticoagulants (principal)

== ENCOUNTER → 2024-02-09 08:58 | Outpatient (BNVA) | payer OTHER, SELFPAY | PROVIDERS: PCP Internal Medicine; Visit Provider Internal Medicine | DX: I26.99 Other pulmonary embolism without acute cor pulmonale (principal); Z79.01 Long term (current) use of anticoagulants; Z51.81 Encounter for therapeutic drug level monitoring | CPT/HCPCS: 85610; 99211 ==

== ENCOUNTER 2024-02-23 09:19 | Outpatient (AMB) | payer OTHER, SELFPAY ==
[2024-02-23 09:28] LABS: Prothrombin Time Whole Bld POC 21.8 sec (11.1-13.5); ~PT, ~INR - Anti Coag Clinic 1.8 (0.9-1.1)
--- NOTE | 2024-02-23 09:38 | MHC.OFFVISCO ---
Intake Intake Visit Reasons: Anticoagulation Allergies ciprofloxacin [From CIPRO] Allergy (Severe, Verified 02/23/24 09:22) ANAPHYLAXIS fentanyl [FENTANYL] Allergy (Severe, Verified 02/23/24 09:22) ANAPHYLAXIS levofloxacin [From LEVAQUIN] Allergy (Severe, Verified 02/23/24 09:22) Anaphylaxis morphine [MORPHINE] Allergy (Severe, Verified 02/23/24 09:22) ANAPHYLAXIS oxycodone [OXYCODONE] Allergy (Severe, Verified 02/23/24 09:22) ANAPHYLAXIS Narcotics Allergy (Severe, Uncoded 02/23/24 09:22) Anaphylaxis Medication List - Last Reconciled 02/23/24 by Kacey Falcon, SALOME [herbal life multivitamin PO] krill oil 1,000 mg PO DAILY levonorgestrel (Liletta) intrauterine [LIVER HEALTH PO] [NUTRITIVE HAIR SKIN AND NAILS PO] warfarin 10 mg See Protocol PO DAILY warfarin 2.5 mg See Protocol PO DAILY Nursing Note INR 1.8?out of therapeutic range 2-3 Medications and supplements reviewed Patient status: well Medications or supplements: no changes Diet: usual diet for pt Denies any signs and symptoms of bleeding or clotting or unusual bruising Bleeding, bruising, clotting discussed Nutritional guidance given: to avoid greens today Dose: 10mg X 4 days and 12.5mg X 3 days F/U INR Date : 2 weeks Patient verbalizing understanding of instructions given. Anti-Coag Initial Assessment Social Hx Patient Tobacco Use Status: Former Tobacco user Tobacco use type: Cigarette alcohol intake: never Alcohol intake frequency: holidays/special occasions only Coding Level of Care Code Est Patient Level 1 Diagnoses Current use of anticoagulant therapy Z79.01 Results AMB INR Fingerstick AMB INR Fingerstick 1.8 Last Edit by Kacey Falcon RN on 02/23/24 09:29 interface delay Assessment & Plan Assessment & Plan (1) Current use of anticoagulant therapy: Code(s): Z79.01 - detention (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
== END 2024-02-23 09:45 | disposition home or self-care (01) ==
LOC: HO.ACS 09:19
PROVIDERS: PCP Internal Medicine; Visit Provider Internal Medicine
DX: Z79.01 Long term (current) use of anticoagulants (principal)

== ENCOUNTER → 2024-02-23 09:19 | Outpatient (BNVA) | payer OTHER, SELFPAY | PROVIDERS: PCP Internal Medicine; Visit Provider Internal Medicine | DX: I26.99 Other pulmonary embolism without acute cor pulmonale (principal); Z79.01 Long term (current) use of anticoagulants; Z51.81 Encounter for therapeutic drug level monitoring | CPT/HCPCS: 85610; 99211 ==

== ENCOUNTER 2024-03-08 09:07 | Outpatient (AMB) | payer OTHER, SELFPAY ==
--- NOTE | 2024-03-08 09:35 | MHC.OFFVISCO ---
Intake Intake Visit Reasons: Anticoagulation Allergies ciprofloxacin [From CIPRO] Allergy (Severe, Verified 03/08/24 09:23) ANAPHYLAXIS fentanyl [FENTANYL] Allergy (Severe, Verified 03/08/24 09:23) ANAPHYLAXIS levofloxacin [From LEVAQUIN] Allergy (Severe, Verified 03/08/24 09:23) Anaphylaxis morphine [MORPHINE] Allergy (Severe, Verified 03/08/24 09:23) ANAPHYLAXIS oxycodone [OXYCODONE] Allergy (Severe, Verified 03/08/24 09:23) ANAPHYLAXIS Narcotics Allergy (Severe, Uncoded 03/08/24 09:23) Anaphylaxis Medication List - Last Reconciled 03/08/24 by Kacey Falcon, SALOME [herbal life multivitamin PO] krill oil 1,000 mg PO DAILY levonorgestrel (Liletta) intrauterine [LIVER HEALTH PO] [NUTRITIVE HAIR SKIN AND NAILS PO] warfarin 10 mg See Protocol PO DAILY warfarin 2.5 mg See Protocol PO DAILY Nursing Note INR 3.6?out of therapeutic range 2-3 Medications and supplements reviewed Patient status: well Medications or supplements: no changes Diet: usual diet for pt Denies any signs and symptoms of bleeding or clotting or unusual bruising Bleeding, bruising, clotting discussed Nutritional guidance given: to have a serving of greens today Dose: decrease today's dose to 10mg (12.5mg) then resume usual dose of 10mg X 4 days and 12.5mg X 3 days F/U INR Date : 2 weeks?? Patient verbalizing understanding of instructions given. 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
[2024-03-08 09:36] LABS: Prothrombin Time Whole Bld POC 43.6 sec (11.1-13.5); ~PT, ~INR - Anti Coag Clinic 3.6 (0.9-1.1)
== END 2024-03-08 09:43 | disposition home or self-care (01) ==
LOC: HO.ACS 09:07
PROVIDERS: PCP Internal Medicine; Visit Provider Internal Medicine
DX: Z79.01 Long term (current) use of anticoagulants (principal)

== ENCOUNTER → 2024-03-08 09:07 | Outpatient (BNVA) | payer OTHER, SELFPAY | PROVIDERS: PCP Internal Medicine; Visit Provider Internal Medicine | DX: I26.99 Other pulmonary embolism without acute cor pulmonale (principal); Z79.01 Long term (current) use of anticoagulants; Z51.81 Encounter for therapeutic drug level monitoring | CPT/HCPCS: 85610; 99211 ==

== ENCOUNTER 2024-03-22 08:53 | Outpatient (AMB) | payer OTHER, SELFPAY ==
--- NOTE | 2024-03-22 09:00 | MHC.OFFVISCO ---
Intake Intake Visit Reasons: Anticoagulation Allergies ciprofloxacin [From CIPRO] Allergy (Severe, Verified 03/22/24 08:55) ANAPHYLAXIS fentanyl [FENTANYL] Allergy (Severe, Verified 03/22/24 08:55) ANAPHYLAXIS levofloxacin [From LEVAQUIN] Allergy (Severe, Verified 03/22/24 08:55) Anaphylaxis morphine [MORPHINE] Allergy (Severe, Verified 03/22/24 08:55) ANAPHYLAXIS oxycodone [OXYCODONE] Allergy (Severe, Verified 03/22/24 08:55) ANAPHYLAXIS Narcotics Allergy (Severe, Uncoded 03/22/24 08:55) Anaphylaxis Medication List - Last Reconciled 03/22/24 by Lakesha Winkler RN [herbal life multivitamin PO] krill oil 1,000 mg PO DAILY levonorgestrel (Liletta) intrauterine [LIVER HEALTH PO] [NUTRITIVE HAIR SKIN AND NAILS PO] warfarin 10 mg See Protocol PO DAILY warfarin 2.5 mg See Protocol PO DAILY Nursing Note INR: 2.6- in therapeutic range of 2-3 Medications and supplements reviewed- no changes No changes in health, diet, medications, or supplements, Denies any signs and symptoms of bleeding or bruising or clotting. 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
[2024-03-22 09:01] LABS: Prothrombin Time Whole Bld POC 31.1 sec (11.1-13.5); ~PT, ~INR - Anti Coag Clinic 2.6 (0.9-1.1)
== END 2024-03-22 09:15 | disposition home or self-care (01) ==
LOC: HO.ACS 08:53
PROVIDERS: PCP Internal Medicine; Visit Provider Internal Medicine
DX: Z79.01 Long term (current) use of anticoagulants (principal)

== ENCOUNTER → 2024-03-22 08:53 | Outpatient (BNVA) | payer OTHER, SELFPAY | PROVIDERS: PCP Internal Medicine; Visit Provider Internal Medicine | DX: I26.99 Other pulmonary embolism without acute cor pulmonale (principal); Z79.01 Long term (current) use of anticoagulants; Z51.81 Encounter for therapeutic drug level monitoring | CPT/HCPCS: 85610; 99211 ==

== ENCOUNTER 2024-04-05 08:42 | Outpatient (AMB) | payer OTHER, SELFPAY ==
[2024-04-05 09:00] LABS: Prothrombin Time Whole Bld POC 37.8 sec (11.1-13.5); ~PT, ~INR - Anti Coag Clinic 3.1 (0.9-1.1)
--- NOTE | 2024-04-05 09:08 | MHC.OFFVISCO ---
Intake Intake Visit Reasons: Anticoagulation Allergies ciprofloxacin [From CIPRO] Allergy (Severe, Verified 04/05/24 08:52) ANAPHYLAXIS fentanyl [FENTANYL] Allergy (Severe, Verified 04/05/24 08:52) ANAPHYLAXIS levofloxacin [From LEVAQUIN] Allergy (Severe, Verified 04/05/24 08:52) Anaphylaxis morphine [MORPHINE] Allergy (Severe, Verified 04/05/24 08:52) ANAPHYLAXIS oxycodone [OXYCODONE] Allergy (Severe, Verified 04/05/24 08:52) ANAPHYLAXIS Narcotics Allergy (Severe, Uncoded 04/05/24 08:52) Anaphylaxis Medication List - Last Reconciled 04/05/24 by Ericka Brady RN amoxicillin-pot clavulanate 875-125 mg 1 tab PO BID [herbal life multivitamin PO] krill oil 1,000 mg PO DAILY levonorgestrel (Liletta) intrauterine [LIVER HEALTH PO] [NUTRITIVE HAIR SKIN AND NAILS PO] warfarin 10 mg See Protocol PO DAILY warfarin 2.5 mg See Protocol PO DAILY Nursing Note INR: 3.1 in therapeutic range Medications and supplements reviewed No changes in health, diet, medications, or supplements, Denies any signs and symptoms of bleeding or bruising or clotting. Bleeding, bruising, clotting discussed Nutritional guidance given - REVIEW FOOD LIST WEEKLY - ESPECIALLY DURING THE HOLIDAYS Dose: 12.5 MG X 3 DAYS/ 10MG X 4 DAYS F/U INR: 2 WEEKS Patient verbalizes understanding of instructions given Anti-Coag Initial Assessment Social Hx Patient Tobacco Use Status: Former Tobacco user Tobacco use type: Cigarette alcohol intake: never Alcohol intake frequency: holidays/special occasions only Questionnaires HAS-BLED Does the patient had uncontrolled Hypertension?: No Does the patient have renal disease?: No Does the patient have liver disease?: No Does the patient have a history of stroke?: No Has the patient had major bleeding or predisposition to bleeding?: No Does the patient have labile INRs?: Yes Is the patient over 65 years of age?: No Is the patient on medications that gives them a predisposition to bleeding?: Yes Does the patient use alcohol?: Yes HAS-BLED Score: 3 CHADSVASC Age: <65 Gender: Female Does the patient have a history of CHF?: No Does the patient have a history of Hypertension?: No Does the patient have a history of Stroke/TIA/Thromboembolism?: Yes Does the patient have a history of Vascular Disease (prior ME, PAD or aortic plaque)?: No Does the patient have a history of Diabetes?: No CHADS VACS Score: 3 Amanda Prediction Score Rsk VTE Active Cancer: No Previous VTE, excluding superficial vein thrombosis: Yes Reduced mobility: No With-in last month Trauma and/or Surgery: No Elderly 70 year or older: No Heart and/or Respiratory Failure: No Acute Myocardial infarction and/or Ischemic Stroke: No Acute Infection and/or Rheumatologic Disorder: Yes (HX OF LYME DISEASE ) Obesity (BMI 30 or greater): Yes Ongoing Hormonal Treatment: No Score: 5 Amanda Score less than 4; Low Risk of VTE Amanda Score 4 or greater; High Risk of VTE Coding Level of Care Code Est Patient Level 1 Diagnoses Current use of anticoagulant therapy Z79.01 Results AMB INR Fingerstick AMB INR Fingerstick 3.1 Last Edit by Ericka Brady RN on 04/05/24 09:03 manual entry Assessment & Plan Assessment & Plan (1) Current use of anticoagulant therapy: Code(s): Z79.01 - alf (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
== END 2024-04-05 09:19 | disposition home or self-care (01) ==
LOC: HO.ACS 08:42
PROVIDERS: PCP Internal Medicine; Visit Provider Internal Medicine
DX: Z79.01 Long term (current) use of anticoagulants (principal)

== ENCOUNTER → 2024-04-05 08:42 | Outpatient (BNVA) | payer OTHER, SELFPAY | PROVIDERS: PCP Internal Medicine; Visit Provider Internal Medicine | DX: I26.99 Other pulmonary embolism without acute cor pulmonale (principal); Z79.01 Long term (current) use of anticoagulants; Z51.81 Encounter for therapeutic drug level monitoring | CPT/HCPCS: 85610; 99211 ==

== ENCOUNTER 2024-04-19 08:49 | Outpatient (AMB) | payer OTHER, SELFPAY ==
[2024-04-19 08:55] LABS: Prothrombin Time Whole Bld POC 30.9 sec (11.1-13.5); ~PT, ~INR - Anti Coag Clinic 2.6 (0.9-1.1)
--- NOTE | 2024-04-19 09:07 | MHC.OFFVISCO ---
Intake Intake Visit Reasons: Anticoagulation Allergies ciprofloxacin [From CIPRO] Allergy (Severe, Verified 04/19/24 08:50) ANAPHYLAXIS fentanyl [FENTANYL] Allergy (Severe, Verified 04/19/24 08:50) ANAPHYLAXIS levofloxacin [From LEVAQUIN] Allergy (Severe, Verified 04/19/24 08:50) Anaphylaxis morphine [MORPHINE] Allergy (Severe, Verified 04/19/24 08:50) ANAPHYLAXIS oxycodone [OXYCODONE] Allergy (Severe, Verified 04/19/24 08:50) ANAPHYLAXIS Narcotics Allergy (Severe, Uncoded 04/19/24 08:50) Anaphylaxis Medication List - Last Reconciled 04/19/24 by Kacey Falcon, SALOME amoxicillin-pot clavulanate 875-125 mg 1 tab PO BID [herbal life multivitamin PO] krill oil 1,000 mg PO DAILY levonorgestrel (Liletta) intrauterine [LIVER HEALTH PO] [NUTRITIVE HAIR SKIN AND NAILS PO] warfarin 10 mg See Protocol PO DAILY warfarin 2.5 mg See Protocol PO DAILY Nursing Note INR: 2.6 in therapeutic range of 2-3 Medications and supplements reviewed Pt states she was positive for Covid last week with symptoms of sore throat, headache and sinus congestion. No changes in diet, medications, or supplements, Denies any signs and symptoms of bleeding or bruising or clotting. Bleeding, bruising, clotting discussed Nutritional guidance given Dose: 10mg X 4 days and 12.5mg X 3 days F/U INR: 2 weeks Patient verbalizes understanding of instructions given Anti-Coag Initial Assessment Social Hx Patient Tobacco Use Status: Former Tobacco user Tobacco use type: Cigarette alcohol intake: never Alcohol intake frequency: holidays/special occasions only Coding Level of Care Code Est Patient Level 1 Diagnoses Current use of anticoagulant therapy Z79.01 Results AMB INR Fingerstick AMB INR Fingerstick 2.6 Last Edit by Kacey Falcon RN on 04/19/24 08:55 interface delay Assessment & Plan Assessment & Plan (1) Current use of anticoagulant therapy: 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
== END 2024-04-19 09:09 | disposition home or self-care (01) ==
LOC: HO.ACS 08:49
PROVIDERS: PCP Internal Medicine; Visit Provider Internal Medicine
DX: Z79.01 Long term (current) use of anticoagulants (principal)

== ENCOUNTER → 2024-04-19 08:49 | Outpatient (BNVA) | payer OTHER, SELFPAY | PROVIDERS: PCP Internal Medicine; Visit Provider Internal Medicine | DX: I26.99 Other pulmonary embolism without acute cor pulmonale (principal); Z79.01 Long term (current) use of anticoagulants; Z51.81 Encounter for therapeutic drug level monitoring | CPT/HCPCS: 85610; 99211 ==

== ENCOUNTER 2024-05-04 08:57 | Outpatient (AMB) | payer OTHER, SELFPAY ==
[2024-05-04 09:08] LABS: Prothrombin Time Whole Bld POC 30.9 sec (11.1-13.5); ~PT, ~INR - Anti Coag Clinic 2.6 (0.9-1.1)
--- OUTSIDE RECORDS SUMMARY | 2024-05-04 09:12 | XMS_ITS | Continuity of Care Document ---
Author Organization [facility] ter Address [address] [place] [id number]- Care Team Providers Care Security Compliance Engineer Name Role Phone Reji Evans MD Primary Care Physician [id number] Date(s): 04/14/24 - 04/14/[address] [address]- Discharge Disposition: A-D/C Home Attending Physician: Vinny Barragan DO Admitting Physician: Vinny Barragan DO Referring Physician: Not on Staff, Referring MD Encounter Type: Disch ES Allergies, Adverse Reactions, Alerts Substance Criticality Severity Reaction Reaction Severity Status ciprofloxacin High criticality Severe anaphylaxis Active morphine High criticality Severe anaphylaxis A ctive Percocet 1 High criticality Severe anaphylaxis to Oxycodone portion throat swells Active Bee Stings High criticality Severe anaphylaxis (unknown bee type) Active Coconut Oil Low criticality Mild hives Ac tive fentaNYL High criticality Severe anaphylaxis A ctive oxyCODONE High criticality Severe anaphylaxis A ctive levoFLOXacin High criticality Severe anaphylaxis Active 1per Rn on admisson, pt is able to take acetaminophen Medications Krill Oil Capsules Krill Oil Capsules, 500 mg, By Mouth, Daily, Maintenance, 06/23/23 5:06:00 PM EST, Supply Start Date: 06/23/23 Status: Ordered Repeat number: 1 Liletta 52 mg intrauterine device 1 each = 52 mg, Intrauterine, Once, for delivery [place] [facility] on 07/03/23 at 0900, # 1 each, 0 Refills, Soft Stop, 06/24/23 5:10:00 PM EST, [facility], Partial fill upon patient request if the prescription is for a schedule II opioid drug., 167.7, cm, 06/24/23 12:32:00 EST, Height, 87.3, kg, 06/24/23 12:12:00 EST, Dry Weight Start Date: 06/24/23 Status: Ordered Quantity: 1.0 Unit: each Repeat number: 1 Liver Health Capsule Liver Health Capsule, 2 capsules, By Mouth, Daily, Maintenance, 06/23/23 5:08:00 PM EST, Supply Start Date: 06/23/23 Status: Ordered Repeat number: 1 Multivitamin 1 tablet, By Mouth, Daily, Maintenance, 06/23/23 5:07:00 PM EST Start Date: 06/23/23 Status: Ordered Repeat number: 1 Provera 10 mg oral tablet 20 mg, 2, tablet, By Mouth, Every 12 hours, # 36 tablet, Refills 0, Tot. Refills 0, Maintenance, 06/24/23 2:20:00 PM EST, Route to Pharmacy Electronically, [id number], Partial fill upon patient request if the prescription is for a schedule II opioid drug., 167.7, cm, 06/24/23 12:32:00 EST, Height, 87.3, kg, 06/24/23 12:12:00 EST, Dry Weight Start Date: 06/24/23 Status: Ordered Quantity: 36.0 Unit: tablet Repeat number: 1 warfarin 10 mg oral tablet 1 tablet = 10 mg, By Mouth, Daily, All days except Mondays when dose is 12.5 mg, Maintenance, 06/23/23 5:04:00 PM EST Start Date: 06/23/23 Status: Ordered Repeat number: 1 Problem List Condition Confirmation Course Effective Dates Status H ealth Status Informant Abnormal uterine bleeding (AUB) Confirmed Active Anticoagulated on warfarin Confirmed Active COVID-19 1 Confirmed 04/14/24 Active Hx bilateral pulmonary embolism, summer 2018 Confirmed Active Hx of deep venous thrombosis, summer 2017 Right lower leg after knee surgery tx with 2 mo of anticoagulation, recurrence vs. remnant summer 2018, now on chronic anticoagulation Confirmed Active Lupus anticoagulant positive Confirmed Active Obese class I Confirmed Active 1Problem added by Discern Expert Results Orders for Microbiology Reports Name Date Group A Strep Screen and Culture 4 Microbiology Reports TEST:Group A Strep Screen and Culture STATUS:Auth (Verified) BODY SITE: SOURCE:THROAT COLLECTED DATE/TIME:04/14/24 12:53 PM Group A Strep Screen and Culture SPECIMEN DESCRIPTION : THROAT SWAB SWAB SPECIAL REQUESTS : NONE DIRECT EXAM : RAPID GROUP A ANTIGEN RESULT IS NEGATIVE, CULTURE SENT TO REFERENCE LAB CULTURE : RAPID GROUP A ANTIGEN RESULT IS NEGATIVE, CULTURE SENT TO REFERENCE LAB REPORT STATUS : FINAL 04/14/2024 Radiology Reports * Exam Date Time Procedure Performing Provider Status 04/14/24 2:[address] Lumbar Spine W/ Contrast Kasia Klein; Auth (Verified) Notes: (CT Lumbar Spine W/ Contrast) Reason For Exam: Back Pain RESULT: CT Lumbar Spine W/ Contrast CT Abd/Pelvis W/ IV Contrast Only, CT Lumbar Spine W/ Contrast Hx of Present Illness: cough low back pain; Reason: Other:; bilat flank pain, fever; Clinical Question(s): Calculus; r o pyelo, stone; Order Comment: TECHNIQUE: Spiral CT through the abdomen and pelvis with IV contrast formatted in 3 planes. 100 cc of Isovue 300 was administered intravenously. This study was performed without oral contrast. Weight-based protocol using automatic tube modulation was used to optimize exposure parameters. COMPARISON: None. FINDINGS: Clinical Support Nurse View Findings, Lines and Tubes: None. Visualized Chest: Lung bases are clear. No pleural effusion. The heart is normal in size. No pericardial effusion. Diaphragm: Normal. Liver: Normal. Gallbladder: No CT evidence of gallbladder pathology. Bile ducts: No biliary ductal dilation. Spleen: 5 mm hypodensity inferior lateral aspect of the spleen, statistically a cyst. Pancreas: Normal. Adrenal glands: Normal. Kidneys and ureters: No hydronephrosis, stones, or suspicious masses. Small hypodensities that are too small to characterize are noted, requiring no dedicated follow up. Bladder: Normal. Reproductive organs: Enlarged fibroid uterus. IUD noted with a horizontal position and tilted towards the left. No adnexal mass. Right adnexal cyst measuring 2.2 cm. Stomach, small bowel, and large bowel: A few scattered colonic diverticula without diverticulitis. Appendix: Normal. Peritoneum and retroperitoneum: No ascites or pneumoperitoneum. No omental or mesenteric lesions. Lymph nodes: No enlarged lymph nodes. Blood vessels: Enlarged right inguinal lymph nodes, partially imaged with largest node visualized measuring up to 2.5 x 1.5 cm. Abdominal and pelvic wall: Small fat-containing umbilical hernia. Bones: Mild right hip osteoarthritis. No pelvic fracture. Vertebral body heights are maintained. Intervertebral disc heights are maintained. No significant central stenosis. Moderate facet arthropathy at L4-L5 and L5-S1. IMPRESSION: 1. No renal calculi or CT evidence of pyelonephritis. 2. IUD appears malpositioned by CT, pelvic ultrasound is recommended for better evaluation. 3. 2.1 cm right adnexal cyst, this can be evaluated at the time of pelvic ultrasound. 4. Facet arthropathy at L4-L5 and L5-S1 without significant central stenosis or neural foraminal narrowing. WSN: [id number] Ordering Physician: Kenisha Kc Dictated By: Ricky Koehler MD Dictated Date/Time: 04/14/24 3:03 pm Reviewed By: Ricky Koehler MD Signed By: Ricky Koehler MD Signed Date/Time: 04/14/24 3:03 pm Transcribed By: MILVIA Transcribed Date/Time: 04/14/24 2:45 pm * Exam Date Time Procedure Performing Provider Status 04/14/24 2:[address] Abd/Pelvis W/ IV Contrast Only Kasia Klein; Auth (Verified) Notes: (CT Abd/Pelvis W/ IV Contrast Only) Reason For Exam: bilat flank pain, fever;Other: RESULT: CT Abd/Pelvis W/ IV Contrast Only CT Abd/Pelvis W/ IV Contrast Only, CT Lumbar Spine W/ Contrast Hx of Present Illness: cough low back pain; Reason: Other:; bilat flank pain, fever; Clinical Question(s): Calculus; r o pyelo, stone; Order Comment: TECHNIQUE: Spiral CT through the abdomen and pelvis with IV contrast formatted in 3 planes. 100 cc of Isovue 300 was administered intravenously. This study was performed without oral contrast. Weight-based protocol using automatic tube modulation was used to optimize exposure parameters. COMPARISON: None. FINDINGS: Clinical Support Nurse View Findings, Lines and Tubes: None. Visualized Chest: Lung bases are clear. No pleural effusion. The heart is normal in size. No pericardial effusion. Diaphragm: Normal. Liver: Normal. Gallbladder: No CT evidence of gallbladder pathology. Bile ducts: No biliary ductal dilation. Spleen: 5 mm hypodensity inferior lateral aspect of the spleen, statistically a cyst. Pancreas: Normal. Adrenal glands: Normal. Kidneys and ureters: No hydronephrosis, stones, or suspicious masses. Small hypodensities that are too small to characterize are noted, requiring no dedicated follow up. Bladder: Normal. Reproductive organs: Enlarged fibroid uterus. IUD noted with a horizontal position and tilted towards the left. No adnexal mass. Right adnexal cyst measuring 2.2 cm. Stomach, small bowel, and large bowel: A few scattered colonic diverticula without diverticulitis. Appendix: Normal. Peritoneum and retroperitoneum: No ascites or pneumoperitoneum. No omental or mesenteric lesions. Lymph nodes: No enlarged lymph nodes. Blood vessels: Enlarged right inguinal lymph nodes, partially imaged with largest node visualized measuring up to 2.5 x 1.5 cm. Abdominal and pelvic wall: Small fat-containing umbilical hernia. Bones: Mild right hip osteoarthritis. No pelvic fracture. Vertebral body heights are maintained. Intervertebral disc heights are maintained. No significant central stenosis. Moderate facet arthropathy at L4-L5 and L5-S1. IMPRESSION: 1. No renal calculi or CT evidence of pyelonephritis. 2. IUD appears malpositioned by CT, pelvic ultrasound is recommended for better evaluation. 3. 2.1 cm right adnexal cyst, this can be evaluated at the time of pelvic ultrasound. 4. Facet arthropathy at L4-L5 and L5-S1 without significant central stenosis or neural foraminal narrowing. WSN: [id number] Ordering Physician: eKnisha Kc Dictated By: Ricky Koehler MD Dictated Date/Time: 04/14/24 3:03 pm Reviewed By: Ricky Koehler MD Signed By: Ricky Koehler MD Signed Date/Time: 04/14/24 3:03 pm Transcribed By: MILVIA Transcribed Date/Time: 04/14/24 2:45 pm * Exam Date Time Procedure Performing Provider Status 04/14/24 12:57 PM Chest 2 Views Fronta l and Lat Drew Elizabeth; Auth (Verified) Notes: (Chest 2 Views Frontal and Lat) Reason For Exam: Shortness of Breath, Fever;Other: RESULT: Chest 2 Views Frontal and Lat Chest 2 Views Frontal and Lat Hx of Present Illness: cough low back pain; Reason: Other:; Shortness of Breath, Fever; Clinical Question(s): Pneumonia COMPARISON: CTA chest 04/19/2015. FINDINGS: LINES AND TUBES: None. LUNGS AND PLEURA: No focal consolidation. Normal pulmonary vascularity. No pleural effusion. No pneumothorax. HEART, MEDIASTINUM AND JONAH: Heart is normal in size. Normal mediastinal and hilar contour. BONES AND SOFT TISSUES: No acute abnormality. IMPRESSION: No focal consolidation or pleural effusion. WSN: [id number] Ordering Physician: Kenisha Kc Dictated By: Yisel Gandara MD Dictated Date/Time: 04/14/24 1:12 pm Reviewed By: Yisel Gandara MD Signed By: Yisel Gandara MD Signed Date/Time: 04/14/24 1:12 pm Transcribed By: MILVIA Transcribed Date/Time: 04/14/24 1:03 pm Vital Signs Most recent to oldest [Reference Range]: 1 2 3 Height 169 cm (04/14/24 3:50 PM) 169 cm (04/14/24 1:26 PM) 169 cm (04/14/24 10:57 AM) Weight 86 kg (04/14/24 3:50 PM) 86 kg (04/14/24 1:26 PM) 86 kg (04/14/24 10:57 AM) Oxygen Saturation [94-100 %] 100 % (04/14/24 3:50 PM) 100 % (04/14/24 1:26 PM) 99 % (04/14/24 10:57 AM) Pulse Rate [55-90 bpm] 72 bpm (04/14/24 3:50 PM) 66 bpm (04/14/24 1:26 PM) 83 bpm (04/14/24 10:57 AM) Body Mass Index [18.5-24.99 kg/m2] 30.11 kg/m2 *>HHI* (04/14/24 3:50 PM) 30.11 kg/m2 *>HHI* (04/14/24 1:26 PM) 30.11 kg/m2 *>HHI* (04/14/24 10:57 AM) Blood Pressure [90-138/55-84 mm Hg] 128/83mm Hg (04/14/24 3:50 PM) 118/65mm Hg (04/14/24 1:26 PM) 129/80mm Hg (04/14/24 10:57 AM) Respiratory Rate [16-30 br/min] 18 br/min (04/14/24 3:50 PM) 17 br/min (04/14/24 1:26 PM) 18 br/min (04/14/24 10:57 AM) Temperature [96.8-100.4 DegF] 97.6 DegF (04/14/24 1: PM) 98.2 DegF (04/14/24 10:57 AM) Mode of Delivery (Oxygen) Room air (04/14/24 3:50 PM) Room air (04/14/24 1:26 PM) Room air (04/14/24 10:57 AM) Blood pressure sites Arm, left (04/14/24 3:50 PM) Arm, left (04/14/24 1:26 PM) Arm, right (04/14/24 10:57 AM) Temperature Route Oral (04/14/24 1:26 PM) Oral (04/14/24 10:57 AM) Dry Weight 86 kg (04/14/24 3:50 PM) 86 kg (04/14/24 1:26 PM) 86 kg (04/14/24 10:57 AM) Weight Obtained Via Patient/family state d (04/14/24 10:57 AM) Dry Weight Obtained Via Patient/family s tated (04/14/24 10:57 AM) Social History Social History Type Response Smoking Status Never smoker entered on: 04/18/15 Sex Sex Representation Female (finding) EKG study * Event Display: ECG 12-Lead Authored Date: Please click on pdf link to open report * Event Display: ECG 12-Lead Authored Date: Ventricular Rate: 77 BPM Atrial Rate: 77 BPM P-R Interval: 182 ms QRS Duration: 80 ms Q-T Interval: 364 ms QTC Calculation(Bazett): 411 ms P Hargill: 54 degrees R Hargill: 19 degrees T Hargill: 27 degrees Normal sinus rhythm Possible Left atrial enlargement Borderline ECG When compared with ECG of 21-Sep-2018 11:33, No significant change was found Confirmed by LIBERTAD MORA MD ([id number]) on 04/14/2024 2:34:46 PM [place]: LIBERTAD MORA MD * Event Display: EKG Authored Date: Note * Kenisha Goldman: PERFORM Event Display: Patient Education Leaflets Authored Date: Understanding Coronavirus Disease 2019 COVID-19 ?? 323 Understanding Coronavirus Disease 2019 (COVID-19) Coronavirus disease 2019 (COVID-19) is a respiratory illness. It's caused by a new (novel) coronavirus called SARS-CoV-2. There are many types of coronavirus. Coronaviruses are a very common cause ofbronchitis. They may sometimes cause lung infection (pneumonia). Symptoms can range from mild to severe respiratory illness. These viruses are also found in some animals. COVID-19 was first found in people in [facility], in late 2018. In 2020, several cases of COVID-19 have been confirmed in the [place] COVID-19 is a rapidly- emerging infectious disease. This means that scientists are actively researching it.??There are information updates regularly. Public health officials are working to find the source. How the virus spreads is not yet fully understood, but it seems to spread and infect people fairly easily. Some people who have been infected in an area may be unsure how or where they became infected. The virus may be spread through droplets of fluid that a person coughs or sneezes into the air. It may be spread if you touch a surface with virus on it, such as a handle or object, and then touch your eyes, nose, or mouth. For the latest information, visit the CDC website at www.cdc.gov/coronavirus/2019-ncov. Or call 725-PYV-RPDM (418-384-4815). What are the symptoms of COVID-19? Some people have no symptoms or mild symptoms. Symptoms may appear 2 to 14 days after contact with the virus. Symptoms can include: ??? Fever ??? Coughing ??? Trouble breathing What are possible complications from COVID-19? In many cases, this virus can cause infection (pneumonia) in both lungs. In some cases, this can cause . Certain people are at higher risk for complications. This includes older adults and people with serious chronic health conditions such as heart or lung disease or diabetes. How is COVID-19 diagnosed? Your healthcare provider will ask about your symptoms. He or she will also ask about your recent travel and contact with sick people. If your healthcare provider thinks you may have COVID-19, he or she will work closely with your local health department on testing. Follow all instructions from yourhealthcare provider. COVID-19 is diagnosed by: ??? Nose and throat swab. A cotton-tipped swab is wiped inside your nose or throat. This is done tocheck for viruses in your nasal mucus. ??? Sputum culture. A small sample of mucus coughed from your lungs (sputum) is collected if you have a cough. It's checked for the virus. How is COVID-19 treated? There is currently no medicine to treat the virus. Treatment is done to help your body while it fights the virus. This is known as supportive care. Supportive care may include: ??? Pain medicine. These include acetaminophen and ibuprofen. They are used to help ease pain and reduce fever. ??? Bed rest. This helps your body fight the illness. For severe illness, you may need to stay in the hospital. Care during severe illness may include: ??? IV (intravenous) fluids. These are given through a vein to help keep your body hydrated. ??? Oxygen. Supplemental oxygen or ventilation with a breathing machine (ventilator) may be given. This isdone so you get enough oxygen in your body. Are you at risk for COVID-19? You are at risk for infection if you ???ve been to a place where people have been sick with this virus or if there are people with COVID-19 in your area. You are at risk if you: ??? Recently traveled to an area with a COVID-19 outbreak ??? Had contact with a sick person who recently traveled to an area with a COVID-19 outbreak ??? Had contact with a person who was diagnosed with or who may have COVID-19 ?? How can COVID-19 be prevented? There is no vaccine yet. The best prevention is to not have contact with the virus. The CDC advisesthat people should not travel to areas where there are COVID-19 outbreaks right now for any reason that is not urgent. For the most current CDC travel advisories, visit the CDC website at www.cdc.gov/ coronavirus/2019-ncov/travelers. ? To help prevent spreading the infection, wash your hands often, or use an alcohol-based hand bank note designer. The CDC advises that you should not wear a facemask if you are not sick. Prepare and protect yourself from COVID-19: ??? Wash your hands often with soap and clean, running water for at least 20 seconds. ??? If you don't have access to soap and water, use an alcohol-based hand bank note designer often. Make sure it has at least 60% alcohol. ??? Don't touch your eyes, nose, or mouth unless you have clean hands. ??? As much as possible, don't touch high-touch public surfaces such as doorknobs. Don't shake hands. ??? Clean home and work surfaces often with disinfectant. ??? Cough or sneeze into a tissue, then throw the tissue into the trash. If you don't have tissues, cough or sneeze into the bend of your elbow. ??? Stay informed about COVID-19 in your area. Follow local instructions about being in public. Be aware of events in your community that may be postponed or canceled such as school and sporting events. You may be advised not to attend public gatherings. You will be advised to stay about 6 feet from others as much as possible. This is called social distancing. ??? Check your home supplies. Consider keeping a 2-week supply of medicines, food, and other needed household items. ??? Make a plan for chil dcare, work, and ways to stay in touch with others. Know who will help you if you get sick. ??? Don't be around people who are sick. ??? There is no evidence right now that animals spread SARS-CoV-2.But it's always a good idea to wash your hands after touching any animals. Don't touch animals thatmay be sick. ??? Don ???t share eating or drinking utensils with sick people. ??? Don???t kiss someone who is sick. If you were in an area with COVID-19 in the last 14 days: ??? Call your healthcare provider and follow all instructions. Your activities and where you go maybe restricted for up to 2 weeks. ??? Take your temperature every morning and evening for at least 14 days. This is to check for fever. Keep a record of the readings. ??? Watch for symptoms of the virus. Call your provider if you have symptoms. Call your provider first before going to any clinic or hospital. ??? Stay home if you are sick for any reason. If you are sick with COVID-19 symptoms: ??? Stay home. Call your healthcare provider and tell them you have symptoms of COVID-19. Do this before going to any hospital or clinic. Follow your provider's instructions. You may be advised to isolate yourself at home. This is called self-isolation or self-quarantine. ??? Don ???t panic. Keep in mind that other illnesses can cause similar symptoms. ??? Stay away from work, school, and public places. Limit physical contact with family members. Limit visitors. Don't kiss anyone or share eating or drinking utensils. Clean surfaces you touch with disinfectant. This is to help prevent the virus from spreading. ??? Cough or sneeze into a tissue, then throw away the tissue in the trash. If youdon't have tissues, cough or sneeze into the bend of your elbow. ??? Wear a facemask only if you have symptoms ??? If you need to go in to a hospital or clinic, expect that the healthcare staff will wear protective equipment such as masks, gowns, gloves, and eye protection. You may be put in a separate room. This is to prevent the possible virus from spreading. ??? Tell the healthcare staff about recent travel. This includes local travel on public transport. Staff may need to find other people you have been in contact with. ??? Follow all instructions the healthcare staff give you. If you have been diagnosed with COVID-19 ??? Stay home. Don ???t leave your home unless you need to get medical care. Don't go to work, school, or public areas. Don't use public transportation or taxis. ??? Follow all instructions from yourhealthcare provider. Call your healthcare provider???s office before going. They can prepare and give you instructions. This will help prevent the virus from spreading. ??? If you need to go to a hospital or clinic, expect that the healthcare staff will wear protective equipment such as masks, gowns, gloves, and eye protection. You may be put in a separate room. This is to prevent the possible virus from spreading. ??? Wear a face mask. This is to protect other people from your germs. If you are not able to wear a mask, your caregivers should. ??? Stay away from other people in your home. ???Limit contact with pets and animals. Although there are no reports of pets getting sick with COVID-19, consider limiting contact with pets until more is known. ??? Don???t share household items or food. ??? Cover your face with a tissue when you cough or sneeze. Throw the tissue away. Then wash your hands. ??? Wash your hands often. If you are caring for a sick person: ??? Follow all instructions from healthcare staff. ??? Wash your hands often. ??? Wear protective clothing as advised. ??? Make sure the sick person wears a mask. If they can't wear a mask, don't stay in the same room with the person. If you must be in the same room, wear a facemask. ??? Keep trackof the sick person???s symptoms. ??? Clean surfaces, fabrics, and laundry thoroughly. ??? Keep other people and pets away from the sick person. When to call your healthcare provider Call your healthcare provider: ??? If you ???ve recently traveled or have been in an area with COVID-19 and have symptoms ??? If you have been diagnosed with COVID-19 and your symptoms are worse ? [id number] [employer]. [address], [place] [address]. All rights reserved. This information is not intended as a substitute for professional medical care. Always follow your healthcare professional's instructions. ?? Patient Care team information Care Team Personnel Name: Reji Evans MD Position: Reference Physician Member Role: PCP Address: [address] [place] [address] [place] [id number]- Telecom: Name: Tina Sanabria RN Position: S RN Member Role: Primary Care Nurse Name: Marquise Franco III, RN Position: [facility] RN Member Role: Primary Care Nurse Name: Ammy Urbina RN Position: S RN Member Role: Primary Care Nurse Care Team Related Persons Name: CHELSI BROWN Insurance Providers Guarantor name: ANALI DESAIE Health Plan Information #: 1 Payer: [employer] Member Number: [id number] Policy Number: NA Group Number: [id number] Health Plan Information #: 2 Payer: [employer] Member Number: [id number] Policy Number: NA Group Number: [id number]
--- NOTE | 2024-05-04 09:15 | MHC.OFFVISCO ---
Intake Intake Visit Reasons: Anticoagulation Allergies ciprofloxacin [From CIPRO] Allergy (Severe, Verified 05/04/24 09:03) ANAPHYLAXIS fentanyl [FENTANYL] Allergy (Severe, Verified 05/04/24 09:03) ANAPHYLAXIS levofloxacin [From LEVAQUIN] Allergy (Severe, Verified 05/04/24 09:03) Anaphylaxis morphine [MORPHINE] Allergy (Severe, Verified 05/04/24 09:03) ANAPHYLAXIS oxycodone [OXYCODONE] Allergy (Severe, Verified 05/04/24 09:03) ANAPHYLAXIS Narcotics Allergy (Severe, Uncoded 05/04/24 09:03) Anaphylaxis Medication List - Last Reconciled 05/04/24 by Kacey Falcon, SALOME amoxicillin-pot clavulanate 875-125 mg 1 tab PO BID [herbal life multivitamin PO] krill oil 1,000 mg PO DAILY levonorgestrel (Liletta) intrauterine [LIVER HEALTH PO] [NUTRITIVE HAIR SKIN AND NAILS PO] warfarin 10 mg See Protocol PO DAILY warfarin 2.5 mg See Protocol PO DAILY Nursing Note INR: 2.6 in therapeutic range of 2-3 Medications and supplements reviewed No changes in health, diet, medications, or supplements, Denies any signs and symptoms of bleeding or bruising or clotting. Bleeding, bruising, clotting discussed Nutritional guidance given Dose: 10mg X 4 days and 12.5mg X 3 days F/U INR: 2 weeks Patient verbalizes understanding of instructions given Anti-Coag Initial Assessment Social Hx Patient Tobacco Use Status: Former Tobacco user Tobacco use type: Cigarette alcohol intake: never Alcohol intake frequency: holidays/special occasions only Coding Level of Care Code Est Patient Level 1 Diagnoses Current use of anticoagulant therapy Z79.01 Assessment & Plan Assessment & Plan (1) Current use of anticoagulant therapy: Code(s): Z79.01 - residential (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
== END 2024-05-04 09:19 | disposition home or self-care (01) ==
LOC: HO.ACS 08:57
PROVIDERS: PCP Internal Medicine; Visit Provider Internal Medicine
DX: Z79.01 Long term (current) use of anticoagulants (principal)

== ENCOUNTER → 2024-05-04 08:57 | Outpatient (BNVA) | payer OTHER, SELFPAY | PROVIDERS: PCP Internal Medicine; Visit Provider Internal Medicine | DX: I26.99 Other pulmonary embolism without acute cor pulmonale (principal); Z79.01 Long term (current) use of anticoagulants; Z51.81 Encounter for therapeutic drug level monitoring | CPT/HCPCS: 85610; 99211 ==

== ENCOUNTER 2024-05-31 08:58 | Outpatient (AMB) | payer OTHER, SELFPAY ==
[2024-05-31 09:27] LABS: Prothrombin Time Whole Bld POC 23.8 sec (11.1-13.5)
--- NOTE | 2024-05-31 09:34 | MHC.OFFVISCO ---
Intake Intake Visit Reasons: Anticoagulation Allergies ciprofloxacin [From CIPRO] Allergy (Severe, Verified 05/31/24 09:17) ANAPHYLAXIS fentanyl [FENTANYL] Allergy (Severe, Verified 05/31/24 09:17) ANAPHYLAXIS levofloxacin [From LEVAQUIN] Allergy (Severe, Verified 05/31/24 09:17) Anaphylaxis morphine [MORPHINE] Allergy (Severe, Verified 05/31/24 09:17) ANAPHYLAXIS oxycodone [OXYCODONE] Allergy (Severe, Verified 05/31/24 09:17) ANAPHYLAXIS Narcotics Allergy (Severe, Uncoded 05/31/24 09:17) Anaphylaxis Medication List - Last Reconciled 05/31/24 by Ericka Brady RN albuterol sulfate 90 mcg/actuation 2 puffs inhalation Q6H PRN benzonatate 100 mg PO TID [herbal life multivitamin PO] krill oil 1,000 mg PO DAILY levonorgestrel (Liletta) intrauterine [LIVER HEALTH PO] warfarin 10 mg See Protocol PO DAILY warfarin 2.5 mg See Protocol PO DAILY Nursing Note INR: 2.0 in therapeutic range Medications and supplements reviewed s/p flu and strep - feeling better - still h as lingering cough, legs ache , was on augmentin -states didnt help much Denies any signs and symptoms of bleeding or bruising or clotting. Bleeding, bruising, clotting discussed Nutritional guidance given - avoid greens today, then resume usual diet, have a food today to help raise the INR Dose: due to hx of dvt booster dose this week only 12.5mg Tuesdau then resume 12.5mg mwf/ 10mg x 4 days F/U INR: 2 weeks Patient verbalizes understanding of instructions given Anti-Coag Initial Assessment Social Hx Patient Tobacco Use Status: Former Tobacco user Tobacco use type: Cigarette alcohol intake: never Alcohol intake frequency: holidays/special occasions only Coding Level of Care Code Est Patient Level 1 Diagnoses Current use of anticoagulant therapy Z79.01 Results AMB INR Fingerstick AMB INR Fingerstick 2.0 Last Edit by Ericka Brady RN on 05/31/24 09:29 MANUAL ENTRY Assessment & Plan Assessment & Plan (1) Current use of anticoagulant therapy: 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
== END 2024-05-31 09:38 | disposition home or self-care (01) ==
LOC: HO.ACS 08:58
PROVIDERS: PCP Internal Medicine; Visit Provider Internal Medicine
DX: Z79.01 Long term (current) use of anticoagulants (principal)

== ENCOUNTER → 2024-05-31 08:58 | Outpatient (BNVA) | payer OTHER, SELFPAY | PROVIDERS: PCP Internal Medicine; Visit Provider Internal Medicine | DX: I26.99 Other pulmonary embolism without acute cor pulmonale (principal); Z79.01 Long term (current) use of anticoagulants; Z51.81 Encounter for therapeutic drug level monitoring | CPT/HCPCS: 85610; 99211 ==

== ENCOUNTER 2024-06-14 11:21 | Outpatient (AMB) | payer BC, SELFPAY ==
--- NOTE | 2024-06-14 11:54 | MHC.OFFVISCO ---
Intake Intake Visit Reasons: Anticoagulation Allergies ciprofloxacin [From CIPRO] Allergy (Severe, Verified 06/14/24 11:39) ANAPHYLAXIS fentanyl [FENTANYL] Allergy (Severe, Verified 06/14/24 11:39) ANAPHYLAXIS levofloxacin [From LEVAQUIN] Allergy (Severe, Verified 06/14/24 11:39) Anaphylaxis morphine [MORPHINE] Allergy (Severe, Verified 06/14/24 11:39) ANAPHYLAXIS oxycodone [OXYCODONE] Allergy (Severe, Verified 06/14/24 11:39) ANAPHYLAXIS Narcotics Allergy (Severe, Uncoded 06/14/24 11:39) Anaphylaxis Medication List - Last Reconciled 06/14/24 by Ericka Brady RN albuterol sulfate 90 mcg/actuation 2 puffs inhalation Q6H PRN benzonatate 100 mg PO TID [herbal life multivitamin PO] krill oil 1,000 mg PO DAILY levonorgestrel (Liletta) intrauterine [LIVER HEALTH PO] warfarin 10 mg See Protocol PO DAILY warfarin 2.5 mg See Protocol PO DAILY Nursing Note INR: 2.5 in therapeutic range Medications and supplements reviewed Feeling better since Upper Resp Virus - still occ has cough no major changes in diet, No medications, or supplement changes Denies any signs and symptoms of bleeding or bruising or clotting. Bleeding, bruising, clotting discussed Nutritional guidance given Dose: 12.5MG X 3 DAYS/ 10MG X 4 DAYS F/U INR: 2 WEEKS Patient verbalizes understanding of instructions given Anti-Coag Initial Assessment Social Hx Patient Tobacco Use Status: Former Tobacco user Tobacco use type: Cigarette alcohol intake: never Alcohol intake frequency: holidays/special occasions only Coding Level of Care Code Est Patient Level 1 Diagnoses Current use of anticoagulant therapy Z79.01 Results AMB INR Fingerstick AMB INR Fingerstick 2.5 Last Edit by Ericka Brady, SALOME on 06/14/24 11:52 MANUAL ENTRY Assessment & Plan Assessment & Plan (1) Current use of anticoagulant therapy: Code(s): Z79.01 - [facility] (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
[2024-06-14 12:39] LABS: Prothrombin Time Whole Bld POC 30.5 sec (11.1-13.5); ~PT, ~INR - Anti Coag Clinic 2.5 (0.9-1.1)
== END 2024-06-14 11:57 | disposition home or self-care (01) ==
LOC: HO.ACS 11:21
PROVIDERS: PCP Internal Medicine; Visit Provider Internal Medicine
DX: Z79.01 Long term (current) use of anticoagulants (principal)

== ENCOUNTER → 2024-06-14 11:21 | Outpatient (BNVA) | payer BC, SELFPAY | PROVIDERS: PCP Internal Medicine; Visit Provider Internal Medicine | DX: I26.99 Other pulmonary embolism without acute cor pulmonale (principal); Z79.01 Long term (current) use of anticoagulants; Z51.81 Encounter for therapeutic drug level monitoring | CPT/HCPCS: 85610; 99211 ==

== ENCOUNTER 2024-06-29 08:07 | Outpatient (AMB) | payer OTHER, SELFPAY ==
[2024-06-29 08:16] LABS: Prothrombin Time Whole Bld POC 24.3 sec (11.1-13.5)
--- NOTE | 2024-06-29 08:23 | MHC.OFFVISCO ---
Intake Intake Visit Reasons: Anticoagulation Allergies ciprofloxacin [From CIPRO] Allergy (Severe, Verified 06/29/24 08:09) ANAPHYLAXIS fentanyl [FENTANYL] Allergy (Severe, Verified 06/29/24 08:09) ANAPHYLAXIS levofloxacin [From LEVAQUIN] Allergy (Severe, Verified 06/29/24 08:09) Anaphylaxis morphine [MORPHINE] Allergy (Severe, Verified 06/29/24 08:09) ANAPHYLAXIS oxycodone [OXYCODONE] Allergy (Severe, Verified 06/29/24 08:09) ANAPHYLAXIS Narcotics Allergy (Severe, Uncoded 06/29/24 08:09) Anaphylaxis Medication List - Last Reconciled 06/29/24 by Kacey Duke RN benzonatate 100 mg PO TID [herbal life multivitamin PO] krill oil 1,000 mg PO DAILY levonorgestrel (Liletta) intrauterine [LIVER HEALTH PO] warfarin 10 mg See Protocol PO DAILY warfarin 2.5 mg See Protocol PO DAILY Nursing Note Amb to [facility] feeling well Medications and supplements reviewed, EMAR updated as sts she does not use inhaler at all gives me thrush No other changes in health, diet, medications, or supplements, Denies any signs and symptoms of bleeding, bruising, or clotting. Bleeding, bruising, clotting discussed INR: 2.0 just in therapeutic range, sts she probably missed a dose last week , sts she is going away to [place] to ski next week Dose: due to most micky missed dose will increase dose today only to 12.5mg then resume usual dosing tomorrow for weekly 12.5mg x 3 days and 10mg x 4 days Nutritional guidance given no greens today, reds to help raise then balance F/U INR: 3 weeks scheduled for 07/14 (returns home 07/13) Patient verbalizes understanding of instructions given Anti-Coag Initial Assessment Social Hx Patient Tobacco Use Status: Former Tobacco user Tobacco use type: Cigarette alcohol intake: never Alcohol intake frequency: holidays/special occasions only Coding Level of Care Code Est Patient Level 1 Diagnoses Current use of anticoagulant therapy Z79.01 Time Spent (min) 15 Assessment & Plan Assessment & Plan (1) Current use of anticoagulant therapy: 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
== END 2024-06-29 09:34 | disposition home or self-care (01) ==
LOC: HO.ACS 08:07
PROVIDERS: PCP Internal Medicine; Visit Provider Internal Medicine
DX: Z79.01 Long term (current) use of anticoagulants (principal)

== ENCOUNTER → 2024-06-29 08:07 | Outpatient (BNVA) | payer OTHER, SELFPAY | PROVIDERS: PCP Internal Medicine; Visit Provider Internal Medicine | DX: I26.99 Other pulmonary embolism without acute cor pulmonale (principal); Z79.01 Long term (current) use of anticoagulants; Z51.81 Encounter for therapeutic drug level monitoring | CPT/HCPCS: 85610; 99211 ==

== ENCOUNTER 2024-07-14 08:56 | Outpatient (AMB) | payer OTHER, SELFPAY ==
[2024-07-14 09:03] LABS: Prothrombin Time Whole Bld POC 34.6 sec (11.1-13.5); ~PT, ~INR - Anti Coag Clinic 2.9 (0.9-1.1)
--- NOTE | 2024-07-14 09:08 | MHC.OFFVISCO ---
Intake Intake Visit Reasons: Anticoagulation Allergies ciprofloxacin [From CIPRO] Allergy (Severe, Verified 07/14/24 08:58) ANAPHYLAXIS fentanyl [FENTANYL] Allergy (Severe, Verified 07/14/24 08:58) ANAPHYLAXIS levofloxacin [From LEVAQUIN] Allergy (Severe, Verified 07/14/24 08:58) Anaphylaxis morphine [MORPHINE] Allergy (Severe, Verified 07/14/24 08:58) ANAPHYLAXIS oxycodone [OXYCODONE] Allergy (Severe, Verified 07/14/24 08:58) ANAPHYLAXIS Narcotics Allergy (Severe, Uncoded 06/29/24 08:09) Anaphylaxis Medication List - Last Reconciled 07/14/24 by Tiffanie Rosario RN benzonatate 100 mg PO TID [herbal life multivitamin PO] krill oil 1,000 mg PO DAILY levonorgestrel (Liletta) intrauterine [LIVER HEALTH PO] warfarin 10 mg See Protocol PO DAILY warfarin 2.5 mg See Protocol PO DAILY Nursing Note NO CP,SOB,DIET/MED CHANGES,FALLS OR SX OF BLEEDING. CONTINUE PRESENT DOSE AND FOLLOW-UP IN 3 WEEKS. GOOD UNDERSTANDING OF DOSING INSTR. Anti-Coag Initial Assessment Social Hx Patient Tobacco Use Status: Former Tobacco user Tobacco use type: Cigarette alcohol intake: never Alcohol intake frequency: holidays/special occasions only Coding Level of Care Code Est Patient Level 1 Diagnoses Current use of anticoagulant therapy Z79.01 Assessment & Plan Assessment & Plan (1) Current use of anticoagulant therapy: Code(s): Z79.01 - residential (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
== END 2024-07-14 09:16 | disposition home or self-care (01) ==
LOC: HO.ACS 08:56
PROVIDERS: PCP Internal Medicine; Visit Provider Internal Medicine
DX: Z79.01 Long term (current) use of anticoagulants (principal)

== ENCOUNTER → 2024-07-14 08:56 | Outpatient (BNVA) | payer OTHER, SELFPAY | PROVIDERS: PCP Internal Medicine; Visit Provider Internal Medicine | DX: I26.99 Other pulmonary embolism without acute cor pulmonale (principal); Z79.01 Long term (current) use of anticoagulants; Z51.81 Encounter for therapeutic drug level monitoring | CPT/HCPCS: 85610; 99211 ==

== ENCOUNTER 2024-08-20 13:42 | Outpatient (AMB) | payer OTHER, SELFPAY ==
[2024-08-20 14:19] LABS: Prothrombin Time Whole Bld POC 24.1 sec (11.1-13.5)
--- NOTE | 2024-08-20 14:26 | MHC.OFFVISCO ---
Intake Intake Visit Reasons: Anticoagulation Allergies ciprofloxacin [From CIPRO] Allergy (Severe, Verified 08/20/24 14:14) ANAPHYLAXIS fentanyl [FENTANYL] Allergy (Severe, Verified 08/20/24 14:14) ANAPHYLAXIS levofloxacin [From LEVAQUIN] Allergy (Severe, Verified 08/20/24 14:14) Anaphylaxis morphine [MORPHINE] Allergy (Severe, Verified 08/20/24 14:14) ANAPHYLAXIS oxycodone [OXYCODONE] Allergy (Severe, Verified 08/20/24 14:14) ANAPHYLAXIS Narcotics Allergy (Severe, Uncoded 08/20/24 14:14) Anaphylaxis Medication List - Last Reconciled 08/20/24 by Kacey Falcon RN benzonatate 100 mg PO TID [herbal life multivitamin PO] krill oil 1,000 mg PO DAILY levonorgestrel (Liletta) intrauterine [LIVER HEALTH PO] warfarin 10 mg See Protocol PO DAILY warfarin 2.5 mg See Protocol PO DAILY Nursing Note INR: 2.0 in therapeutic range of 2-3 Pt well. States she started a new diet and has increased her greens intake significantly. Because of this she has increased her dose of warfarin. Pt did not consult with [facility]. She has been taking warfarin 12.5mg daily. Last dose on record by [facility] has her taking 10mg X 4 days and 12.5mg X 3 days. Medications and supplements reviewed No changes in health, diet, medications, or supplements, Denies any signs and symptoms of bleeding or bruising or clotting. Bleeding, bruising, clotting discussed Nutritional guidance given: food list discussed. Pt has a good knowledge base for foods that raise and foods that lower the INR Dose: will keep her on 12.5mg daily F/U INR: 2 weeks Patient verbalizes understanding of instructions given Anti-Coag Initial Assessment Social Hx Patient Tobacco Use Status: Former Tobacco user Tobacco use type: Cigarette alcohol intake: never Alcohol intake frequency: holidays/special occasions only Coding Level of Care Code Est Patient Level 1 Diagnoses Current use of anticoagulant therapy Z79.01 Assessment & Plan Assessment & Plan (1) Current use of anticoagulant therapy: Code(s): Z79.01 - half-way (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
== END 2024-08-20 14:31 | disposition home or self-care (01) ==
LOC: HO.ACS 13:42
PROVIDERS: PCP Internal Medicine; Visit Provider Internal Medicine Medical Oncology
DX: Z79.01 Long term (current) use of anticoagulants (principal)

== ENCOUNTER → 2024-08-20 13:42 | Outpatient (BNVA) | payer OTHER, SELFPAY | PROVIDERS: PCP Internal Medicine; Visit Provider Internal Medicine Medical Oncology | DX: I26.99 Other pulmonary embolism without acute cor pulmonale (principal); Z79.01 Long term (current) use of anticoagulants; Z51.81 Encounter for therapeutic drug level monitoring | CPT/HCPCS: 85610; 99211 ==

== ENCOUNTER 2024-09-16 09:12 | Outpatient (AMB) | payer OTHER, SELFPAY ==
[2024-09-16 09:41] LABS: ~PT, ~INR - Anti Coag Clinic 2.3 (0.9-1.1)
--- NOTE | 2024-09-16 09:47 | MHC.OFFVISCO ---
Intake Intake Visit Reasons: Anticoagulation Allergies ciprofloxacin [From CIPRO] Allergy (Severe, Verified 09/16/24 09:36) ANAPHYLAXIS fentanyl [FENTANYL] Allergy (Severe, Verified 09/16/24 09:36) ANAPHYLAXIS levofloxacin [From LEVAQUIN] Allergy (Severe, Verified 09/16/24 09:36) Anaphylaxis morphine [MORPHINE] Allergy (Severe, Verified 09/16/24 09:36) ANAPHYLAXIS oxycodone [OXYCODONE] Allergy (Severe, Verified 09/16/24 09:36) ANAPHYLAXIS Narcotics Allergy (Severe, Uncoded 09/16/24 09:36) Anaphylaxis Medication List - Last Reconciled 09/16/24 by Ericka Brady RN [herbal life multivitamin PO PRN] krill oil 1,000 mg PO DAILY levonorgestrel (Liletta) intrauterine [LIVER HEALTH PO] warfarin 10 mg See Protocol PO DAILY warfarin 2.5 mg See Protocol PO DAILY Nursing Note INR: 2.3 in therapeutic range Medications and supplements reviewed Pt is exercising more and eating more protein and fruits and vegetables Denies any signs and symptoms of bleeding or bruising or clotting. Bleeding, bruising, clotting discussed Nutritional guidance given Dose: 12.5mg daily F/U INR: 2 weeks Patient verbalizes understanding of instructions given Anti-Coag Initial Assessment Social Hx Patient Tobacco Use Status: Former Tobacco user Tobacco use type: Cigarette alcohol intake: never Alcohol intake frequency: holidays/special occasions only Coding Level of Care Code Est Patient Level 1 Diagnoses Current use of anticoagulant therapy Z79.01 Assessment & Plan Assessment & Plan (1) Current use of anticoagulant therapy: Code(s): Z79.01 - correction (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
== END 2024-09-16 09:49 | disposition home or self-care (01) ==
LOC: HO.ACS 09:12
PROVIDERS: PCP Internal Medicine; Visit Provider Internal Medicine Medical Oncology
DX: Z79.01 Long term (current) use of anticoagulants (principal)

== ENCOUNTER → 2024-09-16 09:12 | Outpatient (BNVA) | payer OTHER, SELFPAY | PROVIDERS: PCP Internal Medicine; Visit Provider Internal Medicine Medical Oncology | DX: I26.99 Other pulmonary embolism without acute cor pulmonale (principal); Z51.81 Encounter for therapeutic drug level monitoring; Z79.01 Long term (current) use of anticoagulants | CPT/HCPCS: 85610; 99211 ==

== ENCOUNTER 2024-09-30 09:09 | Outpatient (AMB) | payer OTHER, SELFPAY ==
--- NOTE | 2024-09-30 09:20 | MHC.OFFVISCO ---
Intake Intake Visit Reasons: Anticoagulation Allergies ciprofloxacin [From CIPRO] Allergy (Severe, Verified 09/30/24 09:16) ANAPHYLAXIS fentanyl [FENTANYL] Allergy (Severe, Verified 09/30/24 09:16) ANAPHYLAXIS levofloxacin [From LEVAQUIN] Allergy (Severe, Verified 09/30/24 09:16) Anaphylaxis morphine [MORPHINE] Allergy (Severe, Verified 09/30/24 09:16) ANAPHYLAXIS oxycodone [OXYCODONE] Allergy (Severe, Verified 09/30/24 09:16) ANAPHYLAXIS propofol Allergy (Intermediate, Verified 09/30/24 09:16) Nausea and Vomiting Narcotics Allergy (Severe, Uncoded 09/30/24 09:16) Anaphylaxis Medication List - Last Reconciled 09/30/24 by Lakesha Winkler RN [herbal life multivitamin PO PRN] krill oil 1,000 mg PO DAILY levonorgestrel (Liletta) intrauterine [LIVER HEALTH PO] warfarin 10 mg See Protocol PO DAILY warfarin 2.5 mg See Protocol PO DAILY Nursing Note INR: 2.1- in therapeutic range of 2-3 Medications and supplements reviewed- no changes No changes in health, diet, medications, or supplements, Denies any signs and symptoms of bleeding or bruising or clotting. Bleeding, bruising, clotting discussed Nutritional guidance given Dose: 12.5mg x 7 F/U INR: 2 weeks Patient verbalizes understanding of instructions given propofol allergy added per pt request Anti-Coag Initial Assessment Social Hx Patient Tobacco Use Status: Former Tobacco user Tobacco use type: Cigarette alcohol intake: never Alcohol intake frequency: holidays/special occasions only Coding Level of Care Code Est Patient Level 1 Diagnoses Current use of anticoagulant therapy Z79.01 Results AMB INR Fingerstick AMB INR Fingerstick 2.1 Last Edit by Lakesha Winkler RN on 09/30/24 09:23 interface delay Assessment & Plan Assessment & Plan (1) Current use of anticoagulant therapy: Code(s): Z79.01 - [facility] (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
[2024-10-01 08:04] LABS: Prothrombin Time Whole Bld POC 25.3 sec (11.1-13.5); ~PT, ~INR - Anti Coag Clinic 2.1 (0.9-1.1)
== END 2024-09-30 09:33 | disposition home or self-care (01) ==
LOC: HO.ACS 09:09
PROVIDERS: PCP Internal Medicine; Visit Provider Internal Medicine Medical Oncology
DX: Z79.01 Long term (current) use of anticoagulants (principal)

== ENCOUNTER → 2024-09-30 09:09 | Outpatient (BNVA) | payer OTHER, SELFPAY | PROVIDERS: PCP Internal Medicine; Visit Provider Internal Medicine Medical Oncology | DX: I26.99 Other pulmonary embolism without acute cor pulmonale (principal); Z51.81 Encounter for therapeutic drug level monitoring; Z79.01 Long term (current) use of anticoagulants | CPT/HCPCS: 85610; 99211 ==

== ENCOUNTER 2024-11-25 10:32 | Outpatient (AMB) | payer OTHER, SELFPAY ==
--- NOTE | 2024-11-25 10:54 | MHC.OFFVISCO ---
Intake Intake Visit Reasons: Anticoagulation Allergies ciprofloxacin (From CIPRO) Allergy (Severe, Verified 11/25/24 10:33) ANAPHYLAXIS fentanyl (FENTANYL) Allergy (Severe, Verified 11/25/24 10:33) ANAPHYLAXIS levofloxacin (From LEVAQUIN) Allergy (Severe, Verified 11/25/24 10:33) Anaphylaxis morphine (MORPHINE) Allergy (Severe, Verified 11/25/24 10:33) ANAPHYLAXIS oxycodone (OXYCODONE) Allergy (Severe, Verified 11/25/24 10:33) ANAPHYLAXIS propofol Allergy (Intermediate, Verified 11/25/24 10:33) Nausea and Vomiting Narcotics Allergy (Severe, Uncoded 11/25/24 10:33) Anaphylaxis Medication List - Last Reconciled 11/25/24 by Ericka Brady RN [herbal life multivitamin PO PRN] krill oil 1,000 mg PO DAILY levonorgestrel (Liletta) intrauterine [LIVER HEALTH PO] warfarin 10 mg See Protocol PO DAILY warfarin 2.5 mg See Protocol PO DAILY Nursing Note INR 1.4 out of therapeutic range Medications and supplements reviewed Patient status: pt add on for today, she states she has had a busy schedule and was unable to make her INR appts last month, she states her legs have been cramping at night - it was explained that it could be due to low INR, electrolyte imbalance, dehydration or other conditions and to discuss with PCP, no reddnes, swelling or pain- just cramping at night. Medications or supplements: no changes Diet: may try a minerva turmeric tea to help with arthartic type pain Denies any signs and symptoms of bleeding or clotting or unusual bruising Bleeding, bruising, clotting discussed Nutritional guidance given: avoid greens x 3 days, eat foods to help raise the INR Dose: 15mg today and tomorrow / 12.5mg daily F/U INR Date: 5 days ?? Patient verbalizing understanding of instructions given. Anti-Coag Initial Assessment Social Hx Patient Tobacco Use Status: Former Tobacco user Tobacco use type: Cigarette alcohol intake: never Alcohol intake frequency: holidays/special occasions only Coding Level of Care Code Est Patient Level 1 Diagnoses Current use of anticoagulant therapy Z79.01 Results AMB INR Fingerstick AMB INR Fingerstick 1.4 Last Edit by Ericka Brady RN on 11/25/24 10:42 manual entry Assessment & Plan Assessment & Plan (1) Current use of anticoagulant therapy: Code(s): Z79.01 - alf (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
[2024-11-25 11:04] LABS: Prothrombin Time Whole Bld POC 16.2 sec (11.1-13.5); ~PT, ~INR - Anti Coag Clinic 1.4 (0.9-1.1)
== END 2024-11-25 11:03 | disposition home or self-care (01) ==
LOC: HO.ACS 10:32
PROVIDERS: PCP Internal Medicine Medical Oncology; Visit Provider Internal Medicine Medical Oncology
DX: Z79.01 Long term (current) use of anticoagulants (principal)

== ENCOUNTER → 2024-11-25 10:32 | Outpatient (BNVA) | payer OTHER, SELFPAY | PROVIDERS: PCP Internal Medicine Medical Oncology; Visit Provider Internal Medicine Medical Oncology | DX: I26.99 Other pulmonary embolism without acute cor pulmonale (principal); Z79.01 Long term (current) use of anticoagulants; Z51.81 Encounter for therapeutic drug level monitoring | CPT/HCPCS: 85610; 99211 ==

== ENCOUNTER 2024-11-30 08:42 | Outpatient (AMB) | payer OTHER, SELFPAY ==
[2024-11-30 08:53] LABS: Prothrombin Time Whole Bld POC 32.8 sec (11.1-13.5); ~PT, ~INR - Anti Coag Clinic 2.7 (0.9-1.1)
--- NOTE | 2024-11-30 09:00 | MHC.OFFVISCO ---
Intake Intake Visit Reasons: Anticoagulation Allergies ciprofloxacin (From CIPRO) Allergy (Severe, Verified 11/30/24 08:47) ANAPHYLAXIS fentanyl (FENTANYL) Allergy (Severe, Verified 11/30/24 08:47) ANAPHYLAXIS levofloxacin (From LEVAQUIN) Allergy (Severe, Verified 11/30/24 08:47) Anaphylaxis morphine (MORPHINE) Allergy (Severe, Verified 11/30/24 08:47) ANAPHYLAXIS oxycodone (OXYCODONE) Allergy (Severe, Verified 11/30/24 08:47) ANAPHYLAXIS propofol Allergy (Intermediate, Verified 11/30/24 08:47) Nausea and Vomiting Narcotics Allergy (Severe, Uncoded 11/30/24 08:47) Anaphylaxis Medication List - Last Reconciled 11/30/24 by Ericka Brady RN [herbal life multivitamin PO PRN] krill oil 1,000 mg PO DAILY levonorgestrel (Liletta) intrauterine [LIVER HEALTH PO] warfarin 10 mg See Protocol PO DAILY warfarin 2.5 mg See Protocol PO DAILY Nursing Note INR: 2.7 in therapeutic range Medications and supplements reviewed Eating healthier and exercising more, states her legs cramp at night after working out- enc to discuss with md and stay hydrated Denies any signs and symptoms of bleeding or bruising or clotting. Bleeding, bruising, clotting discussed Nutritional guidance given - eat a mix of fruits and vegetables Dose: 15mg x 1 day/ 12.5mg x 6 days F/U INR: 1 week Patient verbalizes understanding of instructions given Anti-Coag Initial Assessment Social Hx Patient Tobacco Use Status: Former Tobacco user Tobacco use type: Cigarette alcohol intake: never Alcohol intake frequency: holidays/special occasions only Coding Level of Care Code Est Patient Level 1 Diagnoses Current use of anticoagulant therapy Z79.01 Results AMB INR Fingerstick AMB INR Fingerstick 2.7 Last Edit by Ericka Brady RN on 11/30/24 08:56 manual entry Assessment & Plan Assessment & Plan (1) Current use of anticoagulant therapy: Code(s): Z79.01 - halfway (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
== END 2024-11-30 09:04 | disposition home or self-care (01) ==
LOC: HO.ACS 08:42
PROVIDERS: PCP Internal Medicine Medical Oncology; Visit Provider Internal Medicine Medical Oncology
DX: Z79.01 Long term (current) use of anticoagulants (principal)

== ENCOUNTER → 2024-11-30 08:42 | Outpatient (BNVA) | payer OTHER, SELFPAY | PROVIDERS: PCP Internal Medicine Medical Oncology; Visit Provider Internal Medicine Medical Oncology | DX: I26.99 Other pulmonary embolism without acute cor pulmonale (principal); Z79.01 Long term (current) use of anticoagulants; Z51.81 Encounter for therapeutic drug level monitoring | CPT/HCPCS: 85610; 99211 ==

== ENCOUNTER 2024-12-08 09:24 | Outpatient (AMB) | payer OTHER, SELFPAY ==
[2024-12-08 09:45] LABS: Prothrombin Time Whole Bld POC 27.8 sec (11.1-13.5); ~PT, ~INR - Anti Coag Clinic 2.3 (0.9-1.1)
--- NOTE | 2024-12-08 09:45 | MHC.OFFVISCO ---
Intake Intake Visit Reasons: Anticoagulation Allergies ciprofloxacin (From CIPRO) Allergy (Severe, Verified 12/08/24 09:36) ANAPHYLAXIS fentanyl (FENTANYL) Allergy (Severe, Verified 12/08/24 09:36) ANAPHYLAXIS levofloxacin (From LEVAQUIN) Allergy (Severe, Verified 12/08/24 09:36) Anaphylaxis morphine (MORPHINE) Allergy (Severe, Verified 12/08/24 09:36) ANAPHYLAXIS oxycodone (OXYCODONE) Allergy (Severe, Verified 12/08/24 09:36) ANAPHYLAXIS propofol Allergy (Intermediate, Verified 12/08/24 09:36) Nausea and Vomiting Narcotics Allergy (Severe, Uncoded 12/08/24 09:36) Anaphylaxis Medication List - Last Reconciled 12/08/24 by Lakesha Winkler RN [herbal life multivitamin PO PRN] krill oil 1,000 mg PO DAILY levonorgestrel (Liletta) intrauterine [LIVER HEALTH PO] warfarin 10 mg See Protocol PO DAILY warfarin 2.5 mg See Protocol PO DAILY Nursing Note INR: 2.3- in therapeutic range of 2-3 Medications and supplements reviewed No changes in health, diet, medications, or supplements, Denies any signs and symptoms of bleeding or bruising or clotting. Bleeding, bruising, clotting discussed Nutritional guidance given Dose: 12.5mg x 6, 15mg x 1 F/U INR: 1 week Patient verbalizes understanding of instructions given pt states increased greens, increased exercise which can lower Anti-Coag Initial Assessment Social Hx Patient Tobacco Use Status: Former Tobacco user Tobacco use type: Cigarette alcohol intake: never Alcohol intake frequency: holidays/special occasions only Coding Level of Care Code Est Patient Level 1 Diagnoses Current use of anticoagulant therapy Z79.01 Assessment & Plan Assessment & Plan (1) Current use of anticoagulant therapy: Code(s): Z79.01 - prison (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
--- OUTSIDE RECORDS SUMMARY | 2024-12-08 09:55 | XMS_ITS | Clinical Summary ---
Author Organization [facility] Address [address] [place] [address] Phone Care Team Providers Care Industrial Energy Engineer Name Role Phone Reji Evans MD Primary Care Provider [phone] [phone] Allergies Active Allergy Reactions Criticality Noted Date Comments Ciprofloxacin 05/15/2024 Coconut Oil Hives Low 03/31/2024 Fentanyl Anaphylaxis High 03/31/2024 Levofloxacin 04/01/2019 Morphine 03/31/2024 Oxycodone 04/01/2019 Oxycodone-Acetaminophen 04/01/2019 Medications warfarin (COUMADIN) 10 MG tablet take 1 tablet by mouth once daily AT 4PM. CHECK PT/INR TOMORROW 0 9 Active warfarin (COUMADIN) 2.5 MG tablet 9 Active predniSONE (DELTASONE) 20 MG tablet 3 tablets X 3 days, 2 tablets X 3 days , 1 tablet X 3 days 18 tablet 2 Active Additional Information Patient not taking.Reported on 05/15/2024 levonorgestreL (LILETTA) 20.4 mcg/24 hr (8 yrs) 52 mg IUD 52 mg by Intrauterine route. 4 Active medroxyPROGESTE Armen (PROVERA) 10 MG tablet Take 20 mg by mouth. 4 Active warfarin (COUMADIN) 10 MG tablet Take 10 mg by mouth. 4 Active albuterol 90 mcg/actuation inhaler Inhale 2 puffs into the lungs every 6 (six) hours as needed for wheezing. 18 g 4 Active methylPREDNISol one (MEDROL DOSEPACK) 4 mg tablet follow package directions 21 tablet 4 Active Active Problems No known active problems Immunizations Immunization Administration Dates Next Due COVID-19 (Pre-03/10) Pfizer Vaccine, mRNA, PF 08/05/2021,01/06/2021,12/12/2020 COVID-19 (Pre-03/10) Pfizer Vaccine, mRNA, aleida-sucrose, PF 08/05/2021 Influenza Quadrivalent MDCK Preservative Free IM 03/15/2023 Influenza Quadrivalent Prese rvative Free IM 02/14/2021,01/21/2020 Influenza Trivalent Preserva tive Free IM 03/17/2024 Influenza, Unspecified Formulation 02/20/2022 MMR 03/09/2019, 9,04/07/2018,2017 Tdap 03/07/2018,09/28/2014 Social History Tobacco Use Types Packs/Day Years Used Date Smoking Tobacco: Former Smokeless Tobacco: Never Tobacco Cessation:Counseling Given: Not Answered Education Answer Date Recorded Are you interested in more education? Not on nino e 09/13/2022 Are you concerned about learning? Not on file 09/13/2022 No 09/13/2022 No 09/13/2022 Digital Access Answer Date Recorded No 10/12/2022 No 10/12/2022 Reliable internet access at home? Not on file 10/12/2022 Device with a working camera? Not on file Comments Unknown Sex and Gender Information Value Date Recorded Sex Assigned at Not on file Legal Sex Female 7:47 PM EST Gender Identity Not on file Sexual Orientation Not on file Last Filed Vital Signs Vital Sign Reading Time Taken Comments Blood Pressure 111/78 05/15/2024 12:26 PM EST Pulse 79 05/15/2024 12:26 PM EST Temperature 36.7 C (98.1 F) 05/15/2024 12:26 PM EST Respiratory Rate 14 05/15/2024 12:26 PM EST Oxygen Saturation 99% 05/15/2024 12:26 PM EST Inhaled Oxygen Concentration - - Weight 83.9 kg (185 lb) 05/15/2024 12:26 PM EST Height 170.2 cm (5' 7 ) 05/15/2024 12:26 PM EST Body Mass Index 28.98 05/15/2024 12:26 PM EST Plan of Treatment Health Maintenance Due Date Last Done Comments LIPID PANEL 1970 DEPRESSION SCREENING 1982 SMOKING Hx and SMOKELESS TOBACCO SCREENING 08/04/1983 HEPATITIS C SCREENING 1988 HIV ONE-TIME SCREENING (18-65 YEARS) 1988 PAP SMEAR 08/04/1991 SCREENING FOR DIABETES 2005 MAMMOGRAM 2010 COLOGUARD 08/04/2015 COLONOSCOPY 08/04/2015 COLORECTAL CANCER SCREENING 08/04/2015 FIT TEST 08/04/2015 FOBT 08/04/2015 SIGMOIDOSCOPY 08/04/2015 VIRTUAL COLONOSCOPY 08/04/2015 PNEUMOCOCCAL VACCINES (50+ years) (1 of 1 - PCV) 2020 ZOSTER VACCINES (1 of 2) 2020 COVID-19 VACCINE ( - season) 2024 08/05/2021, 08/05/2021, 01/06/2021, Additional history exists Adult Td,Tdap Booster 03/07/2028 03/07/2018, 015 HEPATITIS A VACCINES Aged Out No long er eligible based on patient's age to complete this topic HIB VACCINES Aged Out No longer eligi ble based on patient's age to complete this topic MENINGOCOCCAL VACCINES (ACWY) Aged Out No longer eligible based on patient's age to complete this topic MENINGOCOCCAL VACCINES (B) Aged Out N o longer eligible based on patient's age to complete this topic Medical Devices Not on file Insurance O [facility] [address] [place], [place] [address] [place] [address]S FORMERLY [facility] [address] [place] [address] [place] [address] [place] [address] [facility] PPO PHCS Care Teams Industrial Energy Engineer Relationship Specialty Start Date End Date Reji Evans MD [address] [place] [id number] PCP - General Internal Medicine 05/03/19 Additional Source Comments The information contained in this document represents components of the legal health record. It is not the complete legal health record.[facility]
== END 2024-12-08 10:30 | disposition home or self-care (01) ==
LOC: HO.ACS 09:24
PROVIDERS: PCP Internal Medicine Medical Oncology; Visit Provider Internal Medicine Medical Oncology
DX: Z79.01 Long term (current) use of anticoagulants (principal)

== ENCOUNTER → 2024-12-08 09:24 | Outpatient (BNVA) | payer OTHER, SELFPAY | PROVIDERS: PCP Internal Medicine Medical Oncology; Visit Provider Internal Medicine Medical Oncology | DX: I26.99 Other pulmonary embolism without acute cor pulmonale (principal); Z79.01 Long term (current) use of anticoagulants; Z51.81 Encounter for therapeutic drug level monitoring | CPT/HCPCS: 85610; 99211 ==

== ENCOUNTER 2024-12-14 09:10 | Outpatient (AMB) | payer OTHER, SELFPAY ==
--- OUTSIDE RECORDS SUMMARY | 2024-12-11 23:59 | XMS_ITS | Continuity of Care Document ---
Author Organization [facility] Jacinda Garcia n's [facility] Address [address] [place] [address], [address] [address]- Care Team Providers Care Machinist Tool And Die Name Role Phone Reji Evans MD Primary Care Physician Encounter [facility] Date(s): 11/11/24 - 12/11/24 [facility] Jacinda Schumachers [address], [address] [place] [id number] Attending Physician: Rosetta Duffy Admitting Physician: Rosetta Duffy Referring Physician: Admtr ArElsa Encounter Type: Triage Allergies, Adverse Reactions, Alerts Substance Criticality Severity Reaction Reaction Severity Status ciprofloxacin High criticality Severe anaphylaxis Active propranolol High criticality Severe A ctive morphine High criticality Severe anaphylaxis A ctive Percocet 1 High criticality Severe anaphylaxis to Oxycodone portion throat swells Active Bee Stings High criticality Severe anaphylaxis (unknown bee type) Active Coconut Oil Low criticality Mild hives Re solved fentaNYL High criticality Severe anaphylaxis A ctive oxyCODONE High criticality Severe anaphylaxis A ctive levoFLOXacin High criticality Severe anaphylaxis Active 1pisabella Rn on edwina, pt is able to take acetaminophen Medications Caffeine vitamin Caffeine vitamin, 0 Refills, Maintenance, 10/27/24 9:06:00 AM EDT Start Date: 10/27/24 Status: Ordered Repeat number: 1 Krill Oil Capsules Krill Oil Capsules, 500 mg, By Mouth, Daily, Maintenance, 06/23/23 5:06:00 PM EST, Supply Start Date: 06/23/23 Status: Ordered Repeat number: 1 Liletta 52 mg intrauterine device 1 each = 52 mg, Intrauterine, Once, for delivery to [facility] [place] on 07/03/23 at 0900, # 1 each, 0 Refills, Soft Stop, 06/24/23 5:10:00 PM EST, [facility], Partial fill upon patient request if [...] Date: 06/23/23 Status: Ordered Repeat number: 1 warfarin 10 mg oral [...] Confirmed Active 1Problem added by Discern Expert Social History Social History Type Response Smoking Status Never smoker entered on: 04/18/15 Sex Sex Representation Female (finding) Patient Care team information Care Team Personnel Name: Reji Evans MD Position: Reference Physician Member Role: PCP Address: [address] [place] [address] [address] [place] [address]- Telecom: Name: Tina Sanabria RN Position: S RN Member Role: Primary Care Nurse Name: Marquise Franco III, RN Position: S RN Member Role: Primary Care Nurse Name: Ammy Urbina RN Position: S RN Member Role: Primary Care Nurse Care Team Related Persons Name: CHELSI BROWN Insurance Providers Guarantor name: ANALI BROWN Formerly [facility] Information #: 1 Payer: BLUE BENEFIT [employer] PPO Payer Identifier: NA Member Number: [id number] Group Number: [id number] Subscriber Identifier: [id number] Relationship to Subscriber: spouse Coverage Type: BLUE CROSS/BLUE SHIELD Coverage Verification Date: Telecom: NA Address:
[2024-12-14 09:25] LABS: Prothrombin Time Whole Bld POC 30.3 sec (11.1-13.5); ~PT, ~INR - Anti Coag Clinic 2.5 (0.9-1.1)
--- NOTE | 2024-12-14 09:27 | MHC.OFFVISCO ---
Intake Intake Visit Reasons: Anticoagulation Allergies ciprofloxacin (From CIPRO) Allergy (Severe, Verified 12/14/24 09:19) ANAPHYLAXIS fentanyl (FENTANYL) Allergy (Severe, Verified 12/14/24 09:19) ANAPHYLAXIS levofloxacin (From LEVAQUIN) Allergy (Severe, Verified 12/14/24 09:19) Anaphylaxis morphine (MORPHINE) Allergy (Severe, Verified 12/14/24 09:19) ANAPHYLAXIS oxycodone (OXYCODONE) Allergy (Severe, Verified 12/14/24 09:19) ANAPHYLAXIS propofol Allergy (Intermediate, Verified 12/14/24 09:19) Nausea and Vomiting Narcotics Allergy (Severe, Uncoded 12/14/24 09:19) Anaphylaxis Medication List - Last Reconciled 12/14/24 by Kacey Falcon RN [herbal life multivitamin PO PRN] krill oil 1,000 mg PO DAILY levonorgestrel (Liletta) intrauterine [LIVER HEALTH PO] warfarin 10 mg See Protocol PO DAILY warfarin 2.5 mg See Protocol PO DAILY Nursing Note INR: 2.5 in therapeutic range 2-3 Medications and supplements reviewed No changes in health, diet, medications, or supplements, Denies any signs and symptoms of bleeding or bruising or clotting. 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
--- OUTSIDE RECORDS SUMMARY | 2024-12-14 09:35 | XMS_ITS | Clinical Summary ---
Author Organization [facility] Address [address] [place] [address] Phone Care Team Providers Care Automatic Bandsaw Tender Name Role Phone Reji Evans MD Primary Care Provider [phone] [phone] Allergies Active Allergy Reactions Criticality Noted Date [...] Medical Devices Not on file Insurance [facility] [address] [place], [place] [address] [place] [address]S FOR[facility]LY [facility] [address] [place] [address] [place] [address] [place] [address] [address] [place] [address] [facility] PPO PHCS Care Teams Automatic Bandsaw Tender Relationship Specialty Start Date End Date Reji Evans MD [address] [place] [phone] PCP - General Internal Medicine 05/03/19 Additional Source Comments The information contained in this document represents components of the legal health record. It is not the complete legal health record.[facility]
== END 2024-12-14 09:31 | disposition home or self-care (01) ==
LOC: HO.ACS 09:10
PROVIDERS: PCP Internal Medicine Medical Oncology; Visit Provider Internal Medicine Medical Oncology
DX: Z79.01 Long term (current) use of anticoagulants (principal)

== ENCOUNTER → 2024-12-14 09:10 | Outpatient (BNVA) | payer OTHER, SELFPAY | PROVIDERS: PCP Internal Medicine Medical Oncology; Visit Provider Internal Medicine Medical Oncology | DX: I26.99 Other pulmonary embolism without acute cor pulmonale (principal); Z79.01 Long term (current) use of anticoagulants; Z51.81 Encounter for therapeutic drug level monitoring | CPT/HCPCS: 85610; 99211 ==

== ENCOUNTER 2024-12-24 08:46 | Outpatient (AMB) | payer OTHER, SELFPAY ==
--- NOTE | 2024-12-24 09:10 | MHC.OFFVISCO ---
Intake Intake Visit Reasons: Anticoagulation Allergies ciprofloxacin (From CIPRO) Allergy (Severe, Verified 12/24/24 08:55) ANAPHYLAXIS fentanyl (FENTANYL) Allergy (Severe, Verified 12/24/24 08:55) ANAPHYLAXIS levofloxacin (From LEVAQUIN) Allergy (Severe, Verified 12/24/24 08:55) Anaphylaxis morphine (MORPHINE) Allergy (Severe, Verified 12/24/24 08:55) ANAPHYLAXIS oxycodone (OXYCODONE) Allergy (Severe, Verified 12/24/24 08:55) ANAPHYLAXIS propofol Allergy (Intermediate, Verified 12/24/24 08:55) Nausea and Vomiting Narcotics Allergy (Severe, Uncoded 12/24/24 08:55) Anaphylaxis Medication List - Last Reconciled 12/24/24 by Ericka Brady RN [herbal life multivitamin PO PRN] krill oil 1,000 mg PO DAILY levonorgestrel (Liletta) intrauterine [LIVER HEALTH PO] warfarin 10 mg See Protocol PO DAILY warfarin 2.5 mg See Protocol PO DAILY Nursing Note INR: 2.9 in therapeutic range Medications and supplements reviewed No changes in health, diet, medications, or supplements, Denies any signs and symptoms of bleeding or bruising or clotting. Bleeding, bruising, clotting discussed Nutritional guidance given - EAT A MIX OF FRUITS AND VEGETABLES Dose: 15mg x 1 day/ 12.5mg x 6 days F/U INR: 2 weeks Patient verbalizes understanding of instructions given Anti-Coag Initial Assessment Social Hx Patient Tobacco Use Status: Former Tobacco user Tobacco use type: Cigarette alcohol intake: never Alcohol intake frequency: holidays/special occasions only Coding Level of Care Code Est Patient Level 1 Diagnoses Current use of anticoagulant therapy Z79.01 Results AMB INR Fingerstick AMB INR Fingerstick 2.9 Last Edit by Ericka Brady RN on 12/24/24 09:06 MANUAL ENTRY Assessment & Plan Assessment & Plan (1) Current use of anticoagulant therapy: 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
[2024-12-24 09:36] LABS: Prothrombin Time Whole Bld POC 34.2 sec (11.1-13.5); ~PT, ~INR - Anti Coag Clinic 2.9 (0.9-1.1)
== END 2024-12-24 09:12 | disposition home or self-care (01) ==
LOC: HO.ACS 08:46
PROVIDERS: PCP Internal Medicine Medical Oncology; Visit Provider Internal Medicine Medical Oncology
DX: Z79.01 Long term (current) use of anticoagulants (principal)

== ENCOUNTER → 2024-12-24 08:46 | Outpatient (BNVA) | payer OTHER, SELFPAY | PROVIDERS: PCP Internal Medicine Medical Oncology; Visit Provider Internal Medicine Medical Oncology | DX: Z79.01 Long term (current) use of anticoagulants (principal) | CPT/HCPCS: 85610; 99211 ==

== ENCOUNTER 2025-01-04 08:55 | Outpatient (AMB) | payer OTHER, SELFPAY ==
[2025-01-04 09:07] LABS: Prothrombin Time Whole Bld POC 24.7 sec (11.1-13.5); ~PT, ~INR - Anti Coag Clinic 2.1 (0.9-1.1)
--- NOTE | 2025-01-04 09:13 | MHC.OFFVISCO ---
Intake Intake Visit Reasons: Anticoagulation Allergies ciprofloxacin (From CIPRO) Allergy (Severe, Verified 01/04/25 09:01) ANAPHYLAXIS fentanyl (FENTANYL) Allergy (Severe, Verified 01/04/25 09:01) ANAPHYLAXIS levofloxacin (From LEVAQUIN) Allergy (Severe, Verified 01/04/25 09:01) Anaphylaxis morphine (MORPHINE) Allergy (Severe, Verified 01/04/25 09:01) ANAPHYLAXIS oxycodone (OXYCODONE) Allergy (Severe, Verified 01/04/25 09:01) ANAPHYLAXIS propofol Allergy (Intermediate, Verified 01/04/25 09:01) Nausea and Vomiting Narcotics Allergy (Severe, Uncoded 12/24/24 08:55) Anaphylaxis Medication List - Last Reconciled 01/04/25 by Tiffanie Rosario RN [herbal life multivitamin PO PRN] krill oil 1,000 mg PO DAILY levonorgestrel (Liletta) intrauterine [LIVER HEALTH PO] warfarin 10 mg See Protocol PO DAILY warfarin 2.5 mg See Protocol PO DAILY Nursing Note NO CP,SOB,DIET/MED CHANGES,FALLS OR SX OF BLEEDING. CONTINUE PRESENT DOSING AND FOLLOW-UP IN 2 WEEKS GOOD UNDERSTANDING OF DOSING INSTR. 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
--- OUTSIDE RECORDS SUMMARY | 2025-01-04 09:45 | XMS_ITS | Clinical Summary ---
Author Organization [facility] Address [address] [place] [address] Phone Care Team Providers Care Dry Kiln Operator Name Role Phone Reji Evans MD Primary Care Provider [phone] [phone] Allergies Active Allergy Reactions Criticality Noted Date [...] (Pre-03/10) Pfizer Vaccine, mRNA, aleida-sucrose, PF 08/05/2021 INFLUENZA, SPLIT VIRUS, TRIVALENT PF 03/17/2024 Influenza Quadrivalent MDCK Preservative Free IM 03/15/2023 Influenza Quadrivalent Prese rvative Free IM 02/14/2021,01/21/2020 Influenza, Unspecified Formulation 02/20/2022 MMR 03/09/2019, 9,04/07/2018,2017 [...] (1 of 2) 2020 COVID-19 VACCINE ( season) 2024 08/05/2021, 08/05/2021, 01/06/2021, Additional history [...] topic Medical Devices Not on file Insurance [address] [place], [place] [address] [place], [place] [address] [place] [address] [place] [address] [place] [place] [address] [facility] PPO PHCS Care Teams Dry Kiln Operator Relationship Specialty Start Date End Date Reji Evans MD [address] [place] [id number] PCP - General Internal Medicine 05/03/19 Additional Source Comments The information contained in this document represents components of the legal health record. It is not the complete legal health record.[facility]
== END 2025-01-04 09:14 | disposition home or self-care (01) ==
LOC: HO.ACS 08:55
PROVIDERS: PCP Internal Medicine Medical Oncology; Visit Provider Internal Medicine Medical Oncology
DX: Z79.01 Long term (current) use of anticoagulants (principal)

== ENCOUNTER → 2025-01-04 08:55 | Outpatient (BNVA) | payer OTHER, SELFPAY | PROVIDERS: PCP Internal Medicine Medical Oncology; Visit Provider Internal Medicine Medical Oncology | DX: I26.99 Other pulmonary embolism without acute cor pulmonale (principal); Z79.01 Long term (current) use of anticoagulants; Z51.81 Encounter for therapeutic drug level monitoring | CPT/HCPCS: 85610; 99211 ==

== ENCOUNTER 2025-02-02 09:14 | Outpatient (AMB) | payer OTHER, SELFPAY ==
[2025-02-02 09:26] LABS: Prothrombin Time Whole Bld POC 36.5 sec (11.1-13.5); ~PT, ~INR - Anti Coag Clinic 3.0 (0.9-1.1)
--- NOTE | 2025-02-02 09:26 | MHC.OFFVISCO ---
Intake Intake Visit Reasons: Anticoagulation Allergies ciprofloxacin (From CIPRO) Allergy (Severe, Verified 02/02/25 09:17) ANAPHYLAXIS fentanyl (FENTANYL) Allergy (Severe, Verified 02/02/25 09:17) ANAPHYLAXIS levofloxacin (From LEVAQUIN) Allergy (Severe, Verified 02/02/25 09:17) Anaphylaxis morphine (MORPHINE) Allergy (Severe, Verified 02/02/25 09:17) ANAPHYLAXIS oxycodone (OXYCODONE) Allergy (Severe, Verified 02/02/25 09:17) ANAPHYLAXIS propofol Allergy (Intermediate, Verified 02/02/25 09:17) Nausea and Vomiting Narcotics Allergy (Severe, Uncoded 02/02/25 09:17) Anaphylaxis Medication List - Last Reconciled 02/02/25 by Lakesha Winkler RN krill oil 1,000 mg PO DAILY levonorgestrel (Liletta) intrauterine [LIVER HEALTH PO] multivitamin 1 tab PO DAILY warfarin 10 mg See Protocol PO DAILY warfarin 2.5 mg See Protocol PO DAILY Nursing Note INR: 3.0- in therapeutic range 2-3 Medications and supplements reviewed- OSWALDO multivit daily No changes in health, diet, medications, or supplements, Denies any signs and symptoms of bleeding or bruising or clotting. Bleeding, bruising, clotting discussed Nutritional guidance given - has been eating winter squash and beets, coleslaw Dose: 15mg x 1. 12.5mg x 6 F/U INR: pt req 1 week Patient verbalizes understanding of instructions given Anti-Coag Initial Assessment Social Hx Patient Tobacco Use Status: Former Tobacco user Tobacco use type: Cigarette alcohol intake: never Alcohol intake frequency: holidays/special occasions only Coding Level of Care Code Est Patient Level 1 Diagnoses Current use of anticoagulant therapy Z79.01 Assessment & Plan Assessment & Plan (1) Current use of anticoagulant therapy: Code(s): Z79.01 - residential (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
--- OUTSIDE RECORDS SUMMARY | 2025-02-02 10:52 | XMS_ITS | Clinical Summary ---
Author Organization [facility] Address [address] [place] [address] Phone Care Team Providers Care Trustee Of Estate Name Role Phone Reji Evans MD Primary Care Provider [phone] [phone] Allergies Active Allergy Reactions Criticality Noted Date [...] 2020 ZOSTER VACCINES (1 of 2) 2020 INFLUENZA VACCINE (#1) 2024 , 03/15/2023, 02/20/2022, Additional history exists COVID-19 VACCINE ( season) 2025 08/05/2021, 08/05/2021, 01/06/2021, Additional history exists Adult [...] topic Medical Devices Not on file Insurance [facility] [address] [place] [address] [address] [facility] [address] [place], [place] [address] [facility] PPO PHCS Care Teams Trustee Of Estate Relationship Specialty Start Date End Date Reji Evans MD [address] [place] [address] [phone] PCP - General Internal Medicine 05/03/19 Additional Source Comments The information contained in this document represents components of the legal health record. It is not the complete legal health record.[facility]
== END 2025-02-02 09:33 | disposition home or self-care (01) ==
LOC: HO.ACS 09:14
PROVIDERS: PCP Internal Medicine Medical Oncology; Visit Provider Internal Medicine Medical Oncology
DX: Z79.01 Long term (current) use of anticoagulants (principal)

== ENCOUNTER → 2025-02-02 09:14 | Outpatient (BNVA) | payer OTHER, SELFPAY | PROVIDERS: PCP Internal Medicine Medical Oncology; Visit Provider Internal Medicine Medical Oncology | DX: I26.99 Other pulmonary embolism without acute cor pulmonale (principal); Z79.01 Long term (current) use of anticoagulants; Z51.81 Encounter for therapeutic drug level monitoring | CPT/HCPCS: 85610; 99211 ==

== ENCOUNTER 2025-02-10 09:05 | Outpatient (AMB) | payer OTHER, SELFPAY ==
[2025-02-10 09:20] LABS: Prothrombin Time Whole Bld POC 33.0 sec (11.1-13.5); ~PT, ~INR - Anti Coag Clinic 2.7 (0.9-1.1)
--- NOTE | 2025-02-10 09:24 | MHC.OFFVISCO ---
Intake Intake Visit Reasons: Anticoagulation Allergies ciprofloxacin (From CIPRO) Allergy (Severe, Verified 02/10/25 09:15) ANAPHYLAXIS fentanyl (FENTANYL) Allergy (Severe, Verified 02/10/25 09:15) ANAPHYLAXIS levofloxacin (From LEVAQUIN) Allergy (Severe, Verified 02/10/25 09:15) Anaphylaxis morphine (MORPHINE) Allergy (Severe, Verified 02/10/25 09:15) ANAPHYLAXIS oxycodone (OXYCODONE) Allergy (Severe, Verified 02/10/25 09:15) ANAPHYLAXIS propofol Allergy (Intermediate, Verified 02/10/25 09:15) Nausea and Vomiting Narcotics Allergy (Severe, Uncoded 02/10/25 09:15) Anaphylaxis Medication List - Last Reconciled 02/10/25 by Kacey Falcon RN krill oil 1,000 mg PO DAILY levonorgestrel (Liletta) intrauterine [LIVER HEALTH PO] multivitamin 1 tab PO DAILY warfarin 10 mg See Protocol PO DAILY warfarin 2.5 mg See Protocol PO DAILY Nursing Note INR: 2.7 in therapeutic range 2-3 Medications and supplements reviewed No changes in health, diet, medications, or supplements, Denies any signs and symptoms of bleeding or bruising or clotting. Bleeding, bruising, clotting discussed Nutritional guidance given Dose: dose decreased by 2.5mg weekly d/t a new vitamin pt is taking that is raising her INR. She states she had a lot of greens last week and the INR is still on the high side. She had salad everyday and cabbage. Pt will take 12.5mg daily F/U INR: 1 week Patient verbalizes understanding of instructions given Anti-Coag Initial Assessment Social Hx Patient Tobacco Use Status: Former Tobacco user Tobacco use type: Cigarette alcohol intake: never Alcohol intake frequency: holidays/special occasions only Coding Level of Care Code Est Patient Level 1 Diagnoses Current use of anticoagulant therapy Z79.01 Results AMB INR Fingerstick AMB INR Fingerstick 2.7 Last Edit by Kacey Falcon RN on 02/10/25 09:20 interface delay Assessment & Plan Assessment & Plan (1) Current use of anticoagulant therapy: Code(s): Z79.01 - 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
--- OUTSIDE RECORDS SUMMARY | 2025-02-10 09:51 | XMS_ITS | Clinical Summary ---
Author Organization [facility] Address [address] [place] [address] Phone Care Team Providers Care Stylist Apprentice Name Role Phone Reji Evans MD Primary Care Provider [phone] [phone] Allergies Active Allergy Reactions Criticality Noted Date [...] topic Medical Devices Not on file Insurance [facility] [address] [place], [place] [address] [address] [facility] [address] [place], [place] [address] [facility] PPO PHCS Care Teams Stylist Apprentice Relationship Specialty Start Date End Date Reji Eavns MD [address] [place] [address] [phone] PCP - General Internal Medicine 05/03/19 Additional Source Comments The information contained in this document represents components of the legal health record. It is not the complete legal health record.[facility]
== END 2025-02-10 09:31 | disposition home or self-care (01) ==
LOC: HO.ACS 09:05
PROVIDERS: PCP Internal Medicine Medical Oncology; Visit Provider Internal Medicine Medical Oncology
DX: Z79.01 Long term (current) use of anticoagulants (principal)

== ENCOUNTER → 2025-02-10 09:05 | Outpatient (BNVA) | payer OTHER, SELFPAY | PROVIDERS: PCP Internal Medicine Medical Oncology; Visit Provider Internal Medicine Medical Oncology | DX: I26.99 Other pulmonary embolism without acute cor pulmonale (principal); Z79.01 Long term (current) use of anticoagulants; Z51.81 Encounter for therapeutic drug level monitoring | CPT/HCPCS: 85610; 99211 ==

== ENCOUNTER 2025-02-17 09:13 | Outpatient (AMB) | payer OTHER, SELFPAY ==
[2025-02-17 09:33] LABS: Prothrombin Time Whole Bld POC 28.8 sec (11.1-13.5); ~PT, ~INR - Anti Coag Clinic 2.4 (0.9-1.1)
--- NOTE | 2025-02-17 09:41 | MHC.OFFVISCO ---
Intake Intake Visit Reasons: Anticoagulation Allergies ciprofloxacin (From CIPRO) Allergy (Severe, Verified 02/17/25 09:27) ANAPHYLAXIS fentanyl (FENTANYL) Allergy (Severe, Verified 02/17/25 09:27) ANAPHYLAXIS levofloxacin (From LEVAQUIN) Allergy (Severe, Verified 02/17/25 09:27) Anaphylaxis morphine (MORPHINE) Allergy (Severe, Verified 02/17/25 09:27) ANAPHYLAXIS oxycodone (OXYCODONE) Allergy (Severe, Verified 02/17/25 09:27) ANAPHYLAXIS propofol Allergy (Intermediate, Verified 02/17/25 09:27) Nausea and Vomiting Narcotics Allergy (Severe, Uncoded 02/17/25 09:27) Anaphylaxis Medication List - Last Reconciled 02/17/25 by Ericka Brady RN krill oil 1,000 mg PO DAILY levonorgestrel (Liletta) intrauterine [LIVER HEALTH PO] multivitamin 1 tab PO DAILY warfarin 10 mg See Protocol PO DAILY warfarin 2.5 mg See Protocol PO DAILY Nursing Note INR: 2.4 in therapeutic range Medications and supplements reviewed No changes in health, diet, medications, or supplements, Denies any signs and symptoms of bleeding or bruising or clotting. Bleeding, bruising, clotting discussed Nutritional guidance given Dose: 12.5 mg daily F/U INR: 1 week Patient verbalizes understanding of instructions given Anti-Coag Initial Assessment Social Hx Patient Tobacco Use Status: Former Tobacco user Tobacco use type: Cigarette alcohol intake: never Alcohol intake frequency: holidays/special occasions only Coding Level of Care Code Est Patient Level 1 Diagnoses Current use of anticoagulant therapy Z79.01 Assessment & Plan Assessment & Plan (1) Current use of anticoagulant therapy: Code(s): Z79.01 - USP (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
--- OUTSIDE RECORDS SUMMARY | 2025-02-17 10:03 | XMS_ITS | Clinical Summary ---
Author Organization [facility] Address [address] [place] [address] Phone Care Team Providers Care Fingerprint Technician Name Role Phone Reji Evans MD Primary Care Provider +1 [phone] Allergies Active Allergy Reactions Criticality Noted Date [...] Devices Not on file Insurance [facility] [address] [place], [place] [address] [facility] [place] [address] [place] [address]S [facility] P[facility] PHCS Care Teams Fingerprint Technician Relationship Specialty Start Date End Date Reji Evans MD [address] [place] [address] [id number] PCP - General Internal Medicine 05/03/19 Additional Source Comments The information contained in this document represents components of the legal health record. It is not the complete legal health record.[facility]
== END 2025-02-17 09:44 | disposition home or self-care (01) ==
LOC: HO.ACS 09:13
PROVIDERS: PCP Internal Medicine Medical Oncology; Visit Provider Internal Medicine Medical Oncology
DX: Z79.01 Long term (current) use of anticoagulants (principal)

== ENCOUNTER → 2025-02-17 09:13 | Outpatient (BNVA) | payer OTHER, SELFPAY | PROVIDERS: PCP Internal Medicine Medical Oncology; Visit Provider Internal Medicine Medical Oncology | DX: I26.99 Other pulmonary embolism without acute cor pulmonale (principal); Z79.01 Long term (current) use of anticoagulants; Z51.81 Encounter for therapeutic drug level monitoring | CPT/HCPCS: 85610; 99211 ==

== ENCOUNTER 2025-02-24 11:13 | Outpatient (AMB) | payer OTHER, SELFPAY ==
[2025-02-24 11:19] LABS: Prothrombin Time Whole Bld POC 33.4 sec (11.1-13.5); ~PT, ~INR - Anti Coag Clinic 2.8 (0.9-1.1)
--- NOTE | 2025-02-24 11:26 | MHC.OFFVISCO ---
Intake Intake Visit Reasons: Anticoagulation Allergies ciprofloxacin (From CIPRO) Allergy (Severe, Verified 02/24/25 11:14) ANAPHYLAXIS fentanyl (FENTANYL) Allergy (Severe, Verified 02/24/25 11:14) ANAPHYLAXIS levofloxacin (From LEVAQUIN) Allergy (Severe, Verified 02/24/25 11:14) Anaphylaxis morphine (MORPHINE) Allergy (Severe, Verified 02/24/25 11:14) ANAPHYLAXIS oxycodone (OXYCODONE) Allergy (Severe, Verified 02/24/25 11:14) ANAPHYLAXIS propofol Allergy (Intermediate, Verified 02/24/25 11:14) Nausea and Vomiting Narcotics Allergy (Severe, Uncoded 02/24/25 11:14) Anaphylaxis Medication List - Last Reconciled 02/24/25 by Kacey Falcon, RN krill oil 1,000 mg PO DAILY levonorgestrel (Liletta) intrauterine [LIVER HEALTH PO] multivitamin 1 tab PO DAILY warfarin 10 mg See Protocol PO DAILY warfarin 2.5 mg See Protocol PO DAILY Nursing Note INR: 2.8 in therapeutic range of 2-3 Medications and supplements reviewed No changes in health, diet, medications, or supplements, Denies any signs and symptoms of bleeding or bruising or clotting. Bleeding, bruising, clotting discussed Nutritional guidance given Dose: 12.5mg daily F/U INR: 2 weeks Patient verbalizes understanding of instructions given Anti-Coag Initial Assessment Social Hx Patient Tobacco Use Status: Former Tobacco user Tobacco use type: Cigarette alcohol intake: never Alcohol intake frequency: holidays/special occasions only Coding Level of Care Code Est Patient Level 1 Diagnoses Current use of anticoagulant therapy Z79.01 Assessment & Plan Assessment & Plan (1) Current use of anticoagulant therapy: Code(s): Z79.01 - senior care (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
== END 2025-02-24 11:30 | disposition home or self-care (01) ==
LOC: HO.ACS 11:13
PROVIDERS: PCP Internal Medicine Medical Oncology; Visit Provider Internal Medicine Medical Oncology
DX: Z79.01 Long term (current) use of anticoagulants (principal)

== ENCOUNTER → 2025-02-24 11:13 | Outpatient (BNVA) | payer OTHER, SELFPAY | PROVIDERS: PCP Internal Medicine Medical Oncology; Visit Provider Internal Medicine Medical Oncology | DX: I26.99 Other pulmonary embolism without acute cor pulmonale (principal); Z79.01 Long term (current) use of anticoagulants; Z51.81 Encounter for therapeutic drug level monitoring | CPT/HCPCS: 85610; 99211 ==

== ENCOUNTER 2025-03-10 11:03 | Outpatient (AMB) | payer OTHER, SELFPAY ==
[2025-03-10 11:21] LABS: Prothrombin Time Whole Bld POC 63.1 sec (11.1-13.5); ~PT, ~INR - Anti Coag Clinic 5.3 (0.9-1.1)
[2025-03-10 11:21] LABS: Prothrombin Time Whole Bld POC 65.1 sec (11.1-13.5); ~PT, ~INR - Anti Coag Clinic 5.4 (0.9-1.1)
--- NOTE | 2025-03-10 11:31 | MHC.OFFVISCO ---
Intake Intake Visit Reasons: Anticoagulation Allergies ciprofloxacin (From CIPRO) Allergy (Severe, Verified 03/10/25 11:10) ANAPHYLAXIS fentanyl (FENTANYL) Allergy (Severe, Verified 03/10/25 11:10) ANAPHYLAXIS levofloxacin (From LEVAQUIN) Allergy (Severe, Verified 03/10/25 11:10) Anaphylaxis morphine (MORPHINE) Allergy (Severe, Verified 03/10/25 11:10) ANAPHYLAXIS oxycodone (OXYCODONE) Allergy (Severe, Verified 03/10/25 11:10) ANAPHYLAXIS propofol Allergy (Intermediate, Verified 03/10/25 11:10) Nausea and Vomiting Narcotics Allergy (Severe, Uncoded 03/10/25 11:10) Anaphylaxis Medication List - Last Reconciled 03/10/25 by Ericka Brady RN krill oil 1,000 mg PO DAILY levonorgestrel (Liletta) intrauterine [LIVER HEALTH PO] multivitamin 1 tab PO DAILY warfarin 10 mg See Protocol PO DAILY warfarin 2.5 mg See Protocol PO DAILY Nursing Note INR 5.4? out of therapeutic range Medications and supplements reviewed Patient status: * pt has not eaten usual amt of greens, had squash and watermelon beer recently - all can contribute elevated INR Medications or supplements: no changes Diet: eating more seasonal foods Denies any signs and symptoms of bleeding or clotting or unusual bruising Bleeding, bruising, clotting discussed - to go to ER for any unusual bleeding or bruising especially if she hits her head Nutritional guidance given: greens today and tomorrow, cooked greens lower the INR more than raw due to easier to absorb vitk after greens have been cooked. avoid foods that can raise the INR Dose: Hold warfarin today then 7.5mg Friday and eat greens today and tomorrow, then resume 12.5mg daily F/U INR Date: Pt states she is unable to come in Friday or Friday for INR f/u INR and stated she could come 03/16/25. ?? Patient verbalizing understanding of instructions given and will go to ER for any risk of bleeding or head injury. Msg to Dr Champagne will f/u with call Anti-Coag Initial Assessment Social Hx Patient Tobacco Use Status: Former Tobacco user Tobacco use type: Cigarette alcohol intake: never Alcohol intake frequency: holidays/special occasions only Coding Level of Care Code Est Patient Level 1 Diagnoses Current use of anticoagulant therapy Z79.01 Time Spent (min) 25 Comment repeat INR , msg and t/c to pcp for critical INR with assessment Results AMB INR Fingerstick AMB INR Fingerstick 5.4 Last Edit by Ericka Brady RN on 03/10/25 11:23 MANUAL ENTRY Assessment & Plan Assessment & Plan (1) Current use of anticoagulant therapy: Code(s): Z79.01 - detention (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
== END 2025-03-10 11:47 | disposition home or self-care (01) ==
LOC: HO.ACS 11:03
PROVIDERS: PCP Internal Medicine Medical Oncology; Visit Provider Internal Medicine Medical Oncology
DX: Z79.01 Long term (current) use of anticoagulants (principal)

== ENCOUNTER → 2025-03-10 11:03 | Outpatient (BNVA) | payer OTHER, SELFPAY | PROVIDERS: PCP Internal Medicine Medical Oncology; Visit Provider Internal Medicine Medical Oncology | DX: Z79.01 Long term (current) use of anticoagulants (principal) | CPT/HCPCS: 85610; 99211 ==

== ENCOUNTER 2025-03-16 09:54 | Outpatient (AMB) | payer OTHER, SELFPAY ==
[2025-03-16 10:07] LABS: Prothrombin Time Whole Bld POC 21.5 sec (11.1-13.5); ~PT, ~INR - Anti Coag Clinic 1.8 (0.9-1.1)
--- NOTE | 2025-03-16 10:17 | MHC.OFFVISCO ---
Intake Intake Visit Reasons: Anticoagulation Allergies ciprofloxacin (From CIPRO) Allergy (Severe, Verified 03/16/25 10:02) ANAPHYLAXIS fentanyl (FENTANYL) Allergy (Severe, Verified 03/16/25 10:02) ANAPHYLAXIS levofloxacin (From LEVAQUIN) Allergy (Severe, Verified 03/16/25 10:02) Anaphylaxis morphine (MORPHINE) Allergy (Severe, Verified 03/16/25 10:02) ANAPHYLAXIS oxycodone (OXYCODONE) Allergy (Severe, Verified 03/16/25 10:02) ANAPHYLAXIS propofol Allergy (Intermediate, Verified 03/16/25 10:02) Nausea and Vomiting Narcotics Allergy (Severe, Uncoded 03/10/25 11:10) Anaphylaxis Medication List - Last Reconciled 03/16/25 by Tiffanie Rosario RN krill oil 1,000 mg PO DAILY levonorgestrel (Liletta) intrauterine [LIVER HEALTH PO] multivitamin 1 tab PO DAILY warfarin 10 mg See Protocol PO DAILY warfarin 2.5 mg See Protocol PO DAILY Nursing Note NO CP,SOB,DIET/MED CHANGES,FALLS OR SX OF BLEEDING. RESUME PREVIOUS DOSE OF 12.5MGM DAILY AND FOLLOW-UP ON 03/21/25. GOOD UNDERSTANDING OF DOSING INSTR. 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
--- OUTSIDE RECORDS SUMMARY | 2025-03-16 11:57 | XMS_ITS | Clinical Summary ---
Author Organization [facility] Address [address] [place] [address] Phone Care Team Providers Care Wine Cellar Worker Name Role Phone Reji Evans MD Primary Care Provider +1 [phone] Allergies Active Allergy Reactions Criticality Noted Date [...] 02/20/2022, Additional history exists COVID-19 VACCINE ( - season) 2025 08/05/2021, 08/05/2021, 01/06/2021, Additional history exists Adult Td,Tdap Booster 03/07/2028 03/07/2018, 015 RSV VACCINE (1 - 1-dose 75+ series) 2045 HEPATITIS A VACCINES Aged Out No long [...] topic Medical Devices Not on file [facility] [address] [place], [place] [address] [place] [address] [place] [address] [place] [address] [place] [place] [address] [place] [address] [place] [address] [facility] PPO PHCS Care Teams Wine Cellar Worker Relationship Specialty Start Date End Date Reji Evans MD [address] [place] [address] Dr Antoine [address] [place] [phone] PCP - General Internal Medicine 05/03/19 Additional Source Comments The information contained in this document represents components of the legal health record. It is not the complete legal health record.[facility]
== END 2025-03-16 10:19 | disposition home or self-care (01) ==
LOC: HO.ACS 09:54
PROVIDERS: PCP Internal Medicine Medical Oncology; Visit Provider Internal Medicine Medical Oncology
DX: Z79.01 Long term (current) use of anticoagulants (principal)

== ENCOUNTER → 2025-03-16 09:54 | Outpatient (BNVA) | payer OTHER, SELFPAY | PROVIDERS: PCP Internal Medicine Medical Oncology; Visit Provider Internal Medicine Medical Oncology | DX: I26.99 Other pulmonary embolism without acute cor pulmonale (principal); Z79.01 Long term (current) use of anticoagulants; Z51.81 Encounter for therapeutic drug level monitoring | CPT/HCPCS: 85610; 99211 ==

== ENCOUNTER 2025-03-23 09:05 | Outpatient (AMB) | payer OTHER, SELFPAY ==
--- NOTE | 2025-03-23 09:13 | MHC.OFFVISCO ---
Intake Intake Visit Reasons: Anticoagulation Allergies ciprofloxacin (From CIPRO) Allergy (Severe, Verified 03/23/25 09:07) ANAPHYLAXIS fentanyl (FENTANYL) Allergy (Severe, Verified 03/23/25 09:07) ANAPHYLAXIS levofloxacin (From LEVAQUIN) Allergy (Severe, Verified 03/23/25 09:07) Anaphylaxis morphine (MORPHINE) Allergy (Severe, Verified 03/23/25 09:07) ANAPHYLAXIS oxycodone (OXYCODONE) Allergy (Severe, Verified 03/23/25 09:07) ANAPHYLAXIS propofol Allergy (Intermediate, Verified 03/23/25 09:07) Nausea and Vomiting Narcotics Allergy (Severe, Uncoded 03/23/25 09:07) Anaphylaxis Medication List - Last Reconciled 03/23/25 by Lakesha Winkler RN krill oil 1,000 mg PO DAILY levonorgestrel (Liletta) 20.4 mcg intrauterine USEASDIRECTD [LIVER HEALTH PO] multivitamin 1 tab PO DAILY warfarin 2.5 mg See Protocol PO DAILY warfarin (Jantoven) 10 mg PO DAILY Nursing Note INR: 2.0- in therapeutic range 2-3 Medications and supplements reviewed- beet root supp increase by 100mcg No changes in health, diet, medications, or supplements, Denies any signs and symptoms of bleeding or bruising or clotting. Bleeding, bruising, clotting discussed Nutritional guidance given - no greens for 2-3 days Dose: 12.5mg x 7 F/U INR: 1 week Patient verbalizes understanding of instructions given Anti-Coag Initial Assessment Social Hx Patient Tobacco Use Status: Former Tobacco user Tobacco use type: Cigarette alcohol intake: never Alcohol intake frequency: holidays/special occasions only Questionnaires HAS-BLED Does the patient had uncontrolled Hypertension?: No Does the patient have renal disease?: No Does the patient have liver disease?: Yes (fatty liver) Does the patient have a history of stroke?: No Has the patient had major bleeding or predisposition to bleeding?: Yes (heavy menstrual- iud) Does the patient have labile INRs?: Yes Is the patient over 65 years of age?: No Is the patient on medications that gives them a predisposition to bleeding?: Yes Does the patient use alcohol?: Yes HAS-BLED Score: 5 CHADSVASC Age: <65 Gender: Female Does the patient have a history of CHF?: No Does the patient have a history of Hypertension?: No Does the patient have a history of Stroke/TIA/Thromboembolism?: Yes Does the patient have a history of Vascular Disease (prior AK, PAD or aortic plaque)?: No Does the patient have a history of Diabetes?: No CHADS VACS Score: 3 Amanda Prediction Score Rsk VTE Active Cancer: No Previous VTE, excluding superficial vein thrombosis: Yes Reduced mobility: No Already known Thrombophilic Condition: No With-in last month Trauma and/or Surgery: No Elderly 70 year or older: No Heart and/or Respiratory Failure: No Acute Myocardial infarction and/or Ischemic Stroke: No Acute Infection and/or Rheumatologic Disorder: Yes (HX OF LYME DISEASE ) Obesity (BMI 30 or greater): Yes Ongoing Hormonal Treatment: No Score: 5 Amanda Score less than 4; Low Risk of VTE Amanda Score 4 or greater; High Risk of VTE Coding Level of Care Code Est Patient Level 1 Diagnoses Current use of anticoagulant therapy Z79.01 Assessment & Plan Assessment & Plan (1) Current use of anticoagulant therapy: Code(s): Z79.01 - 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
[2025-03-23 09:14] LABS: Prothrombin Time Whole Bld POC 24.4 sec (11.1-13.5); ~PT, ~INR - Anti Coag Clinic 2.0 (0.9-1.1)
--- OUTSIDE RECORDS SUMMARY | 2025-03-23 09:46 | XMS_ITS | Clinical Summary ---
Author Organization [facility] Address [address] [place] [id number] Phone Care Team Providers Care News Assistant Name Role Phone Reji Evans MD Primary Care Provider [phone] [phone] Allergies Active Allergy Reactions Criticality Noted Date [...] topic Medical Devices Not on file [facility] [address] [place], [place] [address] [place] [place] [address] [place] [address] [place] [address] [place] [address] [place] [address] [place] [address] [facility] PPO PHCS Care Teams News Assistant Relationship Specialty Start Date End Date Reji Evans MD [address] [place] [address] Dr Antoine [address] [place] [id number] PCP - General Internal Medicine 05/03/19 Additional Source Comments The information contained in this document represents components of the legal health record. It is not the complete legal health record.[facility]
== END 2025-03-23 09:25 | disposition home or self-care (01) ==
LOC: HO.ACS 09:05
PROVIDERS: PCP Internal Medicine Medical Oncology; Visit Provider Internal Medicine Medical Oncology
DX: Z79.01 Long term (current) use of anticoagulants (principal)

== ENCOUNTER → 2025-03-23 09:05 | Outpatient (BNVA) | payer OTHER, SELFPAY | PROVIDERS: PCP Internal Medicine Medical Oncology; Visit Provider Internal Medicine Medical Oncology | DX: Z79.01 Long term (current) use of anticoagulants (principal) | CPT/HCPCS: 85610; 99211 ==

== ENCOUNTER 2025-03-31 09:48 | Outpatient (AMB) | payer OTHER, SELFPAY ==
[2025-03-31 10:01] LABS: Prothrombin Time Whole Bld POC 39.8 sec (11.1-13.5); ~PT, ~INR - Anti Coag Clinic 3.3 (0.9-1.1)
--- NOTE | 2025-03-31 10:06 | MHC.OFFVISCO ---
Intake Intake Visit Reasons: Anticoagulation Allergies ciprofloxacin (From CIPRO) Allergy (Severe, Verified 03/31/25 09:57) ANAPHYLAXIS fentanyl (FENTANYL) Allergy (Severe, Verified 03/31/25 09:57) ANAPHYLAXIS levofloxacin (From LEVAQUIN) Allergy (Severe, Verified 03/31/25 09:57) Anaphylaxis morphine (MORPHINE) Allergy (Severe, Verified 03/31/25 09:57) ANAPHYLAXIS oxycodone (OXYCODONE) Allergy (Severe, Verified 03/31/25 09:57) ANAPHYLAXIS propofol Allergy (Intermediate, Verified 03/31/25 09:57) Nausea and Vomiting Narcotics Allergy (Severe, Uncoded 03/31/25 09:57) Anaphylaxis Medication List - Last Reconciled 03/31/25 by Kacey Falcon, RN krill oil 1,000 mg PO DAILY levonorgestrel (Liletta) 20.4 mcg intrauterine USEASDIRECTD [LIVER HEALTH PO] multivitamin 1 tab PO DAILY warfarin 2.5 mg See Protocol PO DAILY warfarin (Jantoven) 10 mg See Protocol PO DAILY Nursing Note INR: 3.3 out of therapeutic range of 2-3 Medications and supplements reviewed Patient status: c/o arthritits pain and taking tylenol Medications or supplements: no changes Diet: usual diet but has increased greens Denies any signs and symptoms of bleeding or clotting or unusual bruising Bleeding, bruising, clotting discussed Nutritional guidance given: have a serving of greens today Dose: 12.5mg daily F/U INR Date: 2 weeks? Patient verbalizing understanding of instructions given. 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
--- OUTSIDE RECORDS SUMMARY | 2025-03-31 11:30 | XMS_ITS | Clinical Summary ---
Author Organization [facility] Address [address] [place] [address] Phone Care Team Providers Care Tank Processor Name Role Phone Reji Evans MD Primary Care Provider [phone] [phone] Allergies Active Allergy Reactions Criticality Noted Date [...] on patient's age to complete this topic IPV VACCINES Aged Out No longer eligi ble based on patient's age to complete this topic MENINGOCOCCAL VACCINES (ACWY) Aged Out No longer eligible based on patient's age to complete this topic MENINGOCOCCAL VACCINES (B) Aged Out N o longer eligible based on patient's age to complete this topic Medical Devices Not on file Insurance O [facility] [address] [place], [place] [address] [place], [place] [address] [facility] [address] [place] [place] [address] [place] [address]S [facility] PPO PHCS Care Teams Tank Processor Relationship Specialty Start Date End Date Reji Evans MD PCP - General Internal Medicine 05/03/19 Additional Source Comments The information contained in this document represents components of the legal health record. It is not the complete legal health record.[facility]
== END 2025-03-31 10:11 | disposition home or self-care (01) ==
LOC: HO.ACS 09:48
PROVIDERS: PCP Internal Medicine Medical Oncology; Visit Provider Internal Medicine Medical Oncology
DX: Z79.01 Long term (current) use of anticoagulants (principal)

== ENCOUNTER → 2025-03-31 09:48 | Outpatient (BNVA) | payer OTHER, SELFPAY | PROVIDERS: PCP Internal Medicine Medical Oncology; Visit Provider Internal Medicine Medical Oncology | DX: Z79.01 Long term (current) use of anticoagulants (principal) | CPT/HCPCS: 85610; 99211 ==

== ENCOUNTER 2025-04-13 10:36 | Outpatient (AMB) | payer OTHER, SELFPAY ==
[2025-04-13 10:41] LABS: Prothrombin Time Whole Bld POC 31.2 sec (11.1-13.5); ~PT, ~INR - Anti Coag Clinic 2.6 (0.9-1.1)
--- NOTE | 2025-04-13 10:53 | MHC.OFFVISCO ---
Intake Intake Visit Reasons: Anticoagulation Allergies ciprofloxacin (From CIPRO) Allergy (Severe, Verified 04/13/25 10:37) ANAPHYLAXIS fentanyl (FENTANYL) Allergy (Severe, Verified 04/13/25 10:37) ANAPHYLAXIS levofloxacin (From LEVAQUIN) Allergy (Severe, Verified 04/13/25 10:37) Anaphylaxis morphine (MORPHINE) Allergy (Severe, Verified 04/13/25 10:37) ANAPHYLAXIS oxycodone (OXYCODONE) Allergy (Severe, Verified 03/31/25 09:57) ANAPHYLAXIS propofol Allergy (Intermediate, Verified 04/13/25 10:37) Nausea and Vomiting Narcotics Allergy (Severe, Uncoded 03/31/25 09:57) Anaphylaxis Medication List - Last Reconciled 04/13/25 by Tiffanie Rosario RN krill oil 1,000 mg PO DAILY levonorgestrel (Liletta) 20.4 mcg intrauterine USEASDIRECTD [LIVER HEALTH PO] multivitamin 1 tab PO DAILY warfarin 2.5 mg See Protocol PO DAILY warfarin (Jantoven) 10 mg See Protocol PO DAILY Nursing Note NO CP,SOB,DIET/MED CHANGES,FALLS OR SX OF BLEEDING. CONTINUE PRESENT DOSE AND FOLLOW-UP ON 04/22/25. PT.REQUESTS HOME MONITORING. 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
--- OUTSIDE RECORDS SUMMARY | 2025-04-13 12:44 | XMS_ITS | Clinical Summary ---
Author Organization [facility] Address [address] [place] [address] Phone Care Team Providers Care Aerospace Manager Name Role Phone Reji Evans MD Primary Care Provider +1 [phone] Allergies Active Allergy Reactions Criticality Noted Date [...] Additional history exists COVID-19 VACCINE ( - 2024- season) 2025 08/05/2021, 08/05/2021, 01/06/2021, Additional history [...] Devices Not on file Insurance [facility] [address] [place], [place] [address] [place], [place] [address] [place] [address] [place] [address] [place] [address] [place] [address] [place] [address] [facility] PPO PHCS Care Teams Aerospace Manager Relationship Specialty Start Date End Date Reji Evans MD [address] [place] [address] Dr Antoine [address] [place] [phone] PCP - General Internal Medicine 05/03/19 Additional Source Comments The information contained in this document represents components of the legal health record. It is not the complete legal health record.[facility]
== END 2025-04-13 10:57 | disposition home or self-care (01) ==
LOC: HO.ACS 10:36
PROVIDERS: PCP Internal Medicine Medical Oncology; Visit Provider Internal Medicine Medical Oncology
DX: Z79.01 Long term (current) use of anticoagulants (principal)

== ENCOUNTER → 2025-04-13 10:36 | Outpatient (BNVA) | payer OTHER, SELFPAY | PROVIDERS: PCP Internal Medicine Medical Oncology; Visit Provider Internal Medicine Medical Oncology | DX: I26.99 Other pulmonary embolism without acute cor pulmonale (principal); Z79.01 Long term (current) use of anticoagulants; Z51.81 Encounter for therapeutic drug level monitoring | CPT/HCPCS: 85610; 99211 ==

== ENCOUNTER 2025-04-21 08:31 | Outpatient (AMB) | payer OTHER, SELFPAY ==
[2025-04-21 08:37] LABS: Prothrombin Time Whole Bld POC 22.7 sec (11.1-13.5); ~PT, ~INR - Anti Coag Clinic 1.9 (0.9-1.1)
--- NOTE | 2025-04-21 08:43 | MHC.OFFVISCO ---
Intake Intake Visit Reasons: Anticoagulation Allergies ciprofloxacin (From CIPRO) Allergy (Severe, Verified 04/21/25 08:32) ANAPHYLAXIS fentanyl (FENTANYL) Allergy (Severe, Verified 04/21/25 08:32) ANAPHYLAXIS levofloxacin (From LEVAQUIN) Allergy (Severe, Verified 04/21/25 08:32) Anaphylaxis morphine (MORPHINE) Allergy (Severe, Verified 04/21/25 08:32) ANAPHYLAXIS oxycodone (OXYCODONE) Allergy (Severe, Verified 04/21/25 08:32) ANAPHYLAXIS propofol Allergy (Intermediate, Verified 04/21/25 08:32) Nausea and Vomiting Narcotics Allergy (Severe, Uncoded 04/21/25 08:32) Anaphylaxis Nursing Note INR: 1.9 almost therapeutic range Medications and supplements reviewed No changes in health, diet, medications, or supplements, Denies any signs and symptoms of bleeding or bruising or clotting. 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
--- OUTSIDE RECORDS SUMMARY | 2025-04-21 09:08 | XMS_ITS | Clinical Summary ---
Author Organization [facility] Address [address] [place] [address] Phone Care Team Providers Care Link Trainer Maintenance Worker Name Role Phone Reji Evans MD Primary Care Provider [phone] [phone] Allergies Active Allergy Reactions Criticality Noted Date [...] topic Medical Devices Not on file [facility] [address] [place], [place] [address] [place] [address] [place] [address] [place] [address] [place] [address] [place] [address] [place] [address] [facility] PPO PHCS Care Teams Link Trainer Maintenance Worker Relationship Specialty Start Date End Date Reji Evans MD [address] [place] [address] Dr Antoine [address] [place] [phone] PCP - General Internal Medicine 05/03/19 Additional Source Comments The information contained in this document represents components of the legal health record. It is not the complete legal health record.[facility]
== END 2025-04-21 08:45 | disposition home or self-care (01) ==
LOC: HO.ACS 08:31
PROVIDERS: PCP Internal Medicine Medical Oncology; Visit Provider Internal Medicine Medical Oncology
DX: Z79.01 Long term (current) use of anticoagulants (principal)

== ENCOUNTER → 2025-04-21 08:31 | Outpatient (BNVA) | payer OTHER, SELFPAY | PROVIDERS: PCP Internal Medicine Medical Oncology; Visit Provider Internal Medicine Medical Oncology | DX: I26.99 Other pulmonary embolism without acute cor pulmonale (principal); Z51.81 Encounter for therapeutic drug level monitoring; Z79.01 Long term (current) use of anticoagulants | CPT/HCPCS: 85610; 99211 ==

== ENCOUNTER 2025-05-05 15:24 | Outpatient (AMB) | payer OTHER, SELFPAY ==
--- NOTE | 2025-05-05 15:30 | MHC.OFFVISCO ---
Intake Intake Visit Reasons: Anticoagulation Allergies ciprofloxacin (From CIPRO) Allergy (Severe, Verified 05/05/25 15:26) ANAPHYLAXIS fentanyl (FENTANYL) Allergy (Severe, Verified 05/05/25 15:26) ANAPHYLAXIS levofloxacin (From LEVAQUIN) Allergy (Severe, Verified 05/05/25 15:26) Anaphylaxis morphine (MORPHINE) Allergy (Severe, Verified 05/05/25 15:26) ANAPHYLAXIS oxycodone (OXYCODONE) Allergy (Severe, Verified 05/05/25 15:26) ANAPHYLAXIS propofol Allergy (Intermediate, Verified 05/05/25 15:26) Nausea and Vomiting Narcotics Allergy (Severe, Uncoded 05/05/25 15:26) Anaphylaxis Medication List - Last Reconciled 05/05/25 by Lakesha Winkler RN krill oil 1,000 mg PO DAILY levonorgestrel (Liletta) 20.4 mcg intrauterine USEASDIRECTD [LIVER HEALTH PO] multivitamin 1 tab PO DAILY warfarin 2.5 mg See Protocol PO DAILY warfarin (Jantoven) 10 mg See Protocol PO DAILY Nursing Note INR: 2.7- in therapeutic range 2-3 Medications and supplements reviewed- no changes No changes in health, diet, medications, or supplements, Denies any signs and symptoms of bleeding or bruising or clotting. Bleeding, bruising, clotting discussed Nutritional guidance given Dose: 12.5mg x 7 F/U INR: pt req 3 weeks Patient verbalizes understanding of instructions given acelis called to speak to rep regarding home meter. Anti-Coag Initial Assessment Social Hx Patient Tobacco Use Status: Former Tobacco user Tobacco use type: Cigarette alcohol intake: never Alcohol intake frequency: holidays/special occasions only Coding Level of Care Code Est Patient Level 1 Diagnoses Current use of anticoagulant therapy Z79.01 Assessment & Plan Assessment & Plan (1) Current use of anticoagulant therapy: Code(s): Z79.01 - assisted (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
[2025-05-05 15:32] LABS: Prothrombin Time Whole Bld POC 32.2 sec (11.1-13.5); ~PT, ~INR - Anti Coag Clinic 2.7 (0.9-1.1)
--- OUTSIDE RECORDS SUMMARY | 2025-05-05 19:22 | XMS_ITS | Clinical Summary ---
Author Organization [facility] Address [address] [place] [id number] Phone Care Team Providers Care Compliance Review Specialist Name Role Phone Reji Evans MD Primary Care Provider [phone] Allergies Active Allergy Reactions Criticality Noted Date [...] topic Medical Devices Not on file Insurance [facility] [address] [place], [place] [address] [place], [place] [address] [place] [address] [place] [address] [place] [address] [place] [address] [place] [address] [facility] Care Teams Compliance Review Specialist Relationship Specialty Start Date End Date Reji Evans MD [address] [place] [address] Dr Antoine [address] [place] [id number] PCP - General Internal Medicine 05/03/19 Additional Source Comments The information contained in this document represents components of the legal health record. It is not the complete legal health record.[facility]
== END 2025-05-05 15:58 | disposition home or self-care (01) ==
LOC: HO.ACS 15:24
PROVIDERS: PCP Internal Medicine Medical Oncology; Visit Provider Internal Medicine Medical Oncology
DX: Z79.01 Long term (current) use of anticoagulants (principal)

== ENCOUNTER → 2025-05-05 15:24 | Outpatient (BNVA) | payer OTHER, SELFPAY | PROVIDERS: PCP Internal Medicine Medical Oncology; Visit Provider Internal Medicine Medical Oncology | DX: I26.99 Other pulmonary embolism without acute cor pulmonale (principal); Z79.01 Long term (current) use of anticoagulants; Z51.81 Encounter for therapeutic drug level monitoring | CPT/HCPCS: 85610; 99211 ==